=== PATIENT | female | born 1945 | race Caucasian/White ===

== ENCOUNTER 2016-03-29 16:04 | Inpatient (IN) | payer OTHER ==
[~2016-03-29] VITALS: Ht 160 cm; Wt 98.6 kg
[2016-03-29] VITALS (10 sets, daily range): BP systolic 117–149; BP diastolic 60–78; PULSE 79–91; TEMP 37.6–38; O2SAT 92–96; Ht 160 cm; Wt 98.6 kg
[~2016-03-29 16:04] MED LIST: CEPH500C2 PO; CHOL400T PO; DLN100 PO; IPRA1AER2 INH; LEVE500T PO; LPR25 PO; MECL1TAB40 PO; MONT1TAB3 PO; OMEP20CA9 PO; PRED20TA PO; SODIUM CHLORIDE 0.9% 1000ML 1,000 ML IV SCH
--- NOTE | 2016-03-29 16:17 | DIAGNOSTIC IMAGING REPORT ---
CT HEAD WITHOUT CONTRAST (CT) CLINICAL HISTORY: Stroke COMPARISON STUDY: February 23, 2015 TECHNIQUE: Axial CT of the brain is performed from the vertex to the skull base. IV contrast was not administered for this examination. CT DOSE: 2838.54 mGycm FINDINGS: No intra or extra-axial mass lesions are visualized. There is no CT evidence of acute cortical infarction. There is no evidence of midline shift. There is no acute hemorrhage. No calvarial fractures are visualized. There are extensive periventricular white matter hypodensities likely on a small vessel basis. There is no evidence of pathologic ventricular dilatation. There is no evidence of acute sinusitis. There is chronic dense calcification of the left globe. IMPRESSION: Extensive white matter disease similar to the prior study. No acute intracranial findings. Electronically signed by: Saurabh Sesay M.D. 03/29/2016 4:15 PM Dictated Date/Time: 03/29/2016 4:13 PM
[2016-03-29 16:41] LABS: BASO % 0.5 %; BASO ABS # 0.04 K/uL (0-0.2); COMPLETE YES; EOS % 1.8 %; HEMATOCRIT 34.6 % (37-47); IG% 0.3 %; LYMPH % 15.7 %; LYMPH ABS # 1.15 K/uL (1.2-3.4); MEAN CELL VOLUME 78.5 fL (80-100); MEAN CORPUSCULAR HEMOGLOBIN 24.7 pg (25-34); MEAN CORPUSCULAR HGB CONC 31.5 g/dl (32-36); MEAN PLATELET VOLUME 9.9 fL (7.4-10.4); MONO % 5.9 %; NEUT % 75.8 %; PLATELET COUNT 196 K/uL (130-400); RED BLOOD COUNT 4.41 M/uL (4.2-5.4); WHITE BLOOD COUNT 7.31 K/uL (4.8-10.8)
[2016-03-29 16:43] LABS: ISTAT CREATININE 0.7 mg/dl (0.6-1.3); ISTAT HEMOGLOBIN 11.9 g/dl (12.0-16.0); ISTAT IONIZED CALCIUM 1.13 mmol/l (1.12-1.32)
[2016-03-29] MEDS ORDERED: RECOMBINANT IV STA (16:44)
[2016-03-29] MEDS ORDERED: ALTEPLASE IV STA (16:44)
[2016-03-29 16:52] LABS: PROTHROMBIN TIME (PATIENT) 10.8 SECONDS (9.0-12.0)
[2016-03-29] MEDS ORDERED: HYDR-4079 PO (17:11)
[2016-03-29] MEDS ORDERED: PHN/100 PO (17:11)
[2016-03-29] MEDS ORDERED: LEVE750T PO (17:11)
[2016-03-29] MEDS ORDERED: ERGO500037 PO (17:11)
[2016-03-29] MEDS ORDERED: AMOX875T PO (17:11)
[2016-03-29] MEDS ORDERED: ADVIN50/60 INH (17:11)
[2016-03-29] MEDS ORDERED: ATOR-24 PO (17:11)
[2016-03-29] MEDS ORDERED: VNTHFA/IN INH (17:11)
[2016-03-29] MEDS ORDERED: METO25TA56 PO (17:11)
[2016-03-29 17:15] LABS: BLOOD UREA NITROGEN 11 mg/dl (7-18); BUN/CREATININE RATIO 13.3 (10-20); CALCIUM 8.8 mg/dl (8.5-10.1); CARBON DIOXIDE 28 mmol/L (21-32); CHLORIDE 104 mmol/L (98-107); CREATININE 0.82 mg/dl (0.60-1.20); GLUCOSE 114 mg/dl (70-99); POTASSIUM 4.2 mmol/L (3.5-5.1); SODIUM 139 mmol/L (136-145)
[2016-03-29 17:20] LABS: CKMB/CK RATIO 1.5 (0-3.0)
[2016-03-29 17:32] LABS: ALKALINE PHOSPHATASE 126 U/L (45-117); ALT/SGPT 24 U/L (12-78); AST/SGOT 30 U/L (15-37)
[2016-03-29] MEDS ORDERED: ONDANSETRON INJ 2 MG/ML 2 ML VIAL IV PRN (18:15)
[2016-03-29] MEDS ORDERED: ACETAMINOPHEN 325 MG TAB PO PRN (18:15)
[2016-03-29] MEDS ORDERED: PHARMACIST DISCHARGE MED REC CONSULT PRN (18:30)
[2016-03-29] MEDS ORDERED: DEXTROSE 50% 50 ML SYR IV PRN (18:45)
[2016-03-29] MEDS ORDERED: GLUCOSE 10 TABS/TUBE PO PRN (18:45)
[2016-03-29] MEDS ORDERED: GLUCOSE 40% GEL 15 GM TUBE PO PRN (18:45)
[2016-03-29] MEDS ORDERED: GLUCAGON FOR INJ 1 MG VIAL SQ PRN (18:45)
[2016-03-29] MEDS ORDERED: MECLIZINE HCL 12.5 MG TAB PO PRN (18:45)
[2016-03-29 18:57] LABS: URINE APPEARANCE CLEAR (CLEAR); URINE BILIRUBIN NEG (NEG); URINE COLOR YELLOW; URINE EPITHELIAL CELL AUTO 20-30 /lpf (0-5); URINE NITRITE NEG (NEG); URINE PH 8.5 (4.5-7.5); URINE SPECIFIC GRAVITY 1.017 (1.000-1.030); UROBILINOGEN NEG (NEG); ZZUR CULT IF INDIC CLEAN CATCH NO
[2016-03-29 18:59] LABS: MANUAL MICROSCOPIC REQUIRED? NO; REVIEW REQ? NO; SULFASALICYLIC ACID POS (NEG)
[2016-03-29 19:24] LABS: BENZODIAZEPINE, URINE NEG (NEG); COCAINE,URINE NEG (NEG); PHENCYCLIDINE, URINE NEG (NEG)
--- NOTE | 2016-03-29 19:48 | History and Physical ---
History & Physical Date & Time of Service: Mar 29, 2016 at 18:34 Chief Complaint: Stroke Alert Primary Care Physician: Fitz Kapoor M.D. History of Present Illness Source: patient, family, hospital records This is a 70 year old female with PMH of probable small right medial temporal lobe stroke in mid December 2014 as per records, seizure disorder with history of positive EEG, history of STEMI in Dec 2014 as per records, HL, DM type 2, COPD, and other problems listed below who presents to the ED for stroke like symptoms. Pt is a somewhat poor historian about her medical history. Patient states around 1430 she was in her usual state of health when she developed left arm and leg weakness and numbness. She was unable to walk due to leg weakness. Her called 911 and she was brought to the ER by ambulance. states her speech was transiently abnormal when EMS arrived. Once she arrived to the ER she was noted to have left sided motor and sensory deficit so stroke alert was called, teleconference done with [facility]ist Dr. Queen who recommended tPA which was given at 16:44. Patient reports improvement of her weakness s/p tPA. Patient reports frontal [place] with unclear duration. denies any facial droop. Pt denies acute change in vision (has chronic L eye blindness), swallowing difficulty, recent seizure like activity, LOC. Denies recent fevers, URI or flu like illness, chest pain, SOB, abdominal pain, nausea , vomiting, diarrhea, urinary changes, abnormal bleeding. Patient/ not aware of prior stroke or CAD history in the hospital records. Denies hx of arrhythmia. Denies history of open heart surgery or any coronary intervention. Past Medical/Surgical History Medical Problems: (1) CVA (cerebral vascular accident) Status: Chronic (2) Diabetes Permanent Comment: type 2 Status: Chronic (3) Hx of non-ST elevation myocardial infarction (NSTEMI) Status: Chronic (4) Hypercholesteremia Status: Chronic (5) Seizure disorder Permanent Comment: EEG positive in 04/2014 Status: Chronic Surgical Problems: (1) No significant past surgical history Status: Chronic Family History Unobtainable Social History Smoking Status: Former Smoker Alcohol Use: none Drug Use: none Marital Status: Housing status: lives with significant other Occupational Status: unemployed Immunizations History of Influenza Vaccine: Unknown History of Tetanus Vaccine?: Unknown History of Pneumococcal: Unknown History of Hepatitis B Vaccine: Unknown Allergies Coded Allergies: No Known Allergies (Unverified , 12/31/15) unable to obtain allergy info from patient.. -altered mental status Home Medications Scheduled Albuterol Hfa (Ventolin Hfa), 2 PUFFS INH BID Amoxicillin & Pot Clavulanate (Augmentin 875-125 mg), 1 TAB PO BID Atorvastatin (Lipitor), 40 MG PO DAILY Ergocalciferol (Vitamin D 23936 Unit), 50,000 UNIT PO WK Fluticasone Prop/Salmeterol (Advair Diskus 500/50 60 Dose), 1 PUFF INH BID Hydrocodone/Acetaminophen 10MG/325MG ([place] 10MG/325MG), 1 TAB PO 5XD Levetiracetam (Keppra), 750 MG PO BID Metoprolol Tartrate (Lopressor) (Lopressor), 25 MG PO BID Montelukast Sodium (Singulair), 10 MG PO DAILY Omeprazole (Prilosec), 20 MG PO DAILY Phenytoin Sodium (Dilantin), 200 MG PO BID Scheduled PRN Meclizine Hcl (Meclizine Hcl), 12.5 MG PO TID PRN for Dizziness or Vertigo Review of Systems Ten point review of systems performed with pertinent positives negatives listed in HPI. Physical Exam Vital Signs Date Time Temp Pulse Resp B/P Pulse Ox O2 Delivery O2 Flow Rate FiO2 03/29/16 18:30 78 20 153/87 93 Room Air 03/29/16 18:15 75 18 158/138 98 Room Air 03/29/16 18:00 75 22 128/58 98 Room Air 03/29/16 17:43 80 18 132/89 95 Room Air 03/29/16 17:30 77 16 133/60 98 03/29/16 17:15 81 18 136/103 98 Room Air 03/29/16 17:09 82 20 152/69 93 Room Air 03/29/16 17:00 82 152/69 93 Room Air 03/29/16 16:48 83 20 121/81 97 Room Air 03/29/16 16:22 88 03/29/16 16:10 37.2 85 22 156/107 97 Room Air 03/29/16 16:10 96 Room Air General Appearance: WD/WN, no apparent distress, + pertinent finding (alert, cooperative. poor hygiene. at bedside) Head: normocephalic, atraumatic Eyes: normal inspection, EOMI, + pertinent finding (right pupil reactive to light. left pupil is opaque and nonreactive. ) ENT: hearing grossly normal, pharynx normal Neck: supple, no JVD, no carotid bruits, trachea midline Respiratory/Chest: lungs clear, normal breath sounds, no accessory muscle use Cardiovascular: regular rate, rhythm, no murmur Abdomen/GI: normal bowel sounds, non tender, soft Extremities/Musculoskelatal: normal inspection, no calf tenderness, normal capillary refill, no pedal edema Neurologic/Psych: associate art director II-XII nml as tested, no motor/sensory deficits, alert, normal mood/affect, oriented x 3 Skin: normal color, warm/dry Diagnostics Laboratory Results Results Past 24 Hours Test 03/29/16 16:21 03/29/16 16:26 03/29/16 16:27 03/29/16 18:30 Range/Units Bedside Glucose 104 70-90 mg/dl Bedside Hemoglobin 11.9 12.0-16.0 g/dl Bedside Hematocrit 35 37-47 % Bedside Sodium 141 135-144 mEq/L Bedside Potassium 4.3 3.3-5.0 mEq/L Bedside Chloride 102 101-112 mEq/L Bedside Total CO2 26 24-31 mEq/l Anion Gap 19.0 7.0 3-11 mmol/L Bedside Blood Urea Nitrogen 11 7-18 mg/dl Bedside Creatinine 0.7 0.6-1.3 mg/dl Bedside Glucose (other) 120 70-99 mg/dl Bedside Ionized Calcium (Jerzy) 1.13 1.12-1.32 mmol/l White Blood Count 7.31 4.8-10.8 K/uL Red Blood Count 4.41 4.2-5.4 M/uL Hemoglobin 10.9 12.0-16.0 g/dL Hematocrit 34.6 37-47 % Mean Corpuscular Volume 78.5 80-100 fL Mean Corpuscular Hemoglobin 24.7 25-34 pg Mean Corpuscular Hemoglobin Concent 31.5 32-36 g/dl Platelet Count 196 130-400 K/uL Mean Platelet Volume 9.9 7.4-10.4 fL Neutrophils (%) (Auto) 75.8 % Lymphocytes (%) (Auto) 15.7 % Monocytes (%) (Auto) 5.9 % Eosinophils (%) (Auto) 1.8 % Basophils (%) (Auto) 0.5 % Neutrophils # (Auto) 5.54 1.4-6.5 K/uL Lymphocytes # (Auto) 1.15 1.2-3.4 K/uL Monocytes # (Auto) 0.43 0.11-0.59 K/uL Eosinophils # (Auto) 0.13 0-0.5 K/uL Basophils # (Auto) 0.04 0-0.2 K/uL RDW Standard Deviation 45.7 36.4-46.3 fL RDW Coefficient of Variation 15.9 11.5-14.5 % Immature Granulocyte % (Auto) 0.3 % Immature Granulocyte # (Auto) 0.02 0.00-0.02 K/uL Prothrombin Time 10.8 9.0-12.0 SECONDS Prothromb Time International Ratio 1.0 0.9-1.1 Activated Partial Thromboplast Time 25.0 21.0-31.0 SECONDS Partial Thromboplastin Ratio 1.0 Sodium Level 139 136-145 mmol/L Potassium Level 4.2 3.5-5.1 mmol/L Chloride Level 104 98-107 mmol/L Carbon Dioxide Level 28 21-32 mmol/L Blood Urea Nitrogen 11 7-18 mg/dl Creatinine 0.82 0.60-1.20 mg/dl Est Creatinine Clear Calc Drug Dose 75.1 ml/min Estimated GFR () 84.6 Estimated GFR (Non- 73.0 BUN/Creatinine Ratio 13.3 10-20 Random Glucose 114 70-99 mg/dl Calcium Level 8.8 8.5-10.1 mg/dl Total Bilirubin 0.3 0.2-1 mg/dl Direct Bilirubin < 0.1 0-0.2 mg/dl Aspartate Amino Transf (AST/SGOT) 30 15-37 U/L Alanine Aminotransferase (ALT/SGPT) 24 12-78 U/L Alkaline Phosphatase 126 45-117 U/L Total Creatine Kinase 82 26-192 U/L Creatine Kinase MB 1.2 0.5-3.6 ng/ml Creatine Kinase MB Ratio 1.5 0-3.0 Troponin I < 0.015 0-0.045 ng/ml Total Protein 8.2 6.4-8.2 gm/dl Albumin 3.7 3.4-5.0 gm/dl Phenytoin (Dilantin) Level 14.8 10-20 mcg/mL Diagnostic Radiology CT HEAD WITHOUT CONTRAST (CT) CLINICAL HISTORY: Stroke COMPARISON STUDY: February 23, 2015 TECHNIQUE: Axial CT of the brain is performed from the vertex to the skull base. IV contrast was not administered for this examination. CT DOSE: 2838.54 mGycm FINDINGS: No intra or extra-axial mass lesions are visualized. There is no CT evidence of acute cortical infarction. There is no evidence of midline shift. There is no acute hemorrhage. No calvarial fractures are visualized. There are extensive periventricular white matter hypodensities likely on a small vessel basis. There is no evidence of pathologic ventricular dilatation. There is no evidence of acute sinusitis. There is chronic dense calcification of the left globe. IMPRESSION: Extensive white matter disease similar to the prior study. No acute intracranial findings. EKG NSR, no ST elevation or depression Impression Assessment and Plan POSSIBLE ACUTE CVA Admit to ICU- discussed case with Iglesia Jama PA-C, appreciate assistance Patient with history of probable small right medial temporal lobe stroke in mid December 2014, as per neurology note Presented with acute onset of LUE and LLE weakness and numbness CT head- no acute findings, +extensive white matter disease similar to the prior study [facility] consult done with neurologist Dr. Queen - recommended tPA S/p tPA with resolution of symptoms Check MRI brain, MRA head and neck, echo No antiplatelet or anticoagulant for 24 hours post tPA Repeat CT 24 hours post tPA- if no hemorrhage can start antiplatelet Maintain MAP >90 and BP <180/100- metoprolol held for permissive HTN Continue statin, lipid profile in am IVF's at 100 mL/hour PT, OT, speech evals Neuro checks Consult neurology- pt seen by Dr. Estes on prior admission HYPERTENSION Hold metoprolol for permissive HTN DM TYPE 2 Not on medication Insulin sliding scale Check A1c SEIZURE DISORDER Denies recent seizure activity Continue Dilantin and Keppra ? HX CAD Pt/ not aware Per records had NSTEMI in 12/2014 Echo 02/2015 showed hyperdynamic LV function and class 1 diastolic dysfunction No intervention done as per patient/ COPD Not in acute exacerbation Continue home inhalers and Singulair DYSLIPIDEMIA Continue statin GERD Continue PPI FULL CODE per my discussion with the patient DVT PROPHYLAXIS SCD's Patient seen in collaboration with Dr. Kelley. Please see his addendum. ATTENDING ADDENDUM care coordinated with DORINDA Knox please refer to her notes for full details, I agree with her notes patient seen and examined, records reviewed by myself as well on exam, patient seen resting in bed, awake, alert, in good spirits states left sided weakness and numbness have resolved denies other symptoms VS noted and reviewed oriented x 3, not in distress, speaks in sentences with no effort nor accessory muscle use normal rate, regular rhythm, no murmurs clear breath sounds bilaterally non distended, soft, nontender no bipedal edema, erythema, warmth no neuro deficits WBC 7.3 Crea 0.8 ASSESSMENT/PLAN> POSSIBLE ACUTE CVA S/P TPA - Brain MRI, MRA head and neck, Echo ordered HYPERTENSION hold Metoprolol Clonidine PRN for systolic bp > 180 other diagnoses and plan of care as per DORINDA Knox's notes Nathan Kelley MD VTE Prophylaxis VTE Risk Assessment Done? Y/N: Yes Risk Level: Moderate
--- NOTE | 2016-03-29 20:46 | Critical Care Consultation ---
Critical Care Consultation Date of Consultation: Mar 29, 2016. Attending Physician: Nathan Kelley MD Reason for Consultation: Post-TPA management for acute CVA History of Present Illness Attending: Dr. Rojo Is a 70-year-old female who presented to the emergency department with change of mental status and confusion. The patient reports that she was in her normal state of health early in the day when she began to feel some numbness and paresthesias in her left arm and her left leg. Her was getting her into the truck to run errands when she became unresponsive. She was brought to the [facility] emergency department for further evaluation treatment by ambulance. A stroke alert was called and teleconference was completed with [place] neurologist Dr. Queen. TPA was then administered at 1644. Within several minutes symptoms completely abated. Patient does continue to have a frontal headache which has persisted since earlier this morning. Aside from her left-sided per seizes and weakness she's had no other strokelike symptoms other than slurred speech as reported by her which also resolved after administration of TPA. Patient currently does have a history of seizures confirmed by EEG with Dr. Estes. She also has left eye blindness from chronic cataract. She does have some residual swallowing difficulty. She has poor dental hygiene and multiple auto tooth extraction. She manages a soft diet at home. The patient has no fever, chills, sweats, rigors. She is no nausea or vomiting. She denies diarrhea. She has no awareness of tachyarrhythmias. She has no recent acute illness. She does live in an old farmhouse which they heat with wood pellets. She is unaware of any other asthmatic triggers. She has no acute shortness of breath. She has no other acute complaints. Past Medical/Surgical History Medical Problems: Cataract with complete loss of visual acuity in left eye CVA (cerebral vascular accident) Diabetes Hx reported of non-ST elevation myocardial infarction (NSTEMI) although patient and deny awareness of same Hypercholesteremia Seizure disorder Stroke-like symptoms Hx of mechanical falls Surgical Problems: No significant past surgical history Family History Unobtainable Social History Smoking Status: Former Smoker (quit in 1991) Alcohol Use: none Drug Use: none Marital Status: Housing Status: lives with significant other Occupation Status: unemployed Allergies Coded Allergies: No Known Allergies (Unverified , 12/31/15) unable to obtain allergy info from patient.. -altered mental status Home Medications Scheduled Albuterol Hfa (Ventolin Hfa), 2 PUFFS INH BID Amoxicillin & Pot Clavulanate (Augmentin 875-125 mg), 1 TAB PO BID Atorvastatin (Lipitor), 40 MG PO DAILY Ergocalciferol (Vitamin D 81311 Unit), 50,000 UNIT PO WK Fluticasone Prop/Salmeterol (Advair Diskus 500/50 60 Dose), 1 PUFF INH BID Hydrocodone/Acetaminophen 10MG/325MG ([place] 10MG/325MG), 1 TAB PO 5XD Levetiracetam (Keppra), 750 MG PO BID Metoprolol Tartrate (Lopressor) (Lopressor), 25 MG PO BID Montelukast Sodium (Singulair), 10 MG PO DAILY Omeprazole (Prilosec), 20 MG PO DAILY Phenytoin Sodium (Dilantin), 200 MG PO BID Scheduled PRN Meclizine Hcl (Meclizine Hcl), 12.5 MG PO TID PRN for Dizziness or Vertigo Current Inpatient Medications Current Inpatient Medications Medications (Trade) Dose Ordered Sig/Mabel Route Start Time Stop Time Status Last Admin Dose Admin Acetaminophen (Tylenol Tab) 650 mg Q4H PRN PO 03/29/16 18:15 04/28/16 18:14 Ondansetron HCl (Zofran Inj) 4 mg Q6H PRN IV 03/29/16 18:15 04/28/16 18:14 Miscellaneous Information (Pharmacist Discharge Med Rec Consult) 1 ea UD PRN N/A 03/29/16 18:30 04/28/16 18:29 Albuterol (Ventolin Hfa Inhaler) 2 puffs BID INH 03/29/16 21:00 04/28/16 20:59 Atorvastatin Calcium (Lipitor Tab) 40 mg DAILY PO 03/30/16 09:00 04/29/16 08:59 Miscellaneous Information (Order Awaiting Action) 1 ea QS N/A 03/30/16 08:00 04/29/16 07:59 Salmeterol Xinafoate/ Fluticasone (Advair Diskus 500/50 Inh) 1 puff BID INH 03/29/16 21:00 04/28/16 20:59 Levetiracetam (Keppra Tab) 750 mg BID PO 03/29/16 21:00 04/28/16 20:59 Montelukast Sodium (Singulair Tab) 10 mg QPM PO 03/30/16 21:00 04/29/16 20:59 Phenytoin Sodium (Dilantin Er Cap) 200 mg BID PO 03/29/16 21:00 04/28/16 20:59 Meclizine HCl (Antivert Tab) 12.5 mg TID PRN PO 03/29/16 18:45 04/28/16 18:44 Pantoprazole Sodium (Protonix Tab) 40 mg QAM PO 03/30/16 09:00 04/29/16 08:59 Insulin Aspart (novoLOG ASPART) SLIDING SCALE If C... ACHS SC 03/29/16 21:00 04/28/16 20:59 Glucose (Glucose 40% Gel) 15-30 GRAMS 15 GRAMS... UD PRN PO 03/29/16 18:45 04/28/16 18:44 Glucose (Glucose Chew Tab) 4-8 Tablets 4 Tabl... UD PRN PO 03/29/16 18:45 04/28/16 18:44 Dextrose (Dextrose 50% 50ML Syringe) 25-50ML OF 50% DW IV FOR... UD PRN IV 03/29/16 18:45 04/28/16 18:44 Glucagon 1 mg 1 mg UD PRN SQ 03/29/16 18:45 04/28/16 18:44 Sodium Chloride (Nss 1000ml) 1,000 ml @ 100 mls/hr Q10H IV 03/29/16 18:45 04/28/16 18:44 Review of Systems A total of 12 systems was reviewed and is negative other than as listed above in the HPI Physical Exam Date Time Temp Pulse Resp B/P Pulse Ox O2 Delivery O2 Flow Rate FiO2 03/29/16 20:00 37.9 80 20 120/78 94 Room Air 03/29/16 19:45 37.9 91 16 149/61 03/29/16 19:34 81 18 141/77 98 Room Air 03/29/16 19:01 77 18 146/59 97 03/29/16 18:45 78 20 145/57 98 Room Air 03/29/16 18:30 78 20 153/87 93 Room Air 03/29/16 18:15 75 18 158/138 98 Room Air 03/29/16 18:00 75 22 128/58 98 Room Air 03/29/16 17:43 80 18 132/89 95 Room Air 03/29/16 17:30 77 16 133/60 98 03/29/16 17:15 81 18 136/103 98 Room Air 03/29/16 17:09 82 20 152/69 93 Room Air 03/29/16 17:00 82 152/69 93 Room Air 03/29/16 16:48 83 20 121/81 97 Room Air 03/29/16 16:22 88 03/29/16 16:10 37.2 85 22 156/107 97 Room Air 03/29/16 16:10 96 Room Air GENERAL : No acute distress. Pleasant EYES: No icterus, gaze conjugate. Occlusive left cataract NOSE: No evidence of epistaxis. MOUTH: No lesions or candidiasis. Multiple teeth missing. Do not appreciate any loose teeth. Some appreciation of dental caries. Tongue midline. NECK: Supple. No appreciation of bruits LUNGS: Upper field bilateral expiratory wheezes. Breath sounds equal HEART: Regular, rate controlled. No appreciation of murmurs gallops or rubs. ABDOMEN: Soft, NT, ND, BS Present. Protuberant. No tenderness to deep palpation. No rebound tenderness EXTREMITIES: No LE edema, pedal pulses intact. Poor pedal hygiene NEURO: A&OX3. Left eye with significant cataract. No facial droop. No slurred speech. No pronator drift. Cerebellar function intact with finger to nose and rapid alternating movements. No asterixis. Deep tendon reflexes two out of four all four extremities. Gait and Romberg deferred. Toes downgoing bilaterally. Strength equal bilaterally to upper and lower extremities. Laboratory Results Last 24 Hours Test 03/29/16 16:21 03/29/16 16:26 03/29/16 16:27 03/29/16 18:00 Bedside Glucose 104 mg/dl Bedside Hemoglobin 11.9 g/dl Bedside Hematocrit 35 % Bedside Sodium 141 mEq/L Bedside Potassium 4.3 mEq/L Bedside Chloride 102 mEq/L Bedside Total CO2 26 mEq/l Anion Gap 19.0 mmol/L 7.0 mmol/L Bedside Blood Urea Nitrogen 11 mg/dl Bedside Creatinine 0.7 mg/dl Bedside Glucose (other) 120 mg/dl Bedside Ionized Calcium (Jerzy) 1.13 mmol/l White Blood Count 7.31 K/uL Red Blood Count 4.41 M/uL Hemoglobin 10.9 g/dL Hematocrit 34.6 % Mean Corpuscular Volume 78.5 fL Mean Corpuscular Hemoglobin 24.7 pg Mean Corpuscular Hemoglobin Concent 31.5 g/dl Platelet Count 196 K/uL Mean Platelet Volume 9.9 fL Neutrophils (%) (Auto) 75.8 % Lymphocytes (%) (Auto) 15.7 % Monocytes (%) (Auto) 5.9 % Eosinophils (%) (Auto) 1.8 % Basophils (%) (Auto) 0.5 % Neutrophils # (Auto) 5.54 K/uL Lymphocytes # (Auto) 1.15 K/uL Monocytes # (Auto) 0.43 K/uL Eosinophils # (Auto) 0.13 K/uL Basophils # (Auto) 0.04 K/uL RDW Standard Deviation 45.7 fL RDW Coefficient of Variation 15.9 % Immature Granulocyte % (Auto) 0.3 % Immature Granulocyte # (Auto) 0.02 K/uL Prothrombin Time 10.8 SECONDS Prothromb Time International Ratio 1.0 Activated Partial Thromboplast Time 25.0 SECONDS Partial Thromboplastin Ratio 1.0 Sodium Level 139 mmol/L Potassium Level 4.2 mmol/L Chloride Level 104 mmol/L Carbon Dioxide Level 28 mmol/L Blood Urea Nitrogen 11 mg/dl Creatinine 0.82 mg/dl Est Creatinine Clear Calc Drug Dose 75.1 ml/min Estimated GFR () 84.6 Estimated GFR (Non- 73.0 BUN/Creatinine Ratio 13.3 Random Glucose 114 mg/dl Calcium Level 8.8 mg/dl Total Bilirubin 0.3 mg/dl Direct Bilirubin < 0.1 mg/dl Aspartate Amino Transf (AST/SGOT) 30 U/L Alanine Aminotransferase (ALT/SGPT) 24 U/L Alkaline Phosphatase 126 U/L Total Creatine Kinase 82 U/L Creatine Kinase MB 1.2 ng/ml Creatine Kinase MB Ratio 1.5 Troponin I < 0.015 ng/ml Total Protein 8.2 gm/dl Albumin 3.7 gm/dl Phenytoin (Dilantin) Level 14.8 mcg/mL Urine Color YELLOW Urine Appearance CLEAR Urine pH 8.5 Urine Specific [place] 1.017 Urine Protein TRACE Urine Glucose (UA) NEG Urine Ketones NEG Urine Occult Blood NEG Urine Nitrite NEG Urine Bilirubin NEG Urine Urobilinogen NEG Urine Leukocyte Esterase NEG Urine WBC (Auto) 1-5 /hpf Urine RBC (Auto) 0-4 /hpf Urine Hyaline Casts (Auto) 0 /lpf Urine Epithelial Cells (Auto) 20-30 /lpf Urine Bacteria (Auto) NEG Urine Opiates Screen NEG Urine Methadone, Qualitative NEG Urine Barbiturates NEG Urine Phencyclidine (PCP) Level NEG Ur Amphetamine/Methamphetamine NEG MDMA (Ecstasy) Screen NEG Urine Benzodiazepines Screen NEG Urine Cocaine Metabolite NEG Urine Marijuana (THC) NEG Diagnostic Results CT HEAD WITHOUT CONTRAST (CT) CLINICAL HISTORY: Stroke COMPARISON STUDY: February 23, 2015 TECHNIQUE: Axial CT of the brain is performed from the vertex to the skull base. IV contrast was not administered for this examination. CT DOSE: 2838.54 mGycm FINDINGS: No intra or extra-axial mass lesions are visualized. There is no CT evidence of acute cortical infarction. There is no evidence of midline shift. There is no acute hemorrhage. No calvarial fractures are visualized. There are extensive periventricular white matter hypodensities likely on a small vessel basis. There is no evidence of pathologic ventricular dilatation. There is no evidence of acute sinusitis. There is chronic dense calcification of the left globe. IMPRESSION: Extensive white matter disease similar to the prior study. No acute intracranial findings. Electronically signed by: Saurabh Sesay M.D. 03/29/2016 4:15 PM Assessment & Plan (1) CVA (cerebral vascular accident) CT Head with no evidence of acute abnormality [place] [facility] TpA administered at 1644 No further anticoagulation pending neurological consult Symptoms have abated post TpA Check echo, carotid duplex, repeat CT head in the morning Continue neuro checks per protocol Neuro consult (2) Cataract Patient is aware of possible treatment No interest in eye surgery PT/OT to check for imbalance and function (3) Diabetes HgBA1c pending Random glucose 114 AHA, diabetic diet Novolog sliding scale insulin (4) Hypercholesteremia Check fasting lipids Continue Atorvastatin (5) Seizure disorder Continue home dose of Keppra and Dilantin Phenytoin level 14.8 Seizure precautions as patient reports recent seizure like activity (6) Hx of non-ST elevation myocardial infarction (NSTEMI) Patient denies any history of CAD Monitor on telemetry Request outpatient records Not on an ACEI Home meds include Lopressor 25mg PO BID (7) Asthma Faint expiratory wheezes on exam Patient unaware of she has had PFTs Continue bronchodilators and leukotriene inhibitor Continue Advair diskus 500/50 Oxygenation adequate on room air (8) GERD (gastroesophageal reflux disease) Prilosec at home Continue Pantoprazole while inpatient (9) Need for intravenous access Peripheral IV in place No indication for central line at this time (10) DVT prophylaxis TpA administered 03/29/16 at 1644 No further chemical prophylaxis at this time TEDs/SCDs CCT: 0 mins. Level IV inpatient consult Thank you for including us in the care of this patient. Please refer to Dr. Rojo's addendum for further recommendations I have personally evaluated and examined this patient. I agree with assessment and plan of Chandu Jama PA-C. Patient seen by [facility].
[2016-03-29] MEDS: INSULIN ASPART 100 UNITS/ML 3 ML PEN SC SCH (21:00)
[2016-03-29] MEDS: ALBUTEROL HFA 8 GM INHALER INH SCH (21:00)
[2016-03-29] MEDS: LEVETIRACETAM 250 MG TAB PO SCH (21:08)
[2016-03-29] MEDS: PHENYTOIN SODIUM ER 100 MG CAP PO SCH (21:09)
[2016-03-29] MEDS: FLUTICASONE/SALMETEROL (ADVAIR) 500/50 INH 14 PUFF INH SCH (21:10)
[2016-03-29] MEDS: SODIUM CHLORIDE 0.9% 1000ML 1,000 ML IV SCH (21:21)
[2016-03-29] MEDS ORDERED: CLONIDINE HCL 0.1 MG TAB PO PRN (22:15)
--- NOTE | 2016-03-29 22:51 | EMERGENCY ROOM VISIT NOTE ---
History Report prepared by Mirza: Mily Walters Under the Supervision of: Dr. Maverick Hamilton M.D. First contact with patient: 15:55 Stated Complaint: STROKE ALERT History of Present Illness The patient is a 70 year old female who presents to the Emergency Room with complaints of persistent weakness that began around 1430. The patient reportedly developed sudden onset of flaccid paralysis on the left side at 1430 hrs. She has gotten slightly better. She's had waxing and waning weakness and tremors in the left arm. The patient states that she has a mild headache as well. She denies trauma. She additionally notes weakness in her left arm and left leg. The patient states that she has had numbness in her left leg and states that she has been shaking all over uncontrollably. She denies any neck pain or facial numbness. The patient notes a history of seizures and states that she has been compliant with her medications. Pt denies LOC, headache, visual changes, chest pain, breathing difficulties, nausea, vomiting, abdominal pain, back pain, extremity pain, or other complaints. Source of History: patient Onset: 1430 Position: other (global) Quality: other (weakness) Timing: other (persistent) Associated Symptoms: + headache, + numbness (left leg), + weakness (left leg , left arm), No neck pain Review of Systems See HPI for pertinent positives and negatives. A total of ten systems were reviewed and were otherwise negative. Past Medical & Surgical Medical Problems: (1) Asthma (2) Cataract (3) CVA (cerebral vascular accident) (4) Diabetes (5) DVT prophylaxis (6) GERD (gastroesophageal reflux disease) (7) Hx of non-ST elevation myocardial infarction (NSTEMI) (8) Hypercholesteremia (9) Need for intravenous access (10) Seizure disorder (11) Stroke-like symptoms Surgical Problems: (1) No significant past surgical history Family History Unobtainable Social History Smoking Status: Former Smoker Drug Use: none Marital Status: Housing Status: lives with significant other Occupation Status: unemployed Current/Historical Medications Scheduled Albuterol Hfa (Ventolin Hfa), 2 PUFFS INH BID Amoxicillin & Pot Clavulanate (Augmentin 875-125 mg), 1 TAB PO BID Atorvastatin (Lipitor), 40 MG PO DAILY Ergocalciferol (Vitamin D 58383 Unit), 50,000 UNIT PO WK Fluticasone Prop/Salmeterol (Advair Diskus 500/50 60 Dose), 1 PUFF INH BID Hydrocodone/Acetaminophen 10MG/325MG ([place] 10MG/325MG), 1 TAB PO 5XD Levetiracetam (Keppra), 750 MG PO BID Metoprolol Tartrate (Lopressor) (Lopressor), 25 MG PO BID Montelukast Sodium (Singulair), 10 MG PO DAILY Omeprazole (Prilosec), 20 MG PO DAILY Phenytoin Sodium (Dilantin), 200 MG PO BID Scheduled PRN Meclizine Hcl (Meclizine Hcl), 12.5 MG PO TID PRN for Dizziness or Vertigo Allergies Coded Allergies: No Known Allergies (Unverified , 12/31/15) unable to obtain allergy info from patient.. -altered mental status Physical Exam Vital Signs Date Time Temp Pulse Resp B/P Pulse Ox O2 Delivery O2 Flow Rate FiO2 03/29/16 17:43 80 18 132/89 95 Room Air 03/29/16 17:30 77 16 133/60 98 03/29/16 17:15 81 18 136/103 98 Room Air 03/29/16 17:09 82 20 152/69 93 Room Air 03/29/16 17:00 82 152/69 93 Room Air 03/29/16 16:48 83 20 121/81 97 Room Air 03/29/16 16:22 88 03/29/16 16:10 37.2 85 22 156/107 97 Room Air 03/29/16 16:10 96 Room Air Physical Exam GENERAL: Awake, alert, well appearing, no distress HENT: Normocephalic, atraumatic. TM's normal. Oropharynx unremarkable. 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 Right eye is equal and reactive. EOMI. Normal conjunctiva. Sclera non-icteric. NECK: Supple. No nuchal rigidity. FROM. No JVD or bruit. RESPIRATORY: CTA CARDIAC: RRR. No murmur. ABDOMEN: Soft, non distended. No tenderness to palpation. No rebound or guarding. No masses. RECTAL: Deferred. MUSCULOSKELETAL: Unremarkable. No edema. No discoloration. Gross motor strength symmetric. NEURO: Intermittent rhythmic shaking of left upper arm. Fluctuating weakness in the left leg. Cranial nerves 2-12 grossly intact. Normal sensorium. No sensory or motor deficits noted. Speech normal. No pronator drift. SKIN: No rash or jaundice noted. LYMPH: No adenopathy. Medical Decision & Procedures ER Provider Diagnostic Interpretation: CT: Radiology results as stated below per my review and radiologist interpretation CT HEAD WITHOUT CONTRAST (CT) CLINICAL HISTORY: Stroke COMPARISON STUDY: February 23, 2015 TECHNIQUE: Axial CT of the brain is performed from the vertex to the skull base. IV contrast was not administered for this examination. CT DOSE: 2838.54 mGycm FINDINGS: No intra or extra-axial mass lesions are visualized. There is no CT evidence of acute cortical infarction. There is no evidence of midline shift. There is no acute hemorrhage. No calvarial fractures are visualized. There are extensive periventricular white matter hypodensities likely on a small vessel basis. There is no evidence of pathologic ventricular dilatation. There is no evidence of acute sinusitis. There is chronic dense calcification of the left globe. IMPRESSION: Extensive white matter disease similar to the prior study. No acute intracranial findings. Electronically signed by: Saurabh Seasy M.D. 03/29/2016 4:15 PM Dictated Date/Time: 03/29/2016 4:13 PM Laboratory Results 03/29/16 16:27 Red Blood Count 4.41, Mean Corpuscular Volume 78.5, Mean Corpuscular Hemoglobin 24.7, Mean Corpuscular Hemoglobin Concent 31.5, Mean Platelet Volume 9.9, Neutrophils (%) (Auto) 75.8, Lymphocytes (%) (Auto) 15.7, Monocytes (%) (Auto) 5.9, Eosinophils (%) (Auto) 1.8, Basophils (%) (Auto) 0.5, Neutrophils # (Auto) 5.54, Lymphocytes # (Auto) 1.15, Monocytes # (Auto) 0.43, Eosinophils # (Auto) 0.13, Basophils # (Auto) 0.04 03/29/16 16:27 Test 03/29/16 16:26 03/29/16 16:27 Bedside Hemoglobin 11.9 g/dl (12.0-16.0) Bedside Hematocrit 35 % (37-47) Bedside Sodium 141 mEq/L (135-144) Bedside Potassium 4.3 mEq/L (3.3-5.0) Bedside Chloride 102 mEq/L (101-112) Bedside Total CO2 26 mEq/l (24-31) Bedside Blood Urea Nitrogen 11 mg/dl (7-18) Bedside Creatinine 0.7 mg/dl (0.6-1.3) Bedside Glucose (other) 120 mg/dl (70-99) Bedside Ionized Calcium (Jerzy) 1.13 mmol/l (1.12-1.32) White Blood Count 7.31 K/uL (4.8-10.8) Red Blood Count 4.41 M/uL (4.2-5.4) Hemoglobin 10.9 g/dL (12.0-16.0) Hematocrit 34.6 % (37-47) Mean Corpuscular Volume 78.5 fL (80-100) Mean Corpuscular Hemoglobin 24.7 pg (25-34) Mean Corpuscular Hemoglobin Concent 31.5 g/dl (32-36) Platelet Count 196 K/uL (130-400) Mean Platelet Volume 9.9 fL (7.4-10.4) Neutrophils (%) (Auto) 75.8 % Lymphocytes (%) (Auto) 15.7 % Monocytes (%) (Auto) 5.9 % Eosinophils (%) (Auto) 1.8 % Basophils (%) (Auto) 0.5 % Neutrophils # (Auto) 5.54 K/uL (1.4-6.5) Lymphocytes # (Auto) 1.15 K/uL (1.2-3.4) Monocytes # (Auto) 0.43 K/uL (0.11-0.59) Eosinophils # (Auto) 0.13 K/uL (0-0.5) Basophils # (Auto) 0.04 K/uL (0-0.2) RDW Standard Deviation 45.7 fL (36.4-46.3) RDW Coefficient of Variation 15.9 % (11.5-14.5) Immature Granulocyte % (Auto) 0.3 % Immature Granulocyte # (Auto) 0.02 K/uL (0.00-0.02) Prothrombin Time 10.8 SECONDS (9.0-12.0) Prothromb Time International Ratio 1.0 (0.9-1.1) Activated Partial Thromboplast Time 25.0 SECONDS (21.0-31.0) Partial Thromboplastin Ratio 1.0 Anion Gap 7.0 mmol/L (3-11) Est Creatinine Clear Calc Drug Dose 75.1 ml/min Estimated GFR () 84.6 Estimated GFR (Non- 73.0 BUN/Creatinine Ratio 13.3 (10-20) Calcium Level 8.8 mg/dl (8.5-10.1) Total Bilirubin 0.3 mg/dl (0.2-1) Direct Bilirubin < 0.1 mg/dl (0-0.2) Aspartate Amino Transf (AST/SGOT) 30 U/L (15-37) Alanine Aminotransferase (ALT/SGPT) 24 U/L (12-78) Alkaline Phosphatase 126 U/L (45-117) Total Creatine Kinase 82 U/L (26-192) Creatine Kinase MB 1.2 ng/ml (0.5-3.6) Creatine Kinase MB Ratio 1.5 (0-3.0) Troponin I < 0.015 ng/ml (0-0.045) Total Protein 8.2 gm/dl (6.4-8.2) Albumin 3.7 gm/dl (3.4-5.0) Phenytoin (Dilantin) Level 14.8 mcg/mL (10-20) Laboratory results reviewed by me Medications Administered Medications (Trade) Dose Ordered Sig/Mabel Route Start Time Stop Time Status Last Admin Dose Admin Sodium Chloride 1,000 ml @ 50 mls/hr Q20H IV 03/29/16 16:02 03/29/16 20:20 DC 03/29/16 16:41 50 MLS/HR Alteplase, Recombinant/Empty Bag (Activase Inj/ Empty Iv Bag 100ml) 190 ml @ 0 mls/hr NOW STAT IV 03/29/16 16:44 03/29/16 16:48 DC 03/29/16 16:44 81 MLS/HR ECG Indication: other (stroke symptoms) Rate (beats per minute): 76 Rhythm: normal sinus Findings: no acute ischemic change, no ectopy ED Course 1535: I took the medical command call on the patient and the decision was made to place the patient in room A1 and to call a stroke alert. 1602: Ordered Sodium Chloride 1000 ml @ 50 mls/hr IV. 1604: The patient arrived at the emergency department and was taken straight to have a CT scan. 1616: The patient was evaluated in room A1. A complete history and physical exam was performed. The radiologist additionally called at this time and said that there is no acute stroke. 1625: Records revealed that the patient had an EEG in December 2014 that revealed seizure activity in left frontal and left temporal region 1629: I discussed the patients case with Dr. Queen, [facility] and he states that we should stand by with TPA, and he is going to evaluate the patient over TeleStroke. 1635: I reevaluated the patient and she is still experiencing her symptoms. 1644: Ordered Alteplase Recombinant 90 mg/Empty Bag 190 ml @ 0 mls/hr Protocol IV. 1649: The TPA bolus was administered at this time. 1657: I reevaluated the patient and she is resting comfortably. I discussed the exam findings and I discussed the treatment plan. She verbalized complete understanding and agreement. She will be evaluated for further treatment. 1706: I discussed the patients case with LISBETH Nolan. She is going to evaluate the patient for further treatment. 1723: I reevaluated the patient and she is doing better. Medical Decision Triage Nursing notes reviewed. The patient's presentation and history were concerning for strokelike symptoms. Etiologies such as CVA, TIA, seizure, metabolic, infection, hypo/hyperglycemia, electrolyte abnormalities, cardiac sources, intracerebral event, toxicologic, neurologic, as well as others were entertained. The patient was evaluated. I did take prehospital medical command. A stroke alert was initiated. A CT was done immediately. This was negative for obvious ischemia or bleed. A consultation was placed with [facility]. The patient was evaluated as noted in the consultation. It was felt that she was a candidate for TPA. The patient was given TPA in the standard fashion. Pharmacy was at the bedside. The patient had no contra indications and consented for neurology. On reassessment the patient was feeling somewhat better and had improvement in her weakness. ECG revealed no evidence of dysrhythmia. Cbc, chemistry panel and other blood work was unremarkable. Consultation was made with the hospitalist service. The patient was evaluated in the Emergency Room for further treatment. The chart was completed utilizing [employer] voice recognition software. Grammatical errors, random word insertions, pronoun errors, and incomplete sentences are an occasional consequence of this system due to software limitations, ambient noise, and hardware issues. Any formal questions or concerns about the content, text, or information contained within the body of this dictation should be directly addressed to the physician for clarification. Consults Time Called: 162 Consulting Physician: [facility] Returned Call: 162 I discussed the patients case with [facility] and he states that we should stand by with TPA, and he is going to evaluate the patient over TeleStroke. Additional Consults: Time Called: 170 Consulted Physician: LISBETH Nolan Returned Call: 170 Additional Comments: I discussed the patients case with LISBETH Nolan. She is going to evaluate the patient for further treatment. Impression Primary Impression: CVA (cerebral vascular accident) Critical Care I have personally spent greater than 30 minutes of critical care time in the direct management of this patient. This includes bedside care, interpretation of diagnostic studies, and testing, discussion with consultants and patient, and other required patient management activities. This 30 minutes is in excess of all separately billable procedures. Scribe Attestation The scribe's documentation has been prepared under my direction and personally reviewed by me in its entirety. I confirm that the note above accurately reflects all work, treatment, procedures, and medical decision making performed by me. Departure Information Dispostion Being Evaluated By Hospitalist Fitz Berumen M.D. (PCP)
[2016-03-30] VITALS (25 sets, daily range): BP systolic 114–171; BP diastolic 59–107; PULSE 72–94; TEMP 36.4–37.2; O2SAT 90–97
[2016-03-30] MEDS: [UNRECOGNIZED DRUG - OTHER] SCH ×2 (00:34→00:35)
[2016-03-30] MEDS ORDERED: MAGNEVIST IV PRN (02:15)
[2016-03-30] MEDS: SODIUM CHLORIDE 0.9% 1000ML 1,000 ML IV SCH ×2 (04:43→15:00)
[2016-03-30 06:03] LABS: BASO % 0.3 %; BASO ABS # 0.02 K/uL (0-0.2); COMPLETE YES; EOS % 3.7 %; HEMATOCRIT 30.5 % (37-47); IG% 0.2 %; LYMPH % 24.5 %; LYMPH ABS # 1.47 K/uL (1.2-3.4); MEAN CELL VOLUME 78.2 fL (80-100); MEAN CORPUSCULAR HEMOGLOBIN 24.4 pg (25-34); MEAN CORPUSCULAR HGB CONC 31.1 g/dl (32-36); MEAN PLATELET VOLUME 9.8 fL (7.4-10.4); MONO % 9.8 %; NEUT % 61.5 %; PLATELET COUNT 161 K/uL (130-400); WHITE BLOOD COUNT 6.01 K/uL (4.8-10.8)
[2016-03-30 06:19] LABS: INR 1.2 (0.9-1.1); PROTHROMBIN TIME (PATIENT) 12.4 SECONDS (9.0-12.0)
[2016-03-30 06:27] LABS: BUN/CREATININE RATIO 15.7 (10-20); CALCIUM 8.2 mg/dl (8.5-10.1); CREATININE 0.69 mg/dl (0.60-1.20); POTASSIUM 3.6 mmol/L (3.5-5.1)
[2016-03-30 06:31] LABS: CHOLESTEROL/HDL RATIO 2.8
[2016-03-30] MEDS: INSULIN ASPART 100 UNITS/ML 3 ML PEN SC SCH ×4 (06:45→21:00)
[2016-03-30 06:56] LABS: ESTIMATED AVERAGE GLUCOSE 123 mg/dl; HA1C FLAG Normal (Normal)
--- NOTE | 2016-03-30 07:16 | DIAGNOSTIC IMAGING REPORT ---
Brain MRA HISTORY: stroke TECHNIQUE: 3-D [id number] MRA of the brain was performed without contrast. COMPARISON STUDY: None. FINDINGS: Motion degradation. Visualized intracranial internal carotid arteries, distal vertebral arteries, and basilar artery are widely patent. There is no significant stenosis, occlusion, or aneurysm seen within the bilateral ACAs, MCAs, or glass vial filler. IMPRESSION: Motion degradation. No definite stenosis, occlusion, or aneurysm within the north fork of [place]dy. Electronically signed by: Sherman Hernandez M.D. 03/30/2016 7:14 AM Dictated Date/Time: 03/30/2016 7:11 AM
--- NOTE | 2016-03-30 07:20 | DIAGNOSTIC IMAGING REPORT ---
NECK MRA HISTORY: Stroke symptoms. TECHNIQUE: [id number] and gadolinium-enhanced MRA of the neck was performed both before and after the intravenous administration of contrast. All measurements were calculated based on NASCET criteria. COMPARISON STUDY: Neck CTA 02/22/2015. FINDINGS: Significant motion artifact. The aortic arch and proximal great vessels are widely patent. There is no definite stenosis, occlusion, or dissection identified within the visualized bilateral common carotid, internal carotid, or vertebral arteries. IMPRESSION: Significant motion artifact. No definite stenosis, occlusion, or dissection identified within the carotid or vertebral arteries. Electronically signed by: Sherman Hernandez M.D. 03/30/2016 7:18 AM Dictated Date/Time: 03/30/2016 7:14 AM
--- NOTE | 2016-03-30 07:21 | DIAGNOSTIC IMAGING REPORT ---
MRI OF THE BRAIN COMBO CLINICAL HISTORY: Strokelike symptoms. COMPARISON STUDY: CT of the brain dated 03/29/2016. MRI of the brain dated 02/22/2015. TECHNIQUE: MRI of the brain was performed utilizing various T1 and T2-weighted sequences in the axial, sagittal, and coronal planes. Contrast-enhanced sequences were acquired following the administration of 20 cc of Magnevist. The examination is significantly degraded by motion artifact. The postcontrast images are of limited utility. FINDINGS: Brain parenchyma: There are age-related involutional changes noting moderate confluent subcortical and periventricular microangiopathic disease. Left cerebellar encephalomalacia is unchanged. There is no hemorrhage or mass effect. There is no restricted diffusion to suggest acute ischemia. No enhancing mass lesion is identified on the postcontrast images. Thinning of the corpus callosum is similar to previous. Wilcox-white matter differentiation is preserved. No extra-axial fluid collection is seen. The cerebellar tonsils are normal in configuration. Ventricles, sulci, and cisterns: Prominent secondary to involutional change. Pituitary and sella: Unremarkable. Intracranial vasculature: Normal flow voids are maintained at the skull base. Orbits: The bony orbits are grossly intact. Deformity of the left globe is unchanged from previous. The right orbital contents are normal as imaged. Sinuses and mastoids: Clear. Calvarium: Unremarkable. Cervical cord: Partially visualized cervical spinal cord is normal in morphology and signal intensity. IMPRESSION: 1. Motion degraded examination. 2. There is no hemorrhage, mass effect, or evidence of acute ischemia. 3. Chronic findings as above. There has been no significant change from the 02/22/2015 examination. Electronically signed by: Iglesia Morgan M.D. 03/30/2016 7:19 AM Dictated Date/Time: 03/30/2016 7:15 AM
--- NOTE | 2016-03-30 08:32 | Neurology Consultation ---
Neurology Consultation Date of Consultation: Mar 30, 2016. Attending Physician: Nathan Kelley MD Primary Care Physician: Fitz Kapoor M.D. Reason for Consultation: Patient is a 70-year-old, who was asked to see at the request of Dr. Kelley, for neurologic consultation regarding stroke like symptoms. History of Present Illness Source: patient, caregiver, clinic records, hospital records Patient has a history of seizures which date back to her mid-teen years secondary to her head injury (that led to hospitalization in [place]). She has been on Dilantin ever since her teen years. I first saw this patient in April 2014 for an unresponsive episode. At that time an EEG showed focal, right frontotemporal seizure activity. There were left temporal sharp waves intermittently as well. She was on Dilantin and Keppra was added. MRI of the brain at that time showed no new stroke or any new CVA. She had an unresponsive episode and was hospitalized in December 2014. An MRI of the brain at that time showed a possible new stroke in the right medial temporal lobe. Echocardiogram was unremarkable. She was not compliant with her anticonvulsants and was discharged on Dilantin 200 mg twice a day and Keppra 500 mg twice a day. Her seizures were under fairly good control until February 2015. She was admitted at that time with symptoms of a conflicting account. She had jerking of all of her limbs for 15 minutes with unresponsive and then awoke after 15 minutes. She had some involuntary intermittent movements of her right upper extremity. A tele-stroke consult was obtained with and she was given TPA. She is being transferred to our institution and an MRI of the brain was obtained and showed no new stroke. There was generalized atrophy and old small vessel ischemic changes similar to previous. She was discharged on Dilantin 200 mg twice a day and Keppra 750 mg twice a day. She never returned for follow-up but claims to have been compliant over the course of 2015 with her Dilantin and Keppra. She believes that she's had no seizures this past year. On March 29, 2016, she awoke in her usual state of good health and did well that morning. She was out for an appointment and came home around noon without any symptoms. Sometime between 1 and 2 in the afternoon she felt nauseated although didn't vomit. She lay down and felt that by mid afternoon her left upper extremity was numb and weak and "didn't belong to her". Although there are conflicting accounts, I don't believe she was actually paralyzed but was weak and having some possible involuntary movements of the left side. Leg was affected as well as the arm but she had no facial droop. She felt that her speech was slurred and she had no loss of consciousness that she admits to. There was one note of some confusion but others felt that she wasn't confused. She had a mild bifrontal headache. She arrived at the emergency room at 1610 hours with a temperature 37 2, pulse 85, respiratory rate 22, blood pressure 156/107, and O2 saturation 97%. Neurologic examination was remarkable for fluctuating weakness of the left arm and leg with some abnormal movements or shaking of the left arm. NIH stroke scale was recorded as 3 and a little later as 4. CT scan of the head showed no acute changes and old small vessel ischemic disease as before A tele-stroke consultation was obtained with and TPA was given at 1644 hrs. Apparently her left-sided weakness completely resolved. By the time she was brought to the ICU examination was consistent with no significant neurologic deficits. However, NIH stroke scale overnight by nursing was recorded as 2 at 0630 hours this morning Currently, the patient feels well with no weakness, numbness, pain, headache, speech problems, or confusion. She had no incontinence of urine. She has no vision issues of a new nature. Laboratory studies were unremarkable except for mild anemia and a normal chem profile except for calcium of 8.2. Lipid profile was normal and Dilantin level is 14.8. MRI of the brain showed no acute stroke or bleed. The old ischemic changes were similar to February 2015 MR angiography of the head and neck were degraded by some motion but seemed unremarkable with no significant stenoses or aneurysm. Past Medical/Surgical History Medical Problems: (1) CVA (cerebral vascular accident) Status: Chronic (2) Hypoxia Status: Acute (3) S/P administration of tPA (rtPA) in a different facility within the last 24 hours prior to admission to current facility Status: Acute Hypertension Diabetes Dyslipidemia Seizure disorder No history of prior surgery although the patient has a left carpal tunnel syndrome repair scar she denies having had that surgery. Family History Patient is adopted and has no record knowledge of any medical problems of her biological parents Social History Patient quit cigarette smoking in 1991. She does not use alcohol. She has never been employed. She lives with her . Smoking Status: Former smoker Smokeless Tobacco Use: No Alcohol Use: none Drug Use: none Marital Status: Housing Status: lives with significant other Occupation Status: unemployed Allergies Coded Allergies: No Known Allergies (Unverified , 12/31/15) unable to obtain allergy info from patient.. -altered mental status Current Inpatient Medications Current Inpatient Medications Medications (Trade) Dose Ordered Sig/Mabel Route Start Time Stop Time Status Last Admin Dose Admin Acetaminophen (Tylenol Tab) 650 mg Q4H PRN PO 03/29/16 18:15 04/28/16 18:14 03/30/16 04:25 650 MG Ondansetron HCl (Zofran Inj) 4 mg Q6H PRN IV 03/29/16 18:15 04/28/16 18:14 Miscellaneous Information (Pharmacist Discharge Med Rec Consult) 1 ea UD PRN N/A 03/29/16 18:30 04/28/16 18:29 Albuterol (Ventolin Hfa Inhaler) 2 puffs BID INH 03/29/16 21:00 04/28/16 20:59 03/29/16 21:00 2 PUFFS Atorvastatin Calcium (Lipitor Tab) 40 mg DAILY PO 03/30/16 09:00 04/29/16 08:59 Miscellaneous Information (Order Awaiting Action) 1 ea QS N/A 03/30/16 08:00 04/29/16 07:59 Salmeterol Xinafoate/ Fluticasone (Advair Diskus 500/50 Inh) 1 puff BID INH 03/29/16 21:00 04/28/16 20:59 03/29/16 21:10 1 PUFF Levetiracetam (Keppra Tab) 750 mg BID PO 03/29/16 21:00 04/28/16 20:59 03/29/16 21:08 750 MG Montelukast Sodium (Singulair Tab) 10 mg QPM PO 03/30/16 21:00 04/29/16 20:59 Phenytoin Sodium (Dilantin Er Cap) 200 mg BID PO 03/29/16 21:00 04/28/16 20:59 1/5/17 21:09 200 MG Meclizine HCl (Antivert Tab) 12.5 mg TID PRN PO 03/29/16 18:45 04/28/16 18:44 Pantoprazole Sodium (Protonix Tab) 40 mg QAM PO 03/30/16 09:00 04/29/16 08:59 Insulin Aspart (novoLOG ASPART) SLIDING SCALE If C... ACHS SC 03/29/16 21:00 04/28/16 20:59 Glucose (Glucose 40% Gel) 15-30 GRAMS 15 GRAMS... UD PRN PO 03/29/16 18:45 04/28/16 18:44 Glucose (Glucose Chew Tab) 4-8 Tablets 4 Tabl... UD PRN PO 03/29/16 18:45 04/28/16 18:44 Dextrose (Dextrose 50% 50ML Syringe) 25-50ML OF 50% DW IV FOR... UD PRN IV 03/29/16 18:45 04/28/16 18:44 Glucagon 1 mg 1 mg UD PRN SQ 03/29/16 18:45 04/28/16 18:44 Sodium Chloride (Nss 1000ml) 1,000 ml @ 100 mls/hr Q10H IV 03/29/16 18:45 04/28/16 18:44 03/30/16 04:43 100 MLS/HR Clonidine HCl (Catapres Tab) 0.1 mg Q6H PRN PO 03/29/16 22:15 04/28/16 22:14 Gadopentetate Dimeglumine (Magnevist) 20 ml UD PRN IV 03/30/16 02:15 04/03/16 02:14 Review of Systems Constitutional: + weakness, No fatigue Eyes: No diplopia, No worsening of vision ENT: No sore throat, No tinnitus, No trouble swallowing Respiratory: No cough, No shortness of breath Cardiovascular: No chest pain, No palpitations Abdomen: No nausea, No pain Musculoskeletal: No joint pain, No muscle pain Genitourinary - Female: No dysuria, No urinary incontinence Neurologic: + weakness, No balance problems, No memory loss, No numbness/ tingling, No vertigo Psychiatric: No anxiety, No depression symptoms Endocrine: No fatigue Hematologic / Lymphatic: No abnormal bleeding/bruising Integumentary: No rash Allergic / Immunologic: No hives Physical Exam Vital Signs (Past 24 Hrs): Date Time Temp Pulse Resp B/P Pulse Ox O2 Delivery O2 Flow Rate FiO2 03/30/16 06:19 75 16 129/59 95 Room Air 03/30/16 05:19 74 17 130/79 93 Room Air 03/30/16 04:19 76 17 125/70 95 Room Air 03/30/16 04:00 96 Room Air 03/30/16 03:19 76 17 119/65 93 Room Air 03/30/16 02:19 37.2 76 19 119/73 93 Room Air 03/30/16 01:51 87 16 141/87 96 Room Air 03/30/16 00:15 85 16 122/71 95 Room Air 03/30/16 00:00 96 Room Air 03/29/16 23:49 38.0 79 18 122/71 95 Room Air 03/29/16 23:19 82 19 120/60 92 Room Air 03/29/16 22:49 37.6 84 17 121/67 94 Room Air 03/29/16 22:19 84 19 117/63 96 Room Air 03/29/16 21:49 84 17 129/77 95 Room Air 03/29/16 21:19 90 18 136/74 94 Room Air 03/29/16 20:49 37.9 85 16 137/68 93 Room Air 03/29/16 20:30 81 18 142/73 95 Room Air 03/29/16 20:00 37.9 80 20 120/78 94 Room Air 03/29/16 19:45 37.9 91 16 149/61 94 Room Air 03/29/16 19:34 81 18 141/77 98 Room Air 03/29/16 19:01 77 18 146/59 97 03/29/16 18:45 78 20 145/57 98 Room Air 03/29/16 18:30 78 20 153/87 93 Room Air 03/29/16 18:15 75 18 158/138 98 Room Air 03/29/16 18:00 75 22 128/58 98 Room Air 03/29/16 17:43 80 18 132/89 95 Room Air 03/29/16 17:30 77 16 133/60 98 03/29/16 17:15 81 18 136/103 98 Room Air 03/29/16 17:09 82 20 152/69 93 Room Air 03/29/16 17:00 82 152/69 93 Room Air 03/29/16 16:48 83 20 121/81 97 Room Air 03/29/16 16:22 88 03/29/16 16:10 37.2 85 22 156/107 97 Room Air 03/29/16 16:10 96 Room Air The patient is right-handed. The patient is awake and alert. Speech is normal without aphasia or dysarthria , although she has a few teeth which gives her some mild mechanical speech problems. . Mentation and thought processes are intact with orientation and normal fund of knowledge. Mood and affect are normal and appropriate. Appearance and grooming are normal. The disc is sharp on the right with positive venous pulsations. The left eye has an opacified lens and this cannot be visualized she is blind in the left eye.. Pupil is 4mm on the right and reactive to light. Extraocular eye muscles are intact without nystagmus. Visual acuity and visual haines seem normal grossly to confrontation in the right eye. There are no deficits to sensation of the face bilaterally. Corneal reflexes are positive bilaterally. Facial strength and symmetry is normal bilaterally. There is no facial droop. Hearing seems intact grossly to voice and finger rub. Palate moves well without asymmetry. There is normal sternocleidomastoid and trapezius strength bilaterally. Tongue is midline with good strength bilaterally. Neck is with full range of motion without discomfort. There are no cervical bruits. There are no cranial or ocular bruits. Heart is without murmur. Cervical, thoracic, and lumbar spine are nontender to palpation. Gait is narrow based and reasonable with assistance of one. Stance sitting up in bed is normal with feet dangling over the edge. With outstretched arms there is no actual drift. There are no resting, postural , or action tremors. There is no ataxia with [id number] testing. She does have some occasional posturing of her left arm by lifting it up in the air and holding it there, but when I tell reported down she immediately does so. There is good facility in the hands. There are no abnormal involuntary movements noted. Motor strength is 5/5 diffusely in the arms bilaterally including deltoids, biceps, brachioradialis, wrist flexors and extensors, vice president [employer] philanth[employer], and intrinsic hand muscles. Motor strength is 5/5 diffusely in the legs bilaterally including hip flexors, quadriceps, hamstring, gastrocnemius, tibialis anterior, tibialis posterior, and peroneii muscles bilaterally. Toe extensors are normal and there is good bulk in the extensor digitorum brevis muscle bilaterally. The limbs have good tone without rigidity or spasticity, and there is no atrophy noted. Muscle bulk is normal, there is no tenderness, no myotonia noted to percussion, and no fasciculations seen. Sensory examination is intact to pin and touch throughout all four limbs. Reflexes are 2/4 in the biceps, triceps, brachioradialis, quadriceps, and Achilles tendons bilaterally. Toes are downgoing with plantar stimulation bilaterally. Peripheral pulses are present and of normal quality distally in all four limbs. There is no peripheral edema noted. Laboratory Results Past 24 Hours: 03/30/16 05:36 Red Blood Count 3.90, Mean Corpuscular Volume 78.2, Mean Corpuscular Hemoglobin 24.4, Mean Corpuscular Hemoglobin Concent 31.1, Mean Platelet Volume 9.8, Neutrophils (%) (Auto) 61.5, Lymphocytes (%) (Auto) 24.5, Monocytes (%) (Auto) 9.8, Eosinophils (%) (Auto) 3.7, Basophils (%) (Auto) 0.3, Neutrophils # (Auto) 3.70, Lymphocytes # (Auto) 1.47, Monocytes # (Auto) 0.59, Eosinophils # (Auto) 0.22, Basophils # (Auto) 0.02 03/30/16 05:36 Test 03/29/16 16:26 03/29/16 16:27 03/29/16 18:00 03/29/16 21:01 Bedside Hemoglobin 11.9 g/dl (12.0-16.0) Bedside Hematocrit 35 % (37-47) Bedside Sodium 141 mEq/L (135-144) Bedside Potassium 4.3 mEq/L (3.3-5.0) Bedside Chloride 102 mEq/L (101-112) Bedside Total CO2 26 mEq/l (24-31) Bedside Blood Urea Nitrogen 11 mg/dl (7-18) Bedside Creatinine 0.7 mg/dl (0.6-1.3) Bedside Glucose (other) 120 mg/dl (70-99) Bedside Ionized Calcium (Jerzy) 1.13 mmol/l (1.12-1.32) Activated Partial Thromboplast Time 25.0 SECONDS (21.0-31.0) Partial Thromboplastin Ratio 1.0 Estimated Average Glucose 123 mg/dl Hemoglobin A1c 5.9 % (4.5-5.6) Total Bilirubin 0.3 mg/dl (0.2-1) Direct Bilirubin < 0.1 mg/dl (0-0.2) Aspartate Amino Transf (AST/SGOT) 30 U/L (15-37) Alanine Aminotransferase (ALT/SGPT) 24 U/L (12-78) Alkaline Phosphatase 126 U/L (45-117) Total Creatine Kinase 82 U/L (26-192) Creatine Kinase MB 1.2 ng/ml (0.5-3.6) Creatine Kinase MB Ratio 1.5 (0-3.0) Troponin I < 0.015 ng/ml (0-0.045) Total Protein 8.2 gm/dl (6.4-8.2) Albumin 3.7 gm/dl (3.4-5.0) Phenytoin (Dilantin) Level 14.8 mcg/mL (10-20) Urine Color YELLOW Urine Appearance CLEAR (CLEAR) Urine pH 8.5 (4.5-7.5) Urine Specific [place] 1.017 (1.000-1.030) Urine Protein TRACE (NEG) Urine Glucose (UA) NEG (NEG) Urine Ketones NEG (NEG) Urine Occult Blood NEG (NEG) Urine Nitrite NEG (NEG) Urine Bilirubin NEG (NEG) Urine Urobilinogen NEG (NEG) Urine Leukocyte Esterase NEG (NEG) Urine WBC (Auto) 1-5 /hpf (0-5) Urine RBC (Auto) 0-4 /hpf (0-4) Urine Hyaline Casts (Auto) 0 /lpf (0-5) Urine Epithelial Cells (Auto) 20-30 /lpf (0-5) Urine Bacteria (Auto) NEG (NEG) Urine Opiates Screen NEG (NEG) Urine Methadone, Qualitative NEG (NEG) Urine Barbiturates NEG (NEG) Urine Phencyclidine (PCP) Level NEG (NEG) Ur Amphetamine/Methamphetamine NEG (NEG) MDMA (Ecstasy) Screen NEG (NEG) Urine Benzodiazepines Screen NEG (NEG) Urine Cocaine Metabolite NEG (NEG) Urine Marijuana (THC) NEG (NEG) Bedside Glucose 115 mg/dl (70-90) Test 03/30/16 05:36 White Blood Count 6.01 K/uL (4.8-10.8) Red Blood Count 3.90 M/uL (4.2-5.4) Hemoglobin 9.5 g/dL (12.0-16.0) Hematocrit 30.5 % (37-47) Mean Corpuscular Volume 78.2 fL (80-100) Mean Corpuscular Hemoglobin 24.4 pg (25-34) Mean Corpuscular Hemoglobin Concent 31.1 g/dl (32-36) Platelet Count 161 K/uL (130-400) Mean Platelet Volume 9.8 fL (7.4-10.4) Neutrophils (%) (Auto) 61.5 % Lymphocytes (%) (Auto) 24.5 % Monocytes (%) (Auto) 9.8 % Eosinophils (%) (Auto) 3.7 % Basophils (%) (Auto) 0.3 % Neutrophils # (Auto) 3.70 K/uL (1.4-6.5) Lymphocytes # (Auto) 1.47 K/uL (1.2-3.4) Monocytes # (Auto) 0.59 K/uL (0.11-0.59) Eosinophils # (Auto) 0.22 K/uL (0-0.5) Basophils # (Auto) 0.02 K/uL (0-0.2) RDW Standard Deviation 45.1 fL (36.4-46.3) RDW Coefficient of Variation 16.0 % (11.5-14.5) Immature Granulocyte % (Auto) 0.2 % Immature Granulocyte # (Auto) 0.01 K/uL (0.00-0.02) Prothrombin Time 12.4 SECONDS (9.0-12.0) Prothromb Time International Ratio 1.2 (0.9-1.1) Anion Gap 9.0 mmol/L (3-11) Est Creatinine Clear Calc Drug Dose 86.5 ml/min Estimated GFR () 102.9 Estimated GFR (Non- 88.8 BUN/Creatinine Ratio 15.7 (10-20) Calcium Level 8.2 mg/dl (8.5-10.1) Triglycerides Level 126 mg/dl (0-150) Cholesterol Level 139 mg/dl (0-200) HDL Cholesterol 50 mg/dl LDL Cholesterol, Calculated 64 mg/dl VLDL Cholesterol, Calculated 25 mg/dl Cholesterol/HDL Ratio 2.8 Imaging MRI OF THE BRAIN COMBO CLINICAL HISTORY: Strokelike symptoms. COMPARISON STUDY: CT of the brain dated 03/29/2016. MRI of the brain dated 02/22/2015. TECHNIQUE: MRI of the brain was performed utilizing various T1 and T2-weighted sequences in the axial, sagittal, and coronal planes. Contrast-enhanced sequences were acquired following the administration of 20 cc of Magnevist. The examination is significantly degraded by motion artifact. The postcontrast images are of limited utility. FINDINGS: Brain parenchyma: There are age-related involutional changes noting moderate confluent subcortical and periventricular microangiopathic disease. Left cerebellar encephalomalacia is unchanged. There is no hemorrhage or mass effect. There is no restricted diffusion to suggest acute ischemia. No enhancing mass lesion is identified on the postcontrast images. Thinning of the corpus callosum is similar to previous. Wilcox-white matter differentiation is preserved. No extra-axial fluid collection is seen. The cerebellar tonsils are normal in configuration. Ventricles, sulci, and cisterns: Prominent secondary to involutional change. Pituitary and sella: Unremarkable. Intracranial vasculature: Normal flow voids are maintained at the skull base. Orbits: The bony orbits are grossly intact. Deformity of the left globe is unchanged from previous. The right orbital contents are normal as imaged. Sinuses and mastoids: Clear. Calvarium: Unremarkable. Cervical cord: Partially visualized cervical spinal cord is normal in morphology and signal intensity. IMPRESSION: 1. Motion degraded examination. 2. There is no hemorrhage, mass effect, or evidence of acute ischemia. 3. Chronic findings as above. There has been no significant change from the 02/22/2015 examination. Electronically signed by: Iglesia Morgan M.D. 03/30/2016 7:19 AM Dictated Date/Time: 03/30/2016 7:15 AM Impression 1. Events of March 29 are noted and a transient ischemic attack involving the right hemisphere is possible. The patient had some fluctuating symptomatology in the left side as noted above , given TPA, and symptoms resolved. Currently, the patient has an NIH stroke scale of 0 and has no focal neurologic signs, meningeal signs, or encephalopathy. 2. Risk factors for stroke including dyslipidemia, diabetes, and hypertension which was discovered on admission yesterday. 3. Complex partial seizure disorder since teenager years. She is fairly well controlled on current doses of Dilantin and Keppra. Dilantin level was mid therapeutic. 4 chronic cerebral ischemia with history of old CVA and TIA in the past. 5. 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 This is an old issue.. Plan 1. Continue with post-TPA protocol. 2. I would consider adding an 81 mg aspirin tablet daily, assuming no other contraindication, for further CVA/TIA prevention. I do not see that the patient has been on any antiplatelet medication. 3. Continue Dilantin 200 mg twice a day and Keppra 750 mg twice a day for seizure prevention. 4. Increase activity as able. I spoke at length regarding this case including differential diagnosis and treatment options with Dr. Rojo and Iglesia Jama PA-C.
--- NOTE | 2016-03-30 09:52 | Progress Note ---
Medicine Progress Note Date & Time of Visit: Mar 30, 2016 at 09:51. Subjective states she feels fine overall no weakness/numbness or any other focal deficits denies headache, dizziness, nausea, chest pain no other symptoms Objective Last 8 Hrs Date Time Temp Pulse Resp B/P Pulse Ox O2 Delivery O2 Flow Rate FiO2 03/30/16 06:19 75 16 129/59 95 Room Air 03/30/16 05:19 74 17 130/79 93 Room Air 03/30/16 04:19 76 17 125/70 95 Room Air 03/30/16 04:00 96 Room Air 03/30/16 03:19 76 17 119/65 93 Room Air 03/30/16 02:19 37.2 76 19 119/73 93 Room Air Physical Exam: General- oriented x 3, not in distress Head- atraumatic Eye EOMI, anicteric ENT- oropharynx clear Neck- supple, no JVD, no adenopathy, Lungs- clear to auscultation b/l Heart- normal rate, regular rhythm; no murmurs Abdomen- normal bowel sounds, soft, nontender Extremities- no pretibial edema, no calf tenderness Neuro- alert, oriented x 3; PERRL, EOMI; no facial palsy; no dysarthria; motor 5 /5 bilaterally;sensation 100% Skin- warm & dry Laboratory Results: Last 24 Hours Test 03/29/16 16:21 03/29/16 16:26 03/29/16 16:27 03/29/16 18:00 Bedside Glucose 104 mg/dl Bedside Hemoglobin 11.9 g/dl Bedside Hematocrit 35 % Bedside Sodium 141 mEq/L Bedside Potassium 4.3 mEq/L Bedside Chloride 102 mEq/L Bedside Total CO2 26 mEq/l Anion Gap 19.0 mmol/L 7.0 mmol/L Bedside Blood Urea Nitrogen 11 mg/dl Bedside Creatinine 0.7 mg/dl Bedside Glucose (other) 120 mg/dl Bedside Ionized Calcium (Jerzy) 1.13 mmol/l White Blood Count 7.31 K/uL Red Blood Count 4.41 M/uL Hemoglobin 10.9 g/dL Hematocrit 34.6 % Mean Corpuscular Volume 78.5 fL Mean Corpuscular Hemoglobin 24.7 pg Mean Corpuscular Hemoglobin Concent 31.5 g/dl Platelet Count 196 K/uL Mean Platelet Volume 9.9 fL Neutrophils (%) (Auto) 75.8 % Lymphocytes (%) (Auto) 15.7 % Monocytes (%) (Auto) 5.9 % Eosinophils (%) (Auto) 1.8 % Basophils (%) (Auto) 0.5 % Neutrophils # (Auto) 5.54 K/uL Lymphocytes # (Auto) 1.15 K/uL Monocytes # (Auto) 0.43 K/uL Eosinophils # (Auto) 0.13 K/uL Basophils # (Auto) 0.04 K/uL RDW Standard Deviation 45.7 fL RDW Coefficient of Variation 15.9 % Immature Granulocyte % (Auto) 0.3 % Immature Granulocyte # (Auto) 0.02 K/uL Prothrombin Time 10.8 SECONDS Prothromb Time International Ratio 1.0 Activated Partial Thromboplast Time 25.0 SECONDS Partial Thromboplastin Ratio 1.0 Sodium Level 139 mmol/L Potassium Level 4.2 mmol/L Chloride Level 104 mmol/L Carbon Dioxide Level 28 mmol/L Blood Urea Nitrogen 11 mg/dl Creatinine 0.82 mg/dl Est Creatinine Clear Calc Drug Dose 75.1 ml/min Estimated GFR () 84.6 Estimated GFR (Non- 73.0 BUN/Creatinine Ratio 13.3 Random Glucose 114 mg/dl Estimated Average Glucose 123 mg/dl Hemoglobin A1c 5.9 % Calcium Level 8.8 mg/dl Total Bilirubin 0.3 mg/dl Direct Bilirubin < 0.1 mg/dl Aspartate Amino Transf (AST/SGOT) 30 U/L Alanine Aminotransferase (ALT/SGPT) 24 U/L Alkaline Phosphatase 126 U/L Total Creatine Kinase 82 U/L Creatine Kinase MB 1.2 ng/ml Creatine Kinase MB Ratio 1.5 Troponin I < 0.015 ng/ml Total Protein 8.2 gm/dl Albumin 3.7 gm/dl Phenytoin (Dilantin) Level 14.8 mcg/mL Urine Color YELLOW Urine Appearance CLEAR Urine pH 8.5 Urine Specific [place] 1.017 Urine Protein TRACE Urine Glucose (UA) NEG Urine Ketones NEG Urine Occult Blood NEG Urine Nitrite NEG Urine Bilirubin NEG Urine Urobilinogen NEG Urine Leukocyte Esterase NEG Urine WBC (Auto) 1-5 /hpf Urine RBC (Auto) 0-4 /hpf Urine Hyaline Casts (Auto) 0 /lpf Urine Epithelial Cells (Auto) 20-30 /lpf Urine Bacteria (Auto) NEG Urine Opiates Screen NEG Urine Methadone, Qualitative NEG Urine Barbiturates NEG Urine Phencyclidine (PCP) Level NEG Ur Amphetamine/Methamphetamine NEG MDMA (Ecstasy) Screen NEG Urine Benzodiazepines Screen NEG Urine Cocaine Metabolite NEG Urine Marijuana (THC) NEG Test 03/29/16 21:01 03/30/16 05:36 Bedside Glucose 115 mg/dl White Blood Count 6.01 K/uL Red Blood Count 3.90 M/uL Hemoglobin 9.5 g/dL Hematocrit 30.5 % Mean Corpuscular Volume 78.2 fL Mean Corpuscular Hemoglobin 24.4 pg Mean Corpuscular Hemoglobin Concent 31.1 g/dl Platelet Count 161 K/uL Mean Platelet Volume 9.8 fL Neutrophils (%) (Auto) 61.5 % Lymphocytes (%) (Auto) 24.5 % Monocytes (%) (Auto) 9.8 % Eosinophils (%) (Auto) 3.7 % Basophils (%) (Auto) 0.3 % Neutrophils # (Auto) 3.70 K/uL Lymphocytes # (Auto) 1.47 K/uL Monocytes # (Auto) 0.59 K/uL Eosinophils # (Auto) 0.22 K/uL Basophils # (Auto) 0.02 K/uL RDW Standard Deviation 45.1 fL RDW Coefficient of Variation 16.0 % Immature Granulocyte % (Auto) 0.2 % Immature Granulocyte # (Auto) 0.01 K/uL Prothrombin Time 12.4 SECONDS Prothromb Time International Ratio 1.2 Sodium Level 143 mmol/L Potassium Level 3.6 mmol/L Chloride Level 108 mmol/L Carbon Dioxide Level 26 mmol/L Anion Gap 9.0 mmol/L Blood Urea Nitrogen 11 mg/dl Creatinine 0.69 mg/dl Est Creatinine Clear Calc Drug Dose 86.5 ml/min Estimated GFR () 102.9 Estimated GFR (Non- 88.8 BUN/Creatinine Ratio 15.7 Random Glucose 88 mg/dl Calcium Level 8.2 mg/dl Triglycerides Level 126 mg/dl Cholesterol Level 139 mg/dl HDL Cholesterol 50 mg/dl LDL Cholesterol, Calculated 64 mg/dl VLDL Cholesterol, Calculated 25 mg/dl Cholesterol/HDL Ratio 2.8 Assessment & Plan POSSIBLE TIA Patient with history of 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 Queen - recommended tPA S/p tPA with resolution of symptoms Check MRI brain, MRA head and neck: unrevealing echo: pending appreciate Dr. Estes's recommendations No antiplatelet or anticoagulant for [address] head at 1800, if no hemorrhage, will start Aspirin Continue statin IVF's at 100 mL/hour PT, OT, speech evals Neuro checks HYPERTENSION Hold metoprolol for permissive HTN DM TYPE 2 Not on medication Insulin sliding scale Check A1c: 5.9 SEIZURE DISORDER Denies recent seizure activity Continue Dilantin and Keppra ? HX CAD Pt/ not aware Per records had NSTEMI in 12/2014 Echo 02/2015 showed hyperdynamic LV function and class 1 diastolic dysfunction No intervention done as per patient/ COPD Not in acute exacerbation Continue home inhalers and Singulair DYSLIPIDEMIA Continue statin GERD Continue PPI FULL CODE per my discussion with the patient DVT PROPHYLAXIS SCD's Disposition pending Current Inpatient Medications: Current Inpatient Medications Medications (Trade) Dose Ordered Sig/Mabel Route Start Time Stop Time Status Last Admin Dose Admin Acetaminophen (Tylenol Tab) 650 mg Q4H PRN PO 03/29/16 18:15 04/28/16 18:14 03/30/16 04:25 650 MG Ondansetron HCl (Zofran Inj) 4 mg Q6H PRN IV 03/29/16 18:15 04/28/16 18:14 Miscellaneous Information (Pharmacist Discharge Med Rec Consult) 1 ea UD PRN N/A 03/29/16 18:30 04/28/16 18:29 Albuterol (Ventolin Hfa Inhaler) 2 puffs BID INH 03/29/16 21:00 04/28/16 20:59 03/29/16 21:00 2 PUFFS Atorvastatin Calcium (Lipitor Tab) 40 mg DAILY PO 03/30/16 09:00 04/29/16 08:59 Miscellaneous Information (Order Awaiting Action) 1 ea QS N/A 03/30/16 08:00 04/29/16 07:59 Salmeterol Xinafoate/ Fluticasone (Advair Diskus 500/50 Inh) 1 puff BID INH 03/29/16 21:00 04/28/16 20:59 03/29/16 21:10 1 PUFF Levetiracetam (Keppra Tab) 750 mg BID PO 03/29/16 21:00 04/28/16 20:59 03/29/16 21:08 750 MG Montelukast Sodium (Singulair Tab) 10 mg QPM PO 03/30/16 21:00 04/29/16 20:59 Phenytoin Sodium (Dilantin Er Cap) 200 mg BID PO 03/29/16 21:00 04/28/16 20:59 03/29/16 21:09 200 MG Meclizine HCl (Antivert Tab) 12.5 mg TID PRN PO 03/29/16 18:45 04/28/16 18:44 Pantoprazole Sodium (Protonix Tab) 40 mg QAM PO 03/30/16 09:00 04/29/16 08:59 Insulin Aspart (novoLOG ASPART) SLIDING SCALE If C... ACHS SC 03/29/16 21:00 04/28/16 20:59 Glucose (Glucose 40% Gel) 15-30 GRAMS 15 GRAMS... UD PRN PO 03/29/16 18:45 04/28/16 18:44 Glucose (Glucose Chew Tab) 4-8 Tablets 4 Tabl... UD PRN PO 03/29/16 18:45 04/28/16 18:44 Dextrose (Dextrose 50% 50ML Syringe) 25-50ML OF 50% DW IV FOR... UD PRN IV 03/29/16 18:45 04/28/16 18:44 Glucagon 1 mg 1 mg UD PRN SQ 03/29/16 18:45 04/28/16 18:44 Sodium Chloride (Nss 1000ml) 1,000 ml @ 100 mls/hr Q10H IV 03/29/16 18:45 04/28/16 18:44 03/30/16 04:43 100 MLS/HR Clonidine HCl (Catapres Tab) 0.1 mg Q6H PRN PO 03/29/16 22:15 04/28/16 22:14 Gadopentetate Dimeglumine (Magnevist) 20 ml UD PRN IV 03/30/16 02:15 04/03/16 02:14
[2016-03-30] MEDS: PHENYTOIN SODIUM ER 100 MG CAP PO SCH ×2 (09:57→21:17)
[2016-03-30] MEDS: ATORVASTATIN 40 MG TAB PO SCH (09:57)
[2016-03-30] MEDS: LEVETIRACETAM 250 MG TAB PO SCH ×2 (09:57→21:17)
[2016-03-30] MEDS: FLUTICASONE/SALMETEROL (ADVAIR) 500/50 INH 14 PUFF INH SCH ×2 (09:58→21:17)
[2016-03-30] MEDS: ALBUTEROL HFA 8 GM INHALER INH SCH ×2 (09:58→21:17)
[2016-03-30] MEDS: PANTOprazole SOD 40 MG TAB PO SCH (09:58)
--- NOTE | 2016-03-30 11:21 | ECHOCARDIOGRAM REPORT ---
*NOTICE TO RECEIVING [employer] This information is strictly Confidential and protected under [place] law. [place] law prohibits you from making any further disclosure of this information unless further disclosure is expressly permitted by the written consent of the person to whom it pertains or is authorized by law. A general authorization for the release of medical or other information is not sufficient for this purpose. Hospital accepts no responsibility if the information is made available to any other person, INCLUDING THE PATIENT. Interpretation Summary * Name: JAMES BILLINGS Study Date: 03/30/2016 08:25 AM BP: 129/59 mmHg * Patient Location: .[facility]ICU\S\E109\S\1 HR: 75 * : 1945 (M/d/yyyy) Gender: Female Height: 62 in * Age: 70 yrs Ethnicity: [place] Weight: 231 lb * Ordering Physician: Jill Knox * Referring Physician: Self, Referred * Performed By: Shira Coats RDCS * * Reason For Study: Stroke * BSA: 2.0 m2 * -- Conclusions -- * Normal LV chamber size with mild concentric LVH. * Normal LV systolic function, EF 60-65%. * No segmental left ventricular wall motion abnormalities are noted. * Grade I diastolic dysfunction. * Aortic valve sclerosis mild, without significant aortic valvular stenosis. Procedure Details * A complete two-dimensional transthoracic echocardiogram was performed (2D, M-mode, Doppler and color flow Doppler). * Due to prior negative microcavitation study in 2014, microcavitation study not performed for this study. Left Ventricle * The left ventricle is normal in size. * There is mild concentric left ventricular hypertrophy. * Ejection Fraction = 60-65%. * Left ventricular systolic function is normal. * No segmental left ventricular wall motion abnormalities are noted. * The left ventricular wall motion is normal. Right Ventricle * The right ventricular cavity size is normal (basal dimension <4.2 cm in right ventricular apical 4-chamber view). * The right ventricular systolic function is normal as assessed by tricuspid annular plane systolic excursion (TAPSE) (normal >1.5 cm). Atria * The left atrial size is normal. * Right atrial size is normal. * No ASD detected; PFO is not assessed. Mitral Valve * The mitral valve is normal in structure and function. Tricuspid Valve * The tricuspid valve is normal in structure and function. Aortic Valve * The aortic valve is trileaflet. * Aortic valve sclerosis mild, without significant aortic valvular stenosis. * There is no significant aortic regurgitation. Pulmonic Valve * The pulmonary valve is not well seen, but the Doppler examination is normal without significant regurgitation or stenosis. Great Vessels * The aortic root is normal size. Pericardium/Pleural * There is no pericardial effusion. Left Ventricular Diastolic Function * Grade I diastolic dysfunction, (abnormal relaxation pattern). MMode 2D Measurements and Calculations IVSd 1.2 cm IVSs 1.2 cm LVIDd 4.4 cm LVIDs 2.7 cm LVPWd 1.1 cm LVPWs 1.6 cm IVS/LVPW 1.1 FS 37.6 % EDV(Teich) 87.7 ml ESV(Teich) 28.2 ml EF(Teich) 67.9 % EDV(cubed) 85.2 ml ESV(cubed) 20.7 ml EF(cubed) 75.7 % % IVS thick 1.0 % % LVPW thick 46.7 % LV mass(C)d 175.4 grams LV mass(C)dI 86.3 grams/m\S\2 LV mass(C)s 123.2 grams LV mass(C)sI 60.6 grams/m\S\2 SV(Teich) 59.6 ml SI(Teich) 29.3 ml/m\S\2 SV(cubed) 64.5 ml SI(cubed) 31.7 ml/m\S\2 Ao root diam 2.4 cm Ao root area 4.6 cm\S\2 ACS 1.6 cm LA dimension 3.2 cm LA/Ao 1.3 LVOT diam 1.7 cm LVOT area 2.2 cm\S\2 LVAd ap4 27.8 cm\S\2 LVLd ap4 7.5 cm EDV(MOD-sp4) 88.3 ml EDV(sp4-el) 88.0 ml LVAs ap4 15.2 cm\S\2 LVLs ap4 6.3 cm ESV(MOD-sp4) 32.4 ml ESV(sp4-el) 30.9 ml EF(MOD-sp4) 63.3 % EF(sp4-el) 64.9 % LVAd ap2 33.7 cm\S\2 LVLd ap2 8.3 cm EDV(MOD-sp2) 115.9 ml EDV(sp2-el) 115.6 ml LVAs ap2 17.8 cm\S\2 LVLs ap2 6.7 cm ESV(MOD-sp2) 42.0 ml ESV(sp2-el) 39.9 ml EF(MOD-sp2) 63.7 % EF(sp2-el) 65.4 % LVLd %diff 10.2 % EDV(MOD-bp) 106.8 ml LVLs %diff 6.1 % ESV(MOD-bp) 37.3 ml EF(MOD-bp) 65.1 % SV(MOD-sp4) 55.9 ml SI(MOD-sp4) 27.5 ml/m\S\2 SV(MOD-sp2) 73.8 ml SI(MOD-sp2) 36.3 ml/m\S\2 SV(MOD-bp) 69.5 ml SI(MOD-bp) 34.2 ml/m\S\2 SV(sp4-el) 57.1 ml SI(sp4-el) 28.1 ml/m\S\2 SV(sp2-el) 75.6 ml SI(sp2-el) 37.2 ml/m\S\2 Doppler Measurements and Calculations MV E max justen 104.2 cm/sec MV A max justen 111.9 cm/sec MV E/A 0.93 MV dec time 0.28 sec Ao V2 max 222.1 cm/sec Ao max PG 19.7 mmHg Ao max PG (full) 11.3 mmHg Ao V2 mean 137.6 cm/sec Ao mean PG 8.8 mmHg Ao mean PG (full) 5.1 mmHg Ao V2 VTI 42.4 cm ESTELA(I,A) 1.6 cm\S\2 ESTELA(I,D) 1.6 cm\S\2 ESTELA(V,A) 1.4 cm\S\2 ESTELA(V,D) 1.4 cm\S\2 AI max justen 198.7 cm/sec AI max PG 15.8 mmHg AI dec slope 196.5 cm/sec\S\2 AI P1/2t 296.2 msec LV V1 max PG 8.4 mmHg LV V1 mean PG 3.7 mmHg LV V1 max 145.3 cm/sec LV V1 mean 89.0 cm/sec LV V1 VTI 30.4 cm SV(Ao) 194.6 ml SI(Ao) 95.7 ml/m\S\2 SV(LVOT) 66.6 ml SI(LVOT) 32.8 ml/m\S\2 PA V2 max 151.4 cm/sec PA max PG 9.2 mmHg
--- NOTE | 2016-03-30 15:00 | Critical Care Progress Note ---
Critical Care Progress Note Date of Service Mar 30, 2016. Attending Dr. Rojo Subjective This is a 70-year-old female admitted yesterday for possible stroke. She received TPA at 1644 and was transferred to the intensive care unit in room 109. Overnight she had no events. This morning, she was seen by from neurology and was assessed with an NIH score of "0". She continues to have no evidence of acute neurological change. She has no headache this morning. She has no known arrhythmia. She is no change in her acute vision. Paresthesia is absent per report. She has no acute findings. Objective Vital Signs - as noted Laboratory Data - as noted Physical Exam: General - NAD Eyes - PERRL, No icterus, gaze conjugate. Left occlusive cataract. No reaction to left pupil ENT - Mucosa moist, no lesions or candidiasis. Poor dental caries with majority of teeth absent Neck - Supple, trachea midline, no masses or lymphadenopathy, no JVD or bruits Lungs - No paradoxical chest wall movement, clear to auscultation bilaterally, no wheezes, rales, or rhonchi Heart - Reg rate and rhythm, normal S1S2, No murmur, rubs, clicks, or gallops appreciated Abdomen - normoactive BS present, no bruits noted, tympanic to percussion, soft , nontender, nondistended, no organomegaly Extremities - No edema, pedal pulses intact Neuro - A&OX3 neg pronator drift Strength extremities equal and appropriate bilaterally Cerebellum: Finger to nose appropriate Assessment & Plan (1) CVA (cerebral vascular accident) CT Head with no evidence of acute abnormality - repeat imaging this morning Negative [place] with [facility] [place]pA administered at 1644 Symptoms have abated post TpA Continue neuro checks per protocol Neuro consult with Dr. Estes: NIH "0" No change in tx Follow post-TpA protocol (2) Cataract Patient is aware of possible treatment No interest in eye surgery PT/OT to check for imbalance and function (3) Diabetes HgBA1c 5.9 Random glucose 88-115 AHA, diabetic diet Novolog sliding scale insulin Continue Home regimen- well controlled per HgBA1C (4) Hypercholesteremia Fasting Lipids WNL Continue Atorvastatin (5) Seizure disorder Continue home dose of Keppra and Dilantin per Dr. Estes No indication for EEG this admission Phenytoin level 14.8 Continue Seizure precautions (6) Hx of non-ST elevation myocardial infarction (NSTEMI) Patient denies any history of CAD Monitor on telemetry Request outpatient records Not on an ACEI Home meds include Lopressor 25mg PO BID Consider Ravi inhibitor secondary to known DM (7) Asthma Continues with faint expiratory wheezes on exam Patient unaware of she has had PFTs Continue bronchodilators and leukotriene inhibitor Continue Advair diskus 500/50 Oxygenation adequate on room air Pt reports to be at baseline (8) GERD (gastroesophageal reflux disease) Prilosec at home Continue Pantoprazole while inpatient (9) Need for intravenous access Peripheral IV in place No indication for central line at this time (10) DVT prophylaxis TpA administered 03/29/16 at 1644 No further chemical prophylaxis at this time TEDs/SCDs Increase ambulation as tolerated Agree with transfer from ICU after TpA protocol complete CCT: 0 minutes, level 2 inpatient bill; Not including any billable procedures. Thank you for involving us in the care of this patient. Please review 's addendum for further recommendations. I have personally evaluated and examined this patient. I agree with assessment and plan of Deloris Mas PA-C. Critical care needs resolved, stable for transfer Consults & Procedures Consultants: Neuro: Dr. Estes Data Medications: Current Inpatient Medications Medications (Trade) Dose Ordered Sig/Mabel Route Start Time Stop Time Status Last Admin Dose Admin Acetaminophen (Tylenol Tab) 650 mg Q4H PRN PO 03/29/16 18:15 04/28/16 18:14 03/30/16 04:25 650 MG Ondansetron HCl (Zofran Inj) 4 mg Q6H PRN IV 03/29/16 18:15 04/28/16 18:14 Miscellaneous Information (Pharmacist Discharge Med Rec Consult) 1 ea UD PRN N/A 03/29/16 18:30 04/28/16 18:29 Albuterol (Ventolin Hfa Inhaler) 2 puffs BID INH 03/29/16 21:00 04/28/16 20:59 03/30/16 09:58 2 PUFFS Atorvastatin Calcium (Lipitor Tab) 40 mg DAILY PO 03/30/16 09:00 04/29/16 08:59 03/30/16 09:57 40 MG Miscellaneous Information (Order Awaiting Action) 1 ea QS N/A 03/30/16 08:00 04/29/16 07:59 Salmeterol Xinafoate/ Fluticasone (Advair Diskus 500/50 Inh) 1 puff BID INH 03/29/16 21:00 04/28/16 20:59 03/30/16 09:58 1 PUFF Levetiracetam (Keppra Tab) 750 mg BID PO 03/29/16 21:00 04/28/16 20:59 03/30/16 09:57 750 MG Montelukast Sodium (Singulair Tab) 10 mg QPM PO 03/30/16 21:00 04/29/16 20:59 Phenytoin Sodium (Dilantin Er Cap) 200 mg BID PO 03/29/16 21:00 04/28/16 20:59 03/30/16 09:57 200 MG Meclizine HCl (Antivert Tab) 12.5 mg TID PRN PO 03/29/16 18:45 04/28/16 18:44 Pantoprazole Sodium (Protonix Tab) 40 mg QAM PO 03/30/16 09:00 04/29/16 08:59 03/30/16 09:58 40 MG Insulin Aspart (novoLOG ASPART) SLIDING SCALE If C... ACHS SC 03/29/16 21:00 04/28/16 20:59 Glucose (Glucose 40% Gel) 15-30 GRAMS 15 GRAMS... UD PRN PO 03/29/16 18:45 04/28/16 18:44 Glucose (Glucose Chew Tab) 4-8 Tablets 4 Tabl... UD PRN PO 03/29/16 18:45 04/28/16 18:44 Dextrose (Dextrose 50% 50ML Syringe) 25-50ML OF 50% DW IV FOR... UD PRN IV 03/29/16 18:45 04/28/16 18:44 Glucagon 1 mg 1 mg UD PRN SQ 03/29/16 18:45 04/28/16 18:44 Sodium Chloride (Nss 1000ml) 1,000 ml @ 100 mls/hr Q10H IV 03/29/16 18:45 04/28/16 18:44 03/30/16 04:43 100 MLS/HR Clonidine HCl (Catapres Tab) 0.1 mg Q6H PRN PO 03/29/16 22:15 04/28/16 22:14 Gadopentetate Dimeglumine (Magnevist) 20 ml UD PRN IV 03/30/16 02:15 04/03/16 02:14 I & O: 24-Hour Column 03/30/16 08:00 Intake Total 935 ml Output Total 850 ml Balance 85 ml Vital Signs: Date Time Temp Pulse Resp B/P Pulse Ox O2 Delivery O2 Flow Rate FiO2 03/30/16 13:00 75 18 128/69 93 Room Air 03/30/16 12:00 37.0 94 18 143/99 96 Room Air 03/30/16 12:00 96 Room Air 03/30/16 11:00 72 22 114/88 97 Room Air 03/30/16 10:00 77 22 122/92 97 Room Air 03/30/16 09:00 72 17 148/96 96 Room Air 03/30/16 08:00 36.6 83 22 127/70 96 Room Air 03/30/16 08:00 94 Room Air 03/30/16 07:00 36.9 77 14 120/65 94 Room Air 03/30/16 06:19 75 16 129/59 95 Room Air 03/30/16 05:19 74 17 130/79 93 Room Air 03/30/16 04:19 76 17 125/70 95 Room Air 03/30/16 04:00 96 Room Air 03/30/16 03:19 76 17 119/65 93 Room Air 03/30/16 02:19 37.2 76 19 119/73 93 Room Air 03/30/16 01:51 87 16 141/87 96 Room Air 03/30/16 00:15 85 16 122/71 95 Room Air 03/30/16 00:00 96 Room Air 03/29/16 23:49 38.0 79 18 122/71 95 Room Air 03/29/16 23:19 82 19 120/60 92 Room Air 03/29/16 22:49 37.6 84 17 121/67 94 Room Air 03/29/16 22:19 84 19 117/63 96 Room Air 03/29/16 21:49 84 17 129/77 95 Room Air 03/29/16 21:19 90 18 136/74 94 Room Air 03/29/16 20:49 37.9 85 16 137/68 93 Room Air 03/29/16 20:30 81 18 142/73 95 Room Air 03/29/16 20:00 37.9 80 20 120/78 94 Room Air 03/29/16 19:45 37.9 91 16 149/61 94 Room Air 03/29/16 19:34 81 18 141/77 98 Room Air 03/29/16 19:01 77 18 146/59 97 03/29/16 18:45 78 20 145/57 98 Room Air 03/29/16 18:30 78 20 153/87 93 Room Air 03/29/16 18:15 75 18 158/138 98 Room Air 03/29/16 18:00 75 22 128/58 98 Room Air 03/29/16 17:43 80 18 132/89 95 Room Air 03/29/16 17:30 77 16 133/60 98 03/29/16 17:15 81 18 136/103 98 Room Air 03/29/16 17:09 82 20 152/69 93 Room Air 03/29/16 17:00 82 152/69 93 Room Air 03/29/16 16:48 83 20 121/81 97 Room Air 03/29/16 16:22 88 03/29/16 16:10 37.2 85 22 156/107 97 Room Air 03/29/16 16:10 96 Room Air Laboratory Results: Last 24 Hours Test 03/29/16 16:21 03/29/16 16:26 03/29/16 16:27 03/29/16 18:00 Bedside Glucose 104 mg/dl Bedside Hemoglobin 11.9 g/dl Bedside Hematocrit 35 % Bedside Sodium 141 mEq/L Bedside Potassium 4.3 mEq/L Bedside Chloride 102 mEq/L Bedside Total CO2 26 mEq/l Anion Gap 19.0 mmol/L 7.0 mmol/L Bedside Blood Urea Nitrogen 11 mg/dl Bedside Creatinine 0.7 mg/dl Bedside Glucose (other) 120 mg/dl Bedside Ionized Calcium (Jerzy) 1.13 mmol/l White Blood Count 7.31 K/uL Red Blood Count 4.41 M/uL Hemoglobin 10.9 g/dL Hematocrit 34.6 % Mean Corpuscular Volume 78.5 fL Mean Corpuscular Hemoglobin 24.7 pg Mean Corpuscular Hemoglobin Concent 31.5 g/dl Platelet Count 196 K/uL Mean Platelet Volume 9.9 fL Neutrophils (%) (Auto) 75.8 % Lymphocytes (%) (Auto) 15.7 % Monocytes (%) (Auto) 5.9 % Eosinophils (%) (Auto) 1.8 % Basophils (%) (Auto) 0.5 % Neutrophils # (Auto) 5.54 K/uL Lymphocytes # (Auto) 1.15 K/uL Monocytes # (Auto) 0.43 K/uL Eosinophils # (Auto) 0.13 K/uL Basophils # (Auto) 0.04 K/uL RDW Standard Deviation 45.7 fL RDW Coefficient of Variation 15.9 % Immature Granulocyte % (Auto) 0.3 % Immature Granulocyte # (Auto) 0.02 K/uL Prothrombin Time 10.8 SECONDS Prothromb Time International Ratio 1.0 Activated Partial Thromboplast Time 25.0 SECONDS Partial Thromboplastin Ratio 1.0 Sodium Level 139 mmol/L Potassium Level 4.2 mmol/L Chloride Level 104 mmol/L Carbon Dioxide Level 28 mmol/L Blood Urea Nitrogen 11 mg/dl Creatinine 0.82 mg/dl Est Creatinine Clear Calc Drug Dose 75.1 ml/min Estimated GFR () 84.6 Estimated GFR (Non- 73.0 BUN/Creatinine Ratio 13.3 Random Glucose 114 mg/dl Estimated Average Glucose 123 mg/dl Hemoglobin A1c 5.9 % Calcium Level 8.8 mg/dl Total Bilirubin 0.3 mg/dl Direct Bilirubin < 0.1 mg/dl Aspartate Amino Transf (AST/SGOT) 30 U/L Alanine Aminotransferase (ALT/SGPT) 24 U/L Alkaline Phosphatase 126 U/L Total Creatine Kinase 82 U/L Creatine Kinase MB 1.2 ng/ml Creatine Kinase MB Ratio 1.5 Troponin I < 0.015 ng/ml Total Protein 8.2 gm/dl Albumin 3.7 gm/dl Phenytoin (Dilantin) Level 14.8 mcg/mL Urine Color YELLOW Urine Appearance CLEAR Urine pH 8.5 Urine Specific [place] 1.017 Urine Protein TRACE Urine Glucose (UA) NEG Urine Ketones NEG Urine Occult Blood NEG Urine Nitrite NEG Urine Bilirubin NEG Urine Urobilinogen NEG Urine Leukocyte Esterase NEG Urine WBC (Auto) 1-5 /hpf Urine RBC (Auto) 0-4 /hpf Urine Hyaline Casts (Auto) 0 /lpf Urine Epithelial Cells (Auto) 20-30 /lpf Urine Bacteria (Auto) NEG Urine Opiates Screen NEG Urine Methadone, Qualitative NEG Urine Barbiturates NEG Urine Phencyclidine (PCP) Level NEG Ur Amphetamine/Methamphetamine NEG MDMA (Ecstasy) Screen NEG Urine Benzodiazepines Screen NEG Urine Cocaine Metabolite NEG Urine Marijuana (THC) NEG Test 03/29/16 21:01 03/30/16 05:36 Bedside Glucose 115 mg/dl White Blood Count 6.01 K/uL Red Blood Count 3.90 M/uL Hemoglobin 9.5 g/dL Hematocrit 30.5 % Mean Corpuscular Volume 78.2 fL Mean Corpuscular Hemoglobin 24.4 pg Mean Corpuscular Hemoglobin Concent 31.1 g/dl Platelet Count 161 K/uL Mean Platelet Volume 9.8 fL Neutrophils (%) (Auto) 61.5 % Lymphocytes (%) (Auto) 24.5 % Monocytes (%) (Auto) 9.8 % Eosinophils (%) (Auto) 3.7 % Basophils (%) (Auto) 0.3 % Neutrophils # (Auto) 3.70 K/uL Lymphocytes # (Auto) 1.47 K/uL Monocytes # (Auto) 0.59 K/uL Eosinophils # (Auto) 0.22 K/uL Basophils # (Auto) 0.02 K/uL RDW Standard Deviation 45.1 fL RDW Coefficient of Variation 16.0 % Immature Granulocyte % (Auto) 0.2 % Immature Granulocyte # (Auto) 0.01 K/uL Prothrombin Time 12.4 SECONDS Prothromb Time International Ratio 1.2 Sodium Level 143 mmol/L Potassium Level 3.6 mmol/L Chloride Level 108 mmol/L Carbon Dioxide Level 26 mmol/L Anion Gap 9.0 mmol/L Blood Urea Nitrogen 11 mg/dl Creatinine 0.69 mg/dl Est Creatinine Clear Calc Drug Dose 86.5 ml/min Estimated GFR () 102.9 Estimated GFR (Non- 88.8 BUN/Creatinine Ratio 15.7 Random Glucose 88 mg/dl Calcium Level 8.2 mg/dl Triglycerides Level 126 mg/dl Cholesterol Level 139 mg/dl HDL Cholesterol 50 mg/dl LDL Cholesterol, Calculated 64 mg/dl VLDL Cholesterol, Calculated 25 mg/dl Cholesterol/HDL Ratio 2.8
--- NOTE | 2016-03-30 20:33 | DIAGNOSTIC IMAGING REPORT ---
CT OF THE HEAD WITHOUT CONTRAST CLINICAL HISTORY: S/P t-PA for Stroke. Evaluate hemorrhage COMPARISON STUDY: Head CT March 29, 2016 and MRI of the brain March 30, 2016. CT DOSE: 906.34 mGycm TECHNIQUE: Helical axial images of the head were obtained without IV contrast. Automated exposure control was utilized for the study. FINDINGS: No acute intracranial renal hemorrhage, midline shift or mass effect is present. Ventricular system is stable. The basilar cisterns are patent. There are no extra-axial collections. White matter hypodensities are unchanged. There are no CT findings to suggest acute dural sinus thrombosis or acute territorial infarct. Left globe deformity is chronic. There is no calvarial fracture. Visualized portions of the sinuses and the mastoid air cells are clear. IMPRESSION: No acute intracranial findings. Electronically signed by: Monster Smith M.D. 03/30/2016 8:31 PM Dictated Date/Time: 03/30/2016 8:29 PM
[2016-03-30] MEDS: MONTELUKAST SOD 10 MG TAB PO SCH (21:18)
[2016-03-31] VITALS (7 sets, daily range): BP systolic 116–191; BP diastolic 71–88; PULSE 70–86; TEMP 36.4–37.2; O2SAT 93–96
[2016-03-31] MEDS: [UNRECOGNIZED DRUG - OTHER] SCH ×4 (00:35→22:55)
[2016-03-31] MEDS: SODIUM CHLORIDE 0.9% 1000ML 1,000 ML IV SCH ×2 (00:36→10:26)
[2016-03-31 06:12] LABS: BASO % 0.6 %; BASO ABS # 0.03 K/uL (0-0.2); COMPLETE YES; EOS % 4.1 %; IG% 0.4 %; LYMPH % 28.3 %; LYMPH ABS # 1.44 K/uL (1.2-3.4); MEAN CELL VOLUME 78.7 fL (80-100); MEAN CORPUSCULAR HEMOGLOBIN 24.9 pg (25-34); MEAN CORPUSCULAR HGB CONC 31.6 g/dl (32-36); MEAN PLATELET VOLUME 9.5 fL (7.4-10.4); MONO % 9.2 %; NEUT % 57.4 %; PLATELET COUNT 152 K/uL (130-400); RED BLOOD COUNT 3.94 M/uL (4.2-5.4); WHITE BLOOD COUNT 5.09 K/uL (4.8-10.8)
[2016-03-31 06:20] LABS: INR 1.1 (0.9-1.1); PROTHROMBIN TIME (PATIENT) 11.6 SECONDS (9.0-12.0)
[2016-03-31 06:39] LABS: BUN/CREATININE RATIO 12.9 (10-20); CALCIUM 8.6 mg/dl (8.5-10.1); CREATININE 0.73 mg/dl (0.60-1.20); POTASSIUM 3.9 mmol/L (3.5-5.1)
[2016-03-31] MEDS: FLUTICASONE/SALMETEROL (ADVAIR) 500/50 INH 14 PUFF INH SCH ×2 (08:27→20:35)
[2016-03-31] MEDS: PHENYTOIN SODIUM ER 100 MG CAP PO SCH ×2 (08:28→20:35)
[2016-03-31] MEDS: ALBUTEROL HFA 8 GM INHALER INH SCH ×2 (08:28→20:35)
[2016-03-31] MEDS: PANTOprazole SOD 40 MG TAB PO SCH (08:28)
[2016-03-31] MEDS: ATORVASTATIN 40 MG TAB PO SCH (08:28)
[2016-03-31] MEDS: LEVETIRACETAM 250 MG TAB PO SCH ×2 (08:29→20:35)
[2016-03-31] MEDS: INSULIN ASPART 100 UNITS/ML 3 ML PEN SC SCH ×4 (08:30→21:00)
--- NOTE | 2016-03-31 08:43 | Neurology Progress Notes ---
Neurology Progress Note Date of Service Mar 31, 2016. Subjective The patient feels well with no pain, vision problems, headache, or confusion. She has no new weakness or numbness as before feels improved and back to her baseline. CT scan of the head showed no acute changes Echocardiogram was unremarkable. Laboratory studies were unremarkable as well. Objective Date Time Temp Pulse Resp B/P Pulse Ox O2 Delivery O2 Flow Rate FiO2 03/31/16 07:59 Room Air 03/31/16 07:50 36.9 81 20 124/82 94 Room Air 03/31/16 04:00 36.7 78 20 128/81 96 Room Air 03/31/16 04:00 Room Air 03/31/16 00:00 Room Air 03/31/16 00:00 36.8 70 20 130/78 95 Room Air 03/30/16 22:00 72 16 141/77 90 Room Air 03/30/16 20:00 36.4 75 15 141/72 93 Room Air 03/30/16 20:00 95 Room Air 03/30/16 18:20 79 21 142/84 96 Room Air 03/30/16 18:00 77 22 140/107 95 Room Air 03/30/16 17:00 92 19 137/72 94 Room Air 03/30/16 16:48 85 17 153/85 91 Room Air 03/30/16 16:00 37.2 82 22 161/100 95 Room Air 03/30/16 16:00 95 Room Air 03/30/16 15:00 80 18 171/89 97 Room Air 03/30/16 14:00 76 18 129/70 92 Room Air 03/30/16 13:00 75 18 128/69 93 Room Air 03/30/16 12:00 37.0 94 18 143/99 96 Room Air 03/30/16 12:00 96 Room Air 03/30/16 11:00 72 22 114/88 97 Room Air 03/30/16 10:00 77 22 122/92 97 Room Air 03/30/16 09:00 72 17 148/96 96 Room Air Last 24 Hours Test 03/31/16 05:40 03/31/16 07:30 White Blood Count 5.09 K/uL Red Blood Count 3.94 M/uL Hemoglobin 9.8 g/dL Hematocrit 31.0 % Mean Corpuscular Volume 78.7 fL Mean Corpuscular Hemoglobin 24.9 pg Mean Corpuscular Hemoglobin Concent 31.6 g/dl Platelet Count 152 K/uL Mean Platelet Volume 9.5 fL Neutrophils (%) (Auto) 57.4 % Lymphocytes (%) (Auto) 28.3 % Monocytes (%) (Auto) 9.2 % Eosinophils (%) (Auto) 4.1 % Basophils (%) (Auto) 0.6 % Neutrophils # (Auto) 2.92 K/uL Lymphocytes # (Auto) 1.44 K/uL Monocytes # (Auto) 0.47 K/uL Eosinophils # (Auto) 0.21 K/uL Basophils # (Auto) 0.03 K/uL RDW Standard Deviation 46.0 fL RDW Coefficient of Variation 15.9 % Immature Granulocyte % (Auto) 0.4 % Immature Granulocyte # (Auto) 0.02 K/uL Prothrombin Time 11.6 SECONDS Prothromb Time International Ratio 1.1 Sodium Level 145 mmol/L Potassium Level 3.9 mmol/L Chloride Level 111 mmol/L Carbon Dioxide Level 24 mmol/L Anion Gap 10.0 mmol/L Blood Urea Nitrogen 9 mg/dl Creatinine 0.73 mg/dl Est Creatinine Clear Calc Drug Dose 81.8 ml/min Estimated GFR () 97.4 Estimated GFR (Non- 84.0 BUN/Creatinine Ratio 12.9 Random Glucose 90 mg/dl Calcium Level 8.6 mg/dl Bedside Glucose 90 mg/dl Exam: She is awake and alert. Speech is without significant aphasia or dysarthria. Mood and affect are quite normal and appropriate. Thought processes seem intact to conversation. She has no facial droop. Left side seems improved with strength compared to admission. Right side is 5/5 diffusely. There are no abnormal involuntary movements. She is sitting up in the chair and a breakfast well. Current Inpatient Medications Medications (Trade) Dose Ordered Sig/Mabel Route Start Time Stop Time Status Last Admin Dose Admin Acetaminophen (Tylenol Tab) 650 mg Q4H PRN PO 03/29/16 18:15 04/28/16 18:14 03/30/16 04:25 650 MG Ondansetron HCl (Zofran Inj) 4 mg Q6H PRN IV 03/29/16 18:15 04/28/16 18:14 Miscellaneous Information (Pharmacist Discharge Med Rec Consult) 1 ea UD PRN N/A 03/29/16 18:30 04/28/16 18:29 Albuterol (Ventolin Hfa Inhaler) 2 puffs BID INH 03/29/16 21:00 04/28/16 20:59 03/31/16 08:28 2 PUFFS Atorvastatin Calcium (Lipitor Tab) 40 mg DAILY PO 03/30/16 09:00 04/29/16 08:59 03/31/16 08:28 40 MG Miscellaneous Information (Order Awaiting Action) 1 ea QS N/A 03/30/16 08:00 04/29/16 07:59 Salmeterol Xinafoate/ Fluticasone (Advair Diskus 500/50 Inh) 1 puff BID INH 03/29/16 21:00 04/28/16 20:59 03/31/16 08:27 1 PUFF Levetiracetam (Keppra Tab) 750 mg BID PO 03/29/16 21:00 04/28/16 20:59 03/31/16 08:29 750 MG Montelukast Sodium (Singulair Tab) 10 mg QPM PO 03/30/16 21:00 04/29/16 20:59 03/30/16 21:18 10 MG Phenytoin Sodium (Dilantin Er Cap) 200 mg BID PO 03/29/16 21:00 04/28/16 20:59 03/31/16 08:28 200 MG Meclizine HCl (Antivert Tab) 12.5 mg TID PRN PO 03/29/16 18:45 04/28/16 18:44 Pantoprazole Sodium (Protonix Tab) 40 mg QAM PO 03/30/16 09:00 04/29/16 08:59 03/31/16 08:28 40 MG Insulin Aspart (novoLOG ASPART) SLIDING SCALE If C... ACHS SC 03/29/16 21:00 04/28/16 20:59 Glucose (Glucose 40% Gel) 15-30 GRAMS 15 GRAMS... UD PRN PO 03/29/16 18:45 04/28/16 18:44 Glucose (Glucose Chew Tab) 4-8 Tablets 4 Tabl... UD PRN PO 03/29/16 18:45 04/28/16 18:44 Dextrose (Dextrose 50% 50ML Syringe) 25-50ML OF 50% DW IV FOR... UD PRN IV 03/29/16 18:45 04/28/16 18:44 Glucagon 1 mg 1 mg UD PRN SQ 03/29/16 18:45 04/28/16 18:44 Sodium Chloride (Nss 1000ml) 1,000 ml @ 100 mls/hr Q10H IV 03/29/16 18:45 04/28/16 18:44 03/31/16 00:36 100 MLS/HR Clonidine HCl (Catapres Tab) 0.1 mg Q6H PRN PO 03/29/16 22:15 04/28/16 22:14 Gadopentetate Dimeglumine (Magnevist) 20 ml UD PRN IV 03/30/16 02:15 04/03/16 02:14 Impression 1. Events of March 29 are noted and a transient ischemic attack involving the right hemisphere is possible. The patient had some fluctuating symptomatology in the left side as noted above , given TPA, and symptoms resolved. Currently, the patient has an NIH stroke scale of 0 and has no focal neurologic signs, meningeal signs, or encephalopathy. 2. Risk factors for stroke including dyslipidemia, diabetes, and hypertension which was discovered on admission. 3. Complex partial seizure disorder, since teenager years. She is fairly well controlled on current doses of Dilantin and Keppra. Dilantin level was mid therapeutic. 4 chronic cerebral ischemia with history of old CVA and TIA in the past. 5. 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 This is an old issue.. Plan 1. I would consider adding an 81 mg aspirin tablet daily, assuming no other contraindication, for further CVA/TIA prevention. I do not see that the patient has been on any antiplatelet medication recently. 2. Continue Dilantin 200 mg twice a day and Keppra 750 mg twice a day for seizure prevention. 3. Increase activity as able. I no further neurologic testing or treatment recommendations to make at this time. I'm happy to follow this patient as an outpatient, if desired.
--- NOTE | 2016-03-31 19:09 | Progress Note ---
Medicine Progress Note Date & Time of Visit: Mar 31, 2016 at 19:05. Subjective states she feels better overall today denies headache, dizziness, focal neuro deficits no chest pain, dyspnea, palpitations in good spirits no other symptoms Objective Last 8 Hrs Date Time Temp Pulse Resp B/P Pulse Ox O2 Delivery O2 Flow Rate FiO2 03/31/16 16:07 36.8 86 20 130/80 94 Room Air 03/31/16 16:00 Room Air 03/31/16 12:17 37.2 76 18 116/71 93 Room Air 03/31/16 11:25 Room Air Physical Exam: General- oriented x 3, not in distress Eye anicteric Neck- supple, no JVD Lungs- clear to auscultation b/l, no rales/wheezes Heart- normal rate, regular rhythm; no murmurs Abdomen- normal bowel sounds, soft, nontender Extremities- no pretibial edema, no calf tenderness Neuro- alert, oriented x 3; PERRL, EOMI; no facial palsy; no dysarthria; motor 5 /5 bilaterally;sensation 100% Skin- warm & dry Laboratory Results: Last 24 Hours Test 03/31/16 05:40 03/31/16 07:30 03/31/16 12:58 03/31/16 16:38 White Blood Count 5.09 K/uL Red Blood Count 3.94 M/uL Hemoglobin 9.8 g/dL Hematocrit 31.0 % Mean Corpuscular Volume 78.7 fL Mean Corpuscular Hemoglobin 24.9 pg Mean Corpuscular Hemoglobin Concent 31.6 g/dl Platelet Count 152 K/uL Mean Platelet Volume 9.5 fL Neutrophils (%) (Auto) 57.4 % Lymphocytes (%) (Auto) 28.3 % Monocytes (%) (Auto) 9.2 % Eosinophils (%) (Auto) 4.1 % Basophils (%) (Auto) 0.6 % Neutrophils # (Auto) 2.92 K/uL Lymphocytes # (Auto) 1.44 K/uL Monocytes # (Auto) 0.47 K/uL Eosinophils # (Auto) 0.21 K/uL Basophils # (Auto) 0.03 K/uL RDW Standard Deviation 46.0 fL RDW Coefficient of Variation 15.9 % Immature Granulocyte % (Auto) 0.4 % Immature Granulocyte # (Auto) 0.02 K/uL Prothrombin Time 11.6 SECONDS Prothromb Time International Ratio 1.1 Sodium Level 145 mmol/L Potassium Level 3.9 mmol/L Chloride Level 111 mmol/L Carbon Dioxide Level 24 mmol/L Anion Gap 10.0 mmol/L Blood Urea Nitrogen 9 mg/dl Creatinine 0.73 mg/dl Est Creatinine Clear Calc Drug Dose 81.8 ml/min Estimated GFR () 97.4 Estimated GFR (Non- 84.0 BUN/Creatinine Ratio 12.9 Random Glucose 90 mg/dl Calcium Level 8.6 mg/dl Bedside Glucose 90 mg/dl 95 mg/dl 93 mg/dl Assessment & Plan POSSIBLE TIA s/p TPA 04/08/16 Patient with history of 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 Queen - recommended tPA S/p tPA with resolution of symptoms MRI brain, MRA head and neck: unrevealing echo: * -- Conclusions -- * Normal LV chamber size with mild concentric LVH. * Normal LV systolic function, EF 60-65%. * No segmental left ventricular wall motion abnormalities are noted. * Grade I diastolic dysfunction. * Aortic valve sclerosis mild, without significant aortic valvular stenosis. repeat CT head: unremarkable appreciate Dr. Estes's recommendations - will start Aspirin 81mg today, then daily Continue statin HYPERTENSION - Hold metoprolol for permissive HTN - BP stable - will resume low dose Metoprolol tomorrow DM TYPE 2 Not on medication Insulin sliding scale A1c: 5.9 SEIZURE DISORDER Denies recent seizure activity Continue Dilantin and Keppra ? HX CAD Pt/ not aware Per records had NSTEMI in 12/2014 Echo 02/2015 showed hyperdynamic LV function and class 1 diastolic dysfunction No intervention done as per patient/ COPD Not in acute exacerbation Continue home inhalers and Singulair DYSLIPIDEMIA Continue statin GERD Continue PPI FULL CODE per my discussion with the patient DVT PROPHYLAXIS SCD's Disposition possible d/c home in AM Current Inpatient Medications: Current Inpatient Medications Medications (Trade) Dose Ordered Sig/Mabel Route Start Time Stop Time Status Last Admin Dose Admin Acetaminophen (Tylenol Tab) 650 mg Q4H PRN PO 03/29/16 18:15 2/4/17 18:14 03/30/16 04:25 650 MG Ondansetron HCl (Zofran Inj) 4 mg Q6H PRN IV 03/29/16 18:15 04/28/16 18:14 Miscellaneous Information (Pharmacist Discharge Med Rec Consult) 1 ea UD PRN N/A 03/29/16 18:30 04/28/16 18:29 Albuterol (Ventolin Hfa Inhaler) 2 puffs BID INH 03/29/16 21:00 04/28/16 20:59 03/31/16 08:28 2 PUFFS Atorvastatin Calcium (Lipitor Tab) 40 mg DAILY PO 03/30/16 09:00 04/29/16 08:59 03/31/16 08:28 40 MG Miscellaneous Information (Order Awaiting Action) 1 ea QS N/A 03/30/16 08:00 04/29/16 07:59 Salmeterol Xinafoate/ Fluticasone (Advair Diskus 500/50 Inh) 1 puff BID INH 03/29/16 21:00 04/28/16 20:59 03/31/16 08:27 1 PUFF Levetiracetam (Keppra Tab) 750 mg BID PO 03/29/16 21:00 04/28/16 20:59 03/31/16 08:29 750 MG Montelukast Sodium (Singulair Tab) 10 mg QPM PO 03/30/16 21:00 04/29/16 20:59 03/30/16 21:18 10 MG Phenytoin Sodium (Dilantin Er Cap) 200 mg BID PO 03/29/16 21:00 04/28/16 20:59 03/31/16 08:28 200 MG Meclizine HCl (Antivert Tab) 12.5 mg TID PRN PO 03/29/16 18:45 04/28/16 18:44 Pantoprazole Sodium (Protonix Tab) 40 mg QAM PO 03/30/16 09:00 04/29/16 08:59 03/31/16 08:28 40 MG Insulin Aspart (novoLOG ASPART) SLIDING SCALE If C... ACHS SC 03/29/16 21:00 04/28/16 20:59 Glucose (Glucose 40% Gel) 15-30 GRAMS 15 GRAMS... UD PRN PO 03/29/16 18:45 04/28/16 18:44 Glucose (Glucose Chew Tab) 4-8 Tablets 4 Tabl... UD PRN PO 03/29/16 18:45 04/28/16 18:44 Dextrose (Dextrose 50% 50ML Syringe) 25-50ML OF 50% DW IV FOR... UD PRN IV 03/29/16 18:45 04/28/16 18:44 Glucagon (Glucagon Inj) 1 mg UD PRN SQ 03/29/16 18:45 04/28/16 18:44 Clonidine HCl (Catapres Tab) 0.1 mg Q6H PRN PO 03/29/16 22:15 04/28/16 22:14 Gadopentetate Dimeglumine (Magnevist) 20 ml UD PRN IV 03/30/16 02:15 04/03/16 02:14
[2016-03-31] MEDS ORDERED: ASPIRIN 81 MG ECTAB PO ONE (19:30)
[2016-03-31] MEDS: MONTELUKAST SOD 10 MG TAB PO SCH (20:35)
[2016-04-01 04:15] VITALS: BP 118/77; PULSE 73; TEMP 36.5; O2SAT 95
[2016-04-01 05:56] LABS: BASO % 0.2 %; EOS % 4.4 %; HEMATOCRIT 31.4 % (37-47); LYMPH % 25.8 %; MEAN CELL VOLUME 79.5 fL (80-100); MEAN CORPUSCULAR HEMOGLOBIN 24.3 pg (25-34); MEAN CORPUSCULAR HGB CONC 30.6 g/dl (32-36); MEAN PLATELET VOLUME 9.9 fL (7.4-10.4); MONO % 12.8 %; NEUT % 56.6 %; PLATELET COUNT 145 K/uL (130-400); RED BLOOD COUNT 3.95 M/uL (4.2-5.4); WHITE BLOOD COUNT 4.07 K/uL (4.8-10.8)
[2016-04-01 05:57] LABS: BASO ABS # 0.01 K/uL (0-0.2); COMPLETE YES; IG% 0.2 %; LYMPH ABS # 1.05 K/uL (1.2-3.4)
[2016-04-01 06:06] LABS: INR 1.1 (0.9-1.1); PROTHROMBIN TIME (PATIENT) 11.6 SECONDS (9.0-12.0)
[2016-04-01 06:32] LABS: BUN/CREATININE RATIO 14.6 (10-20); CALCIUM 8.5 mg/dl (8.5-10.1); CREATININE 0.74 mg/dl (0.60-1.20); POTASSIUM 3.7 mmol/L (3.5-5.1)
[2016-04-01 07:17] VITALS: BP 142/79; PULSE 70; TEMP 37.2; O2SAT 92
[2016-04-01] MEDS: [UNRECOGNIZED DRUG - OTHER] SCH ×2 (08:00→16:00)
[2016-04-01] MEDS: ALBUTEROL HFA 8 GM INHALER INH SCH ×2 (08:16→20:49)
[2016-04-01] MEDS: FLUTICASONE/SALMETEROL (ADVAIR) 500/50 INH 14 PUFF INH SCH ×2 (08:16→20:49)
[2016-04-01] MEDS: INSULIN ASPART 100 UNITS/ML 3 ML PEN SC SCH ×4 (08:16→20:48)
[2016-04-01] MEDS: ATORVASTATIN 40 MG TAB PO SCH (08:17)
[2016-04-01] MEDS: ASPIRIN 81 MG ECTAB PO SCH (08:17)
[2016-04-01] MEDS: PHENYTOIN SODIUM ER 100 MG CAP PO SCH ×2 (08:17→20:48)
[2016-04-01] MEDS: LEVETIRACETAM 250 MG TAB PO SCH ×2 (08:17→20:48)
[2016-04-01] MEDS: PANTOprazole SOD 40 MG TAB PO SCH (08:17)
[2016-04-01 11:53] VITALS: BP 187/82; PULSE 75; TEMP 36.8; O2SAT 94
--- NOTE | 2016-04-01 14:52 | Progress Note ---
Medicine Progress Note Date & Time of Visit: Apr 01, 2016 at 14:46. Subjective patient seen resting in bed, in good spirits denies any new focal neuro deficits no headache, dizziness, nausea, chest pain, dyspnea , palpitations ambulating with no problems states she feels much better, and would like to be discharged today Objective Last 8 Hrs Date Time Temp Pulse Resp B/P Pulse Ox O2 Delivery O2 Flow Rate FiO2 04/01/16 11:53 36.8 75 20 187/82 94 Room Air 04/01/16 11:12 Room Air 04/01/16 07:45 Room Air 04/01/16 07:17 37.2 70 18 142/79 92 Room Air Physical Exam: General- oriented x 3, not in distress Eye anicteric Neck- supple, no JVD Lungs- clear to auscultation b/l, no rales/wheezes Heart- normal rate, regular rhythm; no murmurs Abdomen- normal bowel sounds, soft, nontender Extremities- no pretibial edema, no calf tenderness Neuro- alert, oriented x 3; no gross focal deficits Skin- warm & dry Laboratory Results: Last 24 Hours Test 03/31/16 16:38 03/31/16 21:15 04/01/16 05:21 04/01/16 05:24 Bedside Glucose 93 mg/dl 93 mg/dl White Blood Count 4.07 K/uL Red Blood Count 3.95 M/uL Hemoglobin 9.6 g/dL Hematocrit 31.4 % Mean Corpuscular Volume 79.5 fL Mean Corpuscular Hemoglobin 24.3 pg Mean Corpuscular Hemoglobin Concent 30.6 g/dl Platelet Count 145 K/uL Mean Platelet Volume 9.9 fL Neutrophils (%) (Auto) 56.6 % Lymphocytes (%) (Auto) 25.8 % Monocytes (%) (Auto) 12.8 % Eosinophils (%) (Auto) 4.4 % Basophils (%) (Auto) 0.2 % Neutrophils # (Auto) 2.30 K/uL Lymphocytes # (Auto) 1.05 K/uL Monocytes # (Auto) 0.52 K/uL Eosinophils # (Auto) 0.18 K/uL Basophils # (Auto) 0.01 K/uL RDW Standard Deviation 45.6 fL RDW Coefficient of Variation 15.7 % Immature Granulocyte % (Auto) 0.2 % Immature Granulocyte # (Auto) 0.01 K/uL Prothrombin Time 11.6 SECONDS Prothromb Time International Ratio 1.1 Sodium Level 143 mmol/L Potassium Level 3.7 mmol/L Chloride Level 108 mmol/L Carbon Dioxide Level 27 mmol/L Anion Gap 8.0 mmol/L Blood Urea Nitrogen 11 mg/dl Creatinine 0.74 mg/dl Est Creatinine Clear Calc Drug Dose 81.0 ml/min Estimated GFR () 95.8 Estimated GFR (Non- 82.7 BUN/Creatinine Ratio 14.6 Random Glucose 91 mg/dl Calcium Level 8.5 mg/dl Test 04/01/16 07:14 04/01/16 11:17 Bedside Glucose 93 mg/dl 99 mg/dl Assessment & Plan POSSIBLE TRANSIENT ISCHEMIC ATTACK, s/p TPA 03/29/16 Patient with history of 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 Queen - recommended tPA S/p tPA with resolution of symptoms 03/29/16 MRI brain, MRA head and neck: unrevealing echo: * -- Conclusions -- * Normal LV chamber size with mild concentric LVH. * Normal LV systolic function, EF 60-65%. * No segmental left ventricular wall motion abnormalities are noted. * Grade I diastolic dysfunction. * Aortic valve sclerosis mild, without significant aortic valvular stenosis. Repeat CT head after 24 hours: unremarkable - evaluated by Dr. Estes- Neurologist - recommend Aspirin 81mg today, then daily Continue statin - continue risk factor control including HTN, DM HYPERTENSION - hel metoprolol for permissive HTN - BP stable - resume usual Metoprolol - monitor as outpatient DM TYPE 2 Not on medication Insulin sliding scale given A1c: 5.9 - monitor as outpatient SEIZURE DISORDER Denies recent seizure activity Continue Dilantin and Keppra ? HX CAD Pt/ not aware Per records had NSTEMI in 12/2014 No intervention done as per patient/ - echo as noted above - no cardiac symptoms COPD Not in acute exacerbation Continue home inhalers and Singulair DYSLIPIDEMIA LDL 64 Continue statin GERD Continue PPI FULL CODE DVT PROPHYLAXIS SCD's Disposition d/c home today ff up with PCP in 3-5 days Current Inpatient Medications: Current Inpatient Medications Medications (Trade) Dose Ordered Sig/Mabel Route Start Time Stop Time Status Last Admin Dose Admin Acetaminophen (Tylenol Tab) 650 mg Q4H PRN PO 03/29/16 18:15 04/28/16 18:14 03/30/16 04:25 650 MG Ondansetron HCl (Zofran Inj) 4 mg Q6H PRN IV 03/29/16 18:15 04/28/16 18:14 Miscellaneous Information (Pharmacist Discharge Med Rec Consult) 1 ea UD PRN N/A 03/29/16 18:30 04/28/16 18:29 Albuterol (Ventolin Hfa Inhaler) 2 puffs BID INH 03/29/16 21:00 04/28/16 20:59 04/01/16 08:16 2 PUFFS Atorvastatin Calcium (Lipitor Tab) 40 mg DAILY PO 03/30/16 09:00 04/29/16 08:59 04/01/16 08:17 40 MG Miscellaneous Information (Order Awaiting Action) 1 ea QS N/A 03/30/16 08:00 04/29/16 07:59 Salmeterol Xinafoate/ Fluticasone (Advair Diskus 500/50 Inh) 1 puff BID INH 03/29/16 21:00 04/28/16 20:59 04/01/16 08:16 1 PUFF Levetiracetam (Keppra Tab) 750 mg BID PO 03/29/16 21:00 04/28/16 20:59 04/01/16 08:17 750 MG Montelukast Sodium (Singulair Tab) 10 mg QPM PO 03/30/16 21:00 04/29/16 20:59 03/31/16 20:35 10 MG Phenytoin Sodium (Dilantin Er Cap) 200 mg BID PO 03/29/16 21:00 04/28/16 20:59 04/01/16 08:17 200 MG Meclizine HCl (Antivert Tab) 12.5 mg TID PRN PO 03/29/16 18:45 04/28/16 18:44 Pantoprazole Sodium (Protonix Tab) 40 mg QAM PO 03/30/16 09:00 04/29/16 08:59 04/01/16 08:17 40 MG Insulin Aspart (novoLOG ASPART) SLIDING SCALE If C... ACHS SC 03/29/16 21:00 04/28/16 20:59 Glucose (Glucose 40% Gel) 15-30 GRAMS 15 GRAMS... UD PRN PO 03/29/16 18:45 04/28/16 18:44 Glucose (Glucose Chew Tab) 4-8 Tablets 4 Tabl... UD PRN PO 03/29/16 18:45 04/28/16 18:44 Dextrose (Dextrose 50% 50ML Syringe) 25-50ML OF 50% DW IV FOR... UD PRN IV 03/29/16 18:45 04/28/16 18:44 Glucagon (Glucagon Inj) 1 mg UD PRN SQ 03/29/16 18:45 04/28/16 18:44 Clonidine HCl (Catapres Tab) 0.1 mg Q6H PRN PO 03/29/16 22:15 04/28/16 22:14 04/01/16 12:52 0.1 MG Gadopentetate Dimeglumine (Magnevist) 20 ml UD PRN IV 03/30/16 02:15 04/03/16 02:14 Aspirin (Ecotrin Tab) 81 mg DAILY PO 04/01/16 09:00 05/01/16 08:59 04/01/16 08:17 81 MG
[2016-04-01] MEDS ORDERED: ASPEC81 PO (15:00)
[2016-04-01] MEDS ORDERED: HYDR-4079 PO (15:00)
[2016-04-01 15:08] VITALS: BP 149/82; PULSE 77; TEMP 36.8; O2SAT 96
--- NOTE | 2016-04-01 15:09 | Discharge Summary ---
Discharge Summary Admission Date: Mar 29, 2016 at 17:50 Discharge Date: Apr 01, 2016 Discharge Disposition: Home Principal Diagnosis: POSSIBLE TRANSIENT ISCHEMIC ATTACK, s/p TPA 03/29/16 Secondary Diagnoses/Problems: Please refer to hospital course below. Procedures: s/p TPA administration 03/29/16; MRI OF THE BRAIN COMBO CLINICAL HISTORY: Strokelike symptoms. COMPARISON STUDY: CT of the brain dated 03/29/2016. MRI of the brain dated 02/22/2015. TECHNIQUE: MRI of the brain was performed utilizing various T1 and T2-weighted sequences in the axial, sagittal, and coronal planes. Contrast-enhanced sequences were acquired following the administration of 20 cc of Magnevist. The examination is significantly degraded by motion artifact. The postcontrast images are of limited utility. FINDINGS: Brain parenchyma: There are age-related involutional changes noting moderate confluent subcortical and periventricular microangiopathic disease. Left cerebellar encephalomalacia is unchanged. There is no hemorrhage or mass effect. There is no restricted diffusion to suggest acute ischemia. No enhancing mass lesion is identified on the postcontrast images. Thinning of the corpus callosum is similar to previous. Wilcox-white matter differentiation is preserved. No extra-axial fluid collection is seen. The cerebellar tonsils are normal in configuration. Ventricles, sulci, and cisterns: Prominent secondary to involutional change. Pituitary and sella: Unremarkable. Intracranial vasculature: Normal flow voids are maintained at the skull base. Orbits: The bony orbits are grossly intact. Deformity of the left globe is unchanged from previous. The right orbital contents are normal as imaged. Sinuses and mastoids: Clear. Calvarium: Unremarkable. Cervical cord: Partially visualized cervical spinal cord is normal in morphology and signal intensity. IMPRESSION: 1. Motion degraded examination. 2. There is no hemorrhage, mass effect, or evidence of acute ischemia. 3. Chronic findings as above. There has been no significant change from the 02/22/2015 examination. Brain MRA HISTORY: stroke TECHNIQUE: 3-D [id number] MRA of the brain was performed without contrast. COMPARISON STUDY: None. FINDINGS: Motion degradation. Visualized intracranial internal carotid arteries, distal vertebral arteries, and basilar artery are widely patent. There is no significant stenosis, occlusion, or aneurysm seen within the bilateral ACAs, MCAs, or water pollution specialist. IMPRESSION: Motion degradation. No definite stenosis, occlusion, or aneurysm within the [place]. NECK MRA HISTORY: Stroke symptoms. TECHNIQUE: [id number] and gadolinium-enhanced MRA of the neck was performed both before and after the intravenous administration of contrast. All measurements were calculated based on NASCET criteria. COMPARISON STUDY: Neck CTA 02/22/2015. FINDINGS: Significant motion artifact. The aortic arch and proximal great vessels are widely patent. There is no definite stenosis, occlusion, or dissection identified within the visualized bilateral common carotid, internal carotid, or vertebral arteries. IMPRESSION: Significant motion artifact. No definite stenosis, occlusion, or dissection identified within the carotid or vertebral arteries. Consultations: Neurologist Dr. Estes Pending Studies/Follow-Up: Please refer to hospital course below. Medication Reconciliation New Medications: Aspirin (Aspirin EC Low Dose) 81 Mg Ectab 81 MG PO DAILY for 30 Days, #30 TABS 2 Refills with food Changed Medications: Hydrocodone/Acetaminophen 10MG/325MG ([place] 10MG/325MG) Tab 1 TAB PO TID for 10 Days (Changed from: 5XD) PRN PAIN Continued Medications: Albuterol Hfa (Ventolin Hfa) 200 Puffs/24466 Mcg Aers 2 PUFFS INH BID, #1 INHALER Atorvastatin (Lipitor) 40 Mg Tab 40 MG PO DAILY, TAB Ergocalciferol (Vitamin D 68290 Unit) 50,000 Unit Cap 29763 UNIT PO WK, CAP Fluticasone Prop/Salmeterol (Advair Diskus 500/50 60 Dose) 1 Ea Aerp 1 PUFF INH BID, INHALER Levetiracetam (Keppra) 750 Mg Tab 750 MG PO BID, TAB START 03/21/16 Meclizine Hcl (Meclizine Hcl) 12.5 Mg Tab 12.5 MG PO TID PRN for Dizziness or Vertigo Metoprolol Tartrate (Lopressor) (Lopressor) 25 Mg Tab 25 MG PO BID, TAB Montelukast Sodium (Singulair) 10 Mg Tab 10 MG PO DAILY, TAB Omeprazole (Prilosec) 20 Mg Cap 20 MG PO DAILY, CAP Phenytoin Sodium (Dilantin) 100 Mg Cap 200 MG PO BID, CAP EXTENDED RELEASE Discontinued Medications: Amoxicillin & Pot Clavulanate (Augmentin 875-125 mg) 1 Tab Tab 1 TAB PO BID, #14 TAB Admission Information HPI (per Admitting provider): This is a 70 year old female with PMH of probable small right medial temporal lobe stroke in mid December 2014 as per records, seizure disorder with history of positive EEG, history of STEMI in Dec 2014 as per records, HL, DM type 2, COPD, and other problems listed below who presents to the ED for stroke like symptoms. Pt is a somewhat poor historian about her medical history. Patient states around 1430 she was in her usual state of health when she developed left arm and leg weakness and numbness. She was unable to walk due to leg weakness. Her called 911 and she was brought to the ER by ambulance. states her speech was transiently abnormal when EMS arrived. Once she arrived to the ER she was noted to have left sided motor and sensory deficit so stroke alert was called, teleconference done with [place] [facility]rologist Dr. Queen who recommended tPA which was given at 16:44. Patient reports improvement of her weakness s/p tPA. Patient reports frontal [place] with unclear duration. denies any facial droop. Pt denies acute change in vision (has chronic L eye blindness), swallowing difficulty, recent seizure like activity, LOC. Denies recent fevers, URI or flu like illness, chest pain, SOB, abdominal pain, nausea , vomiting, diarrhea, urinary changes, abnormal bleeding. Patient/ not aware of prior stroke or CAD history in the hospital records. Denies hx of arrhythmia. Denies history of open heart surgery or any coronary intervention. Physical Exam (per Admitting): General Appearance: WD/WN, no apparent distress, + pertinent finding (alert , cooperative. poor hygiene. at bedside) Head: normocephalic, atraumatic Eyes: normal inspection, EOMI, + pertinent finding (right pupil reactive to light. left pupil is opaque and nonreactive. ) ENT: hearing grossly normal, pharynx normal Neck: supple, no JVD, no carotid bruits, trachea midline Respiratory/Chest: lungs clear, normal breath sounds, no accessory muscle use Cardiovascular: regular rate, rhythm, no murmur Abdomen/GI: normal bowel sounds, non tender, soft Extremities/Musculoskelatal: normal inspection, no calf tenderness, normal capillary refill, no pedal edema Neurologic/Psych: credit risk associate II-XII nml as tested, no motor/sensory deficits, alert , normal mood/affect, oriented x 3 Skin: normal color, warm/dry Hospital Course POSSIBLE TRANSIENT ISCHEMIC ATTACK, s/p TPA 03/29/16 Patient with history of 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 Queen - recommended tPA S/p tPA with resolution of symptoms 03/29/16 MRI brain, MRA head and neck: unrevealing echo: * -- Conclusions -- * Normal LV chamber size with mild concentric LVH. * Normal LV systolic function, EF 60-65%. * No segmental left ventricular wall motion abnormalities are noted. * Grade I diastolic dysfunction. * Aortic valve sclerosis mild, without significant aortic valvular stenosis. Repeat CT head after 24 hours: unremarkable - evaluated by Dr. Estes- Neurologist - recommend Aspirin 81mg today, then daily Continue statin - continue risk factor control including HTN, DM HYPERTENSION - hel metoprolol for permissive HTN - BP stable - resume usual Metoprolol - monitor as outpatient DM TYPE 2 Not on medication Insulin sliding scale given A1c: 5.9 - monitor as outpatient SEIZURE DISORDER Denies recent seizure activity Continue Dilantin and Keppra ? HX CAD Pt/ not aware Per records had NSTEMI in 12/2014 No intervention done as per patient/ - echo as noted above - no cardiac symptoms COPD Not in acute exacerbation Continue home inhalers and Singulair DYSLIPIDEMIA LDL 64 Continue statin GERD Continue PPI FULL CODE DVT PROPHYLAXIS SCD's Disposition d/c home today ff up with PCP in 3-5 days Total time spent on discharge = 30 minutes This includes examination of the patient, discharge planning, medication reconciliation, and communication with other providers. Discharge Instructions Discharge Instructions Admission Reason for Admission: Stroke Like Symptoms Discharge Discharge Diagnosis / Problem: Possible Transient Ischemic Attack Discharge Goals Goal(s): Diagnostic testing, Therapeutic intervention Activity Recommendations Activity Limitations: as noted below (no heavy exertion until seen by Primary Care Physician) Driving or Machine Use: No driving until re-evaluated by Primary care physician . Instructions / Follow-Up Instructions / Follow-Up PLEASE FOLLOW UP WITH PRIMARY CARE PHYSICIAN IN 3-5 DAYS. Risk Factors for Stroke: You can reduce your chances of stroke by working with your medical provider to adopt a healthy lifestyle. Some specific ways to lower your chance of stroke are: * If you are a smoker, now is the time to stop smoking cigarettes * If you are diabetic, improve the control of your blood sugars * Avoid excessive amounts of alcohol * Control high blood pressure * Lose weight if you are overweight * Be sure to lead an active lifestyle * Eat a healthy diet low in salt, cholesterol and fat You should know about other risk factors for stroke that you are unable to control. These include: * Age 55 years or older * Male gender * Certain racial groups: , or / * Family History of Stroke, Mini stroke or Heart Attack * Sickle Cell Disease Follow Up: It is important for you to keep your follow up appointments with your medical provider. Current Hospital Diet Patient's current hospital diet: AHA Diet (Heart Healthy), Diabetes Type 2 Diet Discharge Diet Recommended Diet: AHA Diet (Heart Healthy), Diabetes Type 2 Diet Pending Studies Studies pending at discharge: no Laboratory Results Hemoglobin A1c Test 03/29/16 16:27 Range/Units Estimated Average Glucose 123 mg/dl Hemoglobin A1c 5.9 H 4.5-5.6 % Lipid Panel Test 03/30/16 05:36 Range/Units Triglycerides Level 126 0-150 mg/dl Cholesterol Level 139 0-200 mg/dl HDL Cholesterol 50 mg/dl Cholesterol/HDL Ratio 2.8 LDL Cholesterol, Calculated 64 mg/dl Medical Emergencies . Who to Call and When: Medical Emergencies: Call 911 immediately if you experience any of the following warning signs and symptoms of Stroke: * Sudden numbness or weakness of the face, arm or leg, especially on one side of the body * Sudden confusion, trouble speaking or understanding * Sudden trouble seeing in one or both eyes * Sudden trouble walking, dizziness, loss of balance or coordination * Sudden severe headache with no cause Do not delay calling 911 if you experience any warning signs or symptoms of a stroke. Delay in seeking medical attention may affect what treatments can be given to you. . Non-Emergent Contact Non-Emergency issues call your: Primary Care Provider Call Non-Emergent contact if: you have a fever . Past History Medical & Surgical History: (1) Asthma (2) GERD (gastroesophageal reflux disease) (3) Seizure disorder (4) Diabetes (5) Hypercholesteremia (6) CVA (cerebral vascular accident) (7) Cataract (8) Hx of non-ST elevation myocardial infarction (NSTEMI) (9) No significant past surgical history . "Provider Documentation" section prepared by Nathan Kelley. Stroke Core Measures Reason no t-PA for Stroke: Treatment provided - N/A Reason no antithrom by day 2: Treatment provided - N/A Reason no antithrom at D/C: Treatment provided - N/A Reason no statin at D/C: Treatment provided - N/A Reason no anticoag w/a fib: Treatment not indicated VTE Core Measure Inpt VTE Proph given/why not?: Contraindicated
--- NOTE | 2016-04-01 15:53 | Pharmacy Progress Note ---
Pharmacist Stroke Counseling Date of Service Apr 01, 2016. Scope Pharmacy has been consulted to provide medication discharge counseling for this patient admitted with ischemic stroke/hemorrhagic stroke/ transient ischemic attack as per the Pharmacist Discharge Counseling for Stroke Patients Protocol. Medications on Discharge New Medications: Aspirin (Aspirin EC Low Dose) 81 Mg Ectab 81 MG PO DAILY for 30 Days, #30 TABS 2 Refills with food Changed Medications: Hydrocodone/Acetaminophen 10MG/325MG ([place] 10MG/325MG) Tab 1 TAB PO TID for 10 Days (Changed from: 5XD) PRN PAIN Continued Medications: Albuterol Hfa (Ventolin Hfa) 200 Puffs/83401 Mcg Aers 2 PUFFS INH BID, #1 INHALER Atorvastatin (Lipitor) 40 Mg Tab 40 MG PO DAILY, TAB Ergocalciferol (Vitamin D 47936 Unit) 50,000 Unit Cap 60972 UNIT PO WK, CAP Fluticasone Prop/Salmeterol (Advair Diskus 500/50 60 Dose) 1 Ea Aerp 1 PUFF INH BID, INHALER Levetiracetam (Keppra) 750 Mg Tab 750 MG PO BID, TAB START 03/21/16 Meclizine Hcl (Meclizine Hcl) 12.5 Mg Tab 12.5 MG PO TID PRN for Dizziness or Vertigo Metoprolol Tartrate (Lopressor) (Lopressor) 25 Mg Tab 25 MG PO BID, TAB Montelukast Sodium (Singulair) 10 Mg Tab 10 MG PO DAILY, TAB Omeprazole (Prilosec) 20 Mg Cap 20 MG PO DAILY, CAP Phenytoin Sodium (Dilantin) 100 Mg Cap 200 MG PO BID, CAP EXTENDED RELEASE Discontinued Medications: Amoxicillin & Pot Clavulanate (Augmentin 875-125 mg) 1 Tab Tab 1 TAB PO BID, #14 TAB Action The above medications, specifically ones for stroke treatment/prophylaxis, have been reviewed in detail with the patient and/or patient sales representative electric service(s) prior to discharge. This includes indication, common adverse reactions, drug interactions, and medication administration. Medication counseling has been employed using the teach-back method to ensure understanding. Outcome The patient has demonstrated understanding of the medications. Please note, they are aware that the pharmacist will call them within 72 hours post-discharge to confirm that the appropriate medications are being taken and answer any further medication related questions the patient might have at that time. Contact information Individual to be contacted: Maegan Hood (self) Relationship to patient (if applicable): self Phone number: [phone] Best time to call: 0900 Additional comments: Thank you for allowing pharmacy to be involved in the care of this patient. Please call [phone] or [phone] with any additional questions
[2016-04-01 19:55] VITALS: BP 134/78; PULSE 67; TEMP 36.6; O2SAT 95
[2016-04-01] MEDS: MONTELUKAST SOD 10 MG TAB PO SCH (20:47)
[2016-04-01 23:57] VITALS: BP 120/65; PULSE 69; TEMP 36.6; O2SAT 92
[2016-04-02] VITALS: O2SAT 92
[2016-04-02 04:31] VITALS: BP 124/65; PULSE 86; TEMP 36.5; O2SAT 96
[2016-04-02] MEDS: INSULIN ASPART 100 UNITS/ML 3 ML PEN SC SCH (06:30)
[2016-04-02 08:00] VITALS: BP 145/65; PULSE 93; TEMP 36.7; O2SAT 96
[2016-04-02] MEDS: [UNRECOGNIZED DRUG - OTHER] SCH ×2 (08:00)
[2016-04-02] MEDS: ALBUTEROL HFA 8 GM INHALER INH SCH (08:20)
[2016-04-02] MEDS: FLUTICASONE/SALMETEROL (ADVAIR) 500/50 INH 14 PUFF INH SCH (08:20)
[2016-04-02] MEDS: LEVETIRACETAM 250 MG TAB PO SCH (08:21)
[2016-04-02] MEDS: ASPIRIN 81 MG ECTAB PO SCH (08:21)
[2016-04-02] MEDS: PHENYTOIN SODIUM ER 100 MG CAP PO SCH (08:22)
[2016-04-02] MEDS: ATORVASTATIN 40 MG TAB PO SCH (08:22)
[2016-04-02] MEDS: PANTOprazole SOD 40 MG TAB PO SCH (08:22)
[2016-04-02 09:14] VITALS: BP 137/80; PULSE 82; O2SAT 96
--- NOTE | 2016-04-02 11:00 | Progress Note ---
Medicine Progress Note Date & Time of Visit: Apr 02, 2016 at 10:56. Subjective patient seen sitting up in bed, in good spirits her was at the bedside states she feels better overall denies any focal weakness or numbness denies headache, dizziness, nausea/vomiting no other symptoms states she is ready and would like to be discharged today Objective Last 8 Hrs Date Time Temp Pulse Resp B/P Pulse Ox O2 Delivery O2 Flow Rate FiO2 04/02/16 09:14 82 96 04/02/16 08:00 36.7 93 20 145/65 96 Room Air 04/02/16 08:00 96 Room Air 04/02/16 04:31 36.5 86 20 124/65 96 Room Air 04/02/16 04:00 Room Air Physical Exam: General- oriented x 3, not in distress Neck- no JVD Lungs- clear breath sounds bilaterally, no rales/wheezes Heart- normal rate, regular rhythm; no murmurs Abdomen- normal bowel sounds, soft, nontender Extremities- no pretibial edema, no calf tenderness Neuro- alert, oriented x 3; no gross focal deficits Skin- warm & dry Laboratory Results: Last 24 Hours Test 04/01/16 11:17 04/01/16 20:47 04/02/16 07:50 Bedside Glucose 99 mg/dl 88 mg/dl 100 mg/dl Assessment & Plan POSSIBLE TRANSIENT ISCHEMIC ATTACK, s/p TPA 03/29/16 Patient with history of probable small right medial temporal lobe stroke in mid December 2014, as per neurology note Presented with acute onset of LUE and LLE weakness and numbness CT head- no acute findings, +extensive white matter disease similar to the prior study [place] telemedicine consult done with neurologist Dr. Queen - recommended tPA S/p tPA with resolution of symptoms 03/29/16 MRI brain, MRA head and neck: unrevealing echo: * -- Conclusions -- * Normal LV chamber size with mild concentric LVH. * Normal LV systolic function, EF 60-65%. * No segmental left ventricular wall motion abnormalities are noted. * Grade I diastolic dysfunction. * Aortic valve sclerosis mild, without significant aortic valvular stenosis. Repeat CT head after 24 hours: unremarkable - evaluated by Dr. Estes- Neurologist - recommend Aspirin 81mg today, then daily Continue statin - continue risk factor control including HTN, DM HYPERTENSION - hel metoprolol for permissive HTN - BP stable - resume usual Metoprolol - monitor as outpatient DM TYPE 2 Not on medication Insulin sliding scale given A1c: 5.9 - monitor as outpatient SEIZURE DISORDER Denies recent seizure activity Continue Dilantin and Keppra ? HX CAD Pt/ not aware Per records had NSTEMI in 12/2014 No intervention done as per patient/ - echo as noted above - no cardiac symptoms COPD Not in acute exacerbation Continue home inhalers and Singulair DYSLIPIDEMIA LDL 64 Continue statin GERD Continue PPI FULL CODE DVT PROPHYLAXIS SCD's Disposition d/c home today ff up with PCP in 3-5 days Consultants: Neurologist Dr. Estes Procedures: s/p TPA administration Current Inpatient Medications: Current Inpatient Medications Medications (Trade) Dose Ordered Sig/Mabel Route Start Time Stop Time Status Last Admin Dose Admin Acetaminophen (Tylenol Tab) 650 mg Q4H PRN PO 03/29/16 18:15 04/28/16 18:14 03/30/16 04:25 650 MG Ondansetron HCl (Zofran Inj) 4 mg Q6H PRN IV 03/29/16 18:15 04/28/16 18:14 Miscellaneous Information (Pharmacist Discharge Med Rec Consult) 1 ea UD PRN N/A 03/29/16 18:30 04/28/16 18:29 Albuterol (Ventolin Hfa Inhaler) 2 puffs BID INH 03/29/16 21:00 04/28/16 20:59 04/02/16 08:20 2 PUFFS Atorvastatin Calcium (Lipitor Tab) 40 mg DAILY PO 03/30/16 09:00 04/29/16 08:59 04/02/16 08:22 40 MG Miscellaneous Information (Order Awaiting Action) 1 ea QS N/A 03/30/16 08:00 04/29/16 07:59 Salmeterol Xinafoate/ Fluticasone (Advair Diskus 500/50 Inh) 1 puff BID INH 03/29/16 21:00 04/28/16 20:59 04/02/16 08:20 1 PUFF Levetiracetam (Keppra Tab) 750 mg BID PO 03/29/16 21:00 04/28/16 20:59 04/02/16 08:21 750 MG Montelukast Sodium (Singulair Tab) 10 mg QPM PO 03/30/16 21:00 04/29/16 20:59 04/01/16 20:47 10 MG Phenytoin Sodium (Dilantin Er Cap) 200 mg BID PO 03/29/16 21:00 04/28/16 20:59 04/02/16 08:22 200 MG Meclizine HCl (Antivert Tab) 12.5 mg TID PRN PO 03/29/16 18:45 04/28/16 18:44 Pantoprazole Sodium (Protonix Tab) 40 mg QAM PO 03/30/16 09:00 04/29/16 08:59 04/02/16 08:22 40 MG Insulin Aspart (novoLOG ASPART) SLIDING SCALE If C... ACHS SC 03/29/16 21:00 04/28/16 20:59 04/02/16 06:30 2 UNITS Glucose (Glucose 40% Gel) 15-30 GRAMS 15 GRAMS... UD PRN PO 03/29/16 18:45 04/28/16 18:44 Glucose (Glucose Chew Tab) 4-8 Tablets 4 Tabl... UD PRN PO 03/29/16 18:45 04/28/16 18:44 Dextrose (Dextrose 50% 50ML Syringe) 25-50ML OF 50% DW IV FOR... UD PRN IV 03/29/16 18:45 04/28/16 18:44 Glucagon (Glucagon Inj) 1 mg UD PRN SQ 03/29/16 18:45 04/28/16 18:44 Clonidine HCl (Catapres Tab) 0.1 mg Q6H PRN PO 03/29/16 22:15 04/28/16 22:14 04/01/16 12:52 0.1 MG Gadopentetate Dimeglumine (Magnevist) 20 ml UD PRN IV 03/30/16 02:15 04/03/16 02:14 Aspirin (Ecotrin Tab) 81 mg DAILY PO 04/01/16 09:00 05/01/16 08:59 04/02/16 08:21 81 MG
--- NOTE | 2016-04-04 09:07 | Pharmacy Progress Note ---
Pharmacist Post D/C Phone Note Date of phone call: Apr 04, 2016. The patient and/or patient tax compliance representative(s) were unable to be reached for a follow-up phone call within the 72 hour time frame. Discharge counseling pharmacist contact information has already been provided to the patient should questions arise. Attempted to reach patient at 905 AM (around the time the patient asked to be called)- there was no answering machine so no message could be left. Let phone ring numerous times. Thank you for allowing us to be involved in the care of this patient.
== END 2016-04-02 11:42 | disposition home or self-care (01) | DRG 69 ==
LOC: ENRESERVDT → ENRESERVTM → C.ED 16:04 → C.MSICU 17:50 → C.MED 03-30 23:54
PROVIDERS: ADMIT Internal Medicine; ATTEND Internal Medicine
DX: G45.9 Transient cerebral ischemic attack, unspecified (principal); G40.209 Localization-related (focal) (partial) symptomatic epilepsy and epileptic syndromes with complex partial seizures, not intractable, without status epilepticus; G81.94 Hemiplegia, unspecified affecting left nondominant side; J45.909 Unspecified asthma, uncomplicated; Z86.73 Personal history of transient ischemic attack (TIA), and cerebral infarction without residual deficits; E11.9 Type 2 diabetes mellitus without complications; K21.9 Gastro-esophageal reflux disease without esophagitis; I25.2 Old myocardial infarction; Z87.891 Personal history of nicotine dependence; J44.9 Chronic obstructive pulmonary disease, unspecified; H54.42 Blindness, left eye, normal vision right eye; H26.9 Unspecified cataract; E78.00 Pure hypercholesterolemia, unspecified

== ENCOUNTER 2016-12-28 20:20 | Inpatient (IN) | payer OTHER ==
[~2016-12-28] VITALS: Ht 160 cm; Wt 105.9 kg
[~2016-12-28 20:20] MED LIST changes: +ADVIN50/60 INH; +ASPEC81 PO; +ATOR-24 PO; -CEPH500C2 PO; -CHOL400T PO; -DLN100 PO; +ERGO500037 PO; +HYDR-4079 PO; -IPRA1AER2 INH; -LEVE500T PO; +LEVE750T PO; -LPR25 PO; +METO25TA56 PO; +PHN/100 PO; -PRED20TA PO; -SODIUM CHLORIDE 0.9% 1000ML 1,000 ML IV SCH; +VNTHFA/IN INH
[2016-12-28] MEDS ORDERED: ACETAMINOPHEN 325 MG TAB PO PRN (22:00)
[2016-12-28] MEDS ORDERED: PHARMACIST DISCHARGE MED REC CONSULT PRN (22:00)
[2016-12-28 22:03] VITALS: BP 111/74; PULSE 99; TEMP 38.4; O2SAT 95
[2016-12-28 22:32] LABS: BASO % 0.2 %; BASO ABS # 0.02 K/uL (0-0.2); EOS % 0.5 %; HEMATOCRIT 31.7 % (37-47); IG% 0.2 %; LYMPH % 13.3 %; LYMPH ABS # 1.12 K/uL (1.2-3.4); MEAN CELL VOLUME 78.3 fL (80-100); MEAN CORPUSCULAR HEMOGLOBIN 23.5 pg (25-34); MEAN PLATELET VOLUME 9.7 fL (7.4-10.4); MONO % 8.2 %; NEUT % 77.6 %; PLATELET COUNT 193 K/uL (130-400); RED BLOOD COUNT 4.05 M/uL (4.2-5.4); WHITE BLOOD COUNT 8.41 K/uL (4.8-10.8)
[2016-12-28 22:35] LABS: COMPLETE YES
[2016-12-28] MEDS: PATIENT'S HEIGHT AND/OR WEIGHT NEEDED SCH ×2 (22:52→23:57)
[2016-12-28 22:55] LABS: ALB/GLOB RATIO 0.8 (0.9-2); ALKALINE PHOSPHATASE 94 U/L (45-117); ALT/SGPT 18 U/L (12-78); AST/SGOT 28 U/L (15-37); BLOOD UREA NITROGEN 9 mg/dl (7-18); BUN/CREATININE RATIO 12.1 (10-20); CALCIUM 8.6 mg/dl (8.5-10.1); CARBON DIOXIDE 26 mmol/L (21-32); CHLORIDE 105 mmol/L (98-107); GLUCOSE 133 mg/dl (70-99); MAGNESIUM 1.7 mg/dl (1.8-2.4); POTASSIUM 3.8 mmol/L (3.5-5.1); SODIUM 137 mmol/L (136-145)
--- NOTE | 2016-12-28 23:22 | History and Physical ---
History & Physical Date & Time of Service: Dec 28, 2016 at 23:22 Chief Complaint: Cva, Left Sided Weakness Primary Care Physician: Fitz Kapoor M.D. History of Present Illness Source: patient, hospital records The patient is a 71-year-old female who has a known history of TIA, seen in the early part of this year is [facility]. She developed the acute onset of left lower extremity weakness about one hour prior to reporting to [facility] emergency department. Examination there in addition revealed decreased left arm and hand shear tender strength. CT of the head without contrast performed today was negative for acute event. She underwent a Neuro Telestroke conference with Dr. Mccauley from [facility], who determined that TPA was not indicated, since her symptoms were improving, they requested that the patient get an MRI. The patient was transferred to [facility] since [facility] does not have the capability of MRI. Upon arrival to [facility], the patient's symptoms had completely resolved. Past Medical/Surgical History Medical Problems: (1) CVA (cerebral vascular accident) Status: Chronic (2) Diabetes Permanent Comment: type 2 Status: Chronic (3) Hx of non-ST elevation myocardial infarction (NSTEMI) Status: Chronic (4) Hypercholesteremia Status: Chronic (5) Seizure disorder Permanent Comment: EEG positive in 04/2014 Status: Chronic Surgical Problems: (1) No significant past surgical history Status: Chronic Family History Unobtainable Social History Smoking Status: Former Smoker Smokeless Tobacco Use: No Alcohol Use: none Drug Use: none Marital Status: Housing status: lives with significant other Occupational Status: unemployed Immunizations History of Influenza Vaccine: Unknown History of Tetanus Vaccine?: Unknown History of Pneumococcal: Unknown History of Hepatitis B Vaccine: Unknown Allergies Coded Allergies: No Known Allergies (Unverified , 12/31/15) unable to obtain allergy info from patient.. -altered mental status Home Medications Scheduled Albuterol Hfa (Ventolin Hfa), 2 PUFFS INH BID Aspirin (Aspirin EC Low Dose), 81 MG PO DAILY Atorvastatin (Lipitor), 40 MG PO DAILY Ergocalciferol (Vitamin D 66109 Unit), 50,000 UNIT PO WK Fluticasone Prop/Salmeterol (Advair Diskus 500/50 60 Dose), 1 PUFF INH BID Hydrocodone/Acetaminophen 10MG/325MG ([place] 10MG/325MG), 1 TAB PO TID Levetiracetam (Keppra), 750 MG PO BID Metoprolol Tartrate (Lopressor) (Lopressor), 25 MG PO BID Montelukast Sodium (Singulair), 10 MG PO DAILY Omeprazole (Prilosec), 20 MG PO DAILY Phenytoin Sodium (Dilantin), 200 MG PO BID Scheduled PRN Meclizine Hcl (Meclizine Hcl), 12.5 MG PO TID PRN for Dizziness or Vertigo Review of Systems The patient, upon arrival at [facility], denies chest pain, palpitations, shortness of breath, cough, lower extremity swelling, vision change, hearing change, sore throat, fevers, chills, sweats, weight change, fatigue, nausea, vomiting, diarrhea or constipation, abdominal pain, pelvic pain, blood in urine or stool, dysuria, urinary frequency or urgency, lightheadedness , dizziness, headache, memory loss, rash, abnormal bruising or bleeding, imbalance, focal or generalized weakness, numbness or tingling in arms or legs, or night sweats. The review of systems is otherwise negative other than for that already noted above, and at least 10 systems have been reviewed. Physical Exam Vital Signs Date Time Temp Pulse Resp B/P (MAP) Pulse Ox O2 Delivery O2 Flow Rate FiO2 12/28/16 22:03 38.4 99 111/74 (86) 95 Room Air The patient is awake, well-developed and adequately nourished, alert and oriented 3, normocephalic and atraumatic, lying in bed and in no acute distress. HEENT--PERRL, EOMI, mucous membranes and oropharynx dry. Neck--supple, no JVD or bruits, thyroid normal, trachea midline, no adenopathy. Heart--normal S1 and S2, no extra beats, no murmurs, rubs or gallops. Lungs--clear bilaterally but overall decreased throughout, no respiratory distress, no accessory muscle use. Abdomen--normal bowel sounds and soft, nontender and nondistended, no hernias or masses, no organomegaly. Extremities--no cyanosis, clubbing or edema. There are good distal pulses b/l. Dermatologic--normal skin turgor, normal color, warm and dry, no abnormal lymph nodes, no rash. Neurologic--cranial nerves II through XII grossly intact, motor and sensory examination normal. Rheumatologic--normal range of motion, nontender, muscles and joints. Psychiatric--normal affect. Diagnostics Laboratory Results Results Past 24 Hours Test 12/28/16 22:11 Range/Units White Blood Count 8.41 4.8-10.8 K/uL Red Blood Count 4.05 4.2-5.4 M/uL Hemoglobin 9.5 12.0-16.0 g/dL Hematocrit 31.7 37-47 % Mean Corpuscular Volume 78.3 80-100 fL Mean Corpuscular Hemoglobin 23.5 25-34 pg Mean Corpuscular Hemoglobin Concent 30.0 32-36 g/dl Platelet Count 193 130-400 K/uL Mean Platelet Volume 9.7 7.4-10.4 fL Neutrophils (%) (Auto) 77.6 % Lymphocytes (%) (Auto) 13.3 % Monocytes (%) (Auto) 8.2 % Eosinophils (%) (Auto) 0.5 % Basophils (%) (Auto) 0.2 % Neutrophils # (Auto) 6.52 1.4-6.5 K/uL Lymphocytes # (Auto) 1.12 1.2-3.4 K/uL Monocytes # (Auto) 0.69 0.11-0.59 K/uL Eosinophils # (Auto) 0.04 0-0.5 K/uL Basophils # (Auto) 0.02 0-0.2 K/uL RDW Standard Deviation 48.5 36.4-46.3 fL RDW Coefficient of Variation 17.3 11.5-14.5 % Immature Granulocyte % (Auto) 0.2 % Immature Granulocyte # (Auto) 0.02 0.00-0.02 K/uL Prothrombin Time 11.0 9.0-12.0 SECONDS Prothromb Time International Ratio 1.0 0.9-1.1 Activated Partial Thromboplast Time 25.6 21.0-31.0 SECONDS Partial Thromboplastin Ratio 1.0 Sodium Level 137 136-145 mmol/L Potassium Level 3.8 3.5-5.1 mmol/L Chloride Level 105 98-107 mmol/L Carbon Dioxide Level 26 21-32 mmol/L Anion Gap 7.0 3-11 mmol/L Blood Urea Nitrogen 9 7-18 mg/dl Creatinine 0.70 0.60-1.20 mg/dl Estimated GFR () 101.7 Estimated GFR (Non- 87.8 BUN/Creatinine Ratio 12.1 10-20 Random Glucose 133 70-99 mg/dl Calcium Level 8.6 8.5-10.1 mg/dl Magnesium Level 1.7 1.8-2.4 mg/dl Total Bilirubin 0.3 0.2-1 mg/dl Aspartate Amino Transf (AST/SGOT) 28 15-37 U/L Alanine Aminotransferase (ALT/SGPT) 18 12-78 U/L Alkaline Phosphatase 94 45-117 U/L Total Protein 7.5 6.4-8.2 gm/dl Albumin 3.4 3.4-5.0 gm/dl Globulin 4.1 2.5-4.0 gm/dl Albumin/Globulin Ratio 0.8 0.9-2 Phenytoin (Dilantin) Level 11.9 10-20 mcg/mL Impression Assessment and Plan TIA/history of CVD/negative Telestroke assessment at [facility]/ recommendation for MRI leading to transfer to [facility]-- The patient will be admitted to telemetry for serial cardiac enzymes, cardiac rhythm monitoring and a 2-D echocardiogram with Dopplers. Order MRI brain combo, MRA neck combo, and MRA of head without contrast. Continue aspirin 81 mg by mouth daily. Continue metoprolol tartrate 25 mg by mouth twice a day. Consult neurology Seizure disorder--continue Keppra 750 mg by mouth twice a day and Dilantin 200 mg by mouth twice a day. Check Keppra and Dilantin levels. Hyperlipidemia-- Continue atorvastatin 40 mg by mouth daily. Asthma-- Continue Singulair 10 mg by mouth daily, Advair Diskus 500/50 one inhalation twice a day, and albuterol HFA 2 puffs twice a day when necessary. GERD--change omeprazole 20 mg by mouth daily to pantoprazole 40 mg by mouth daily. Level of Care Telemetry Advanced Directives Existing Advance Directive: No Existing Living Will: No Existing Power of Bacteriology Teacher: No Resuscitation Status FULL RESUSCITATION VTE Prophylaxis VTE Risk Assessment Done? Y/N: Yes Risk Level: Moderate Given or contraindicated: SCD's Social Service Consult None Apply
[2016-12-28] MEDS ORDERED: MAGNESIUM SULFATE 1GM / D5W 1 GM in PREMIXED IN D5W 100 ML IV STA (23:23)
[2016-12-28] MEDS: FAMOTIDINE IV INJ 20 MG in DEXTROSE 5% 100ML 100 ML IV SCH (23:33)
[2016-12-28] MEDS: NSS + 20MEQ KCL 1000ML 1,000 ML IV SCH (23:33)
[2016-12-28 23:50] VITALS: BP 152/78; PULSE 95; TEMP 38.2; O2SAT 93
[2016-12-29 00:06] VITALS: Ht 160 cm; Wt 105.9 kg
[2016-12-29] MEDS: PATIENT'S HEIGHT AND/OR WEIGHT NEEDED SCH ×2 (00:29→00:30)
[2016-12-29 03:50] LABS: BASO % 0.4 %; BASO ABS # 0.03 K/uL (0-0.2); COMPLETE YES; EOS % 0.9 %; HEMATOCRIT 30.5 % (37-47); IG% 0.3 %; LYMPH % 19.3 %; LYMPH ABS # 1.31 K/uL (1.2-3.4); MEAN CELL VOLUME 78.6 fL (80-100); MEAN CORPUSCULAR HEMOGLOBIN 24.7 pg (25-34); MEAN CORPUSCULAR HGB CONC 31.5 g/dl (32-36); MEAN PLATELET VOLUME 9.5 fL (7.4-10.4); MONO % 8.7 %; NEUT % 70.4 %; PLATELET COUNT 167 K/uL (130-400); RED BLOOD COUNT 3.88 M/uL (4.2-5.4); WHITE BLOOD COUNT 6.78 K/uL (4.8-10.8)
[2016-12-29 04:30] VITALS: BP 145/76; PULSE 88; TEMP 37.3; O2SAT 94
[2016-12-29 04:52] LABS: BLOOD UREA NITROGEN 9 mg/dl (7-18); BUN/CREATININE RATIO 12.5 (10-20); CALCIUM 8.3 mg/dl (8.5-10.1); CARBON DIOXIDE 26 mmol/L (21-32); CHLORIDE 107 mmol/L (98-107); CHOLESTEROL 136 mg/dl (0-200); CHOLESTEROL/HDL RATIO 2.7; CKMB/CK RATIO 1.4 (0-3.0); CREATININE 0.73 mg/dl (0.60-1.20); GLUCOSE 123 mg/dl (70-99); HDL CHOLESTEROL 51 mg/dl; LDL CHOLESTEROL CALCULATED 64 mg/dl; POTASSIUM 4.5 mmol/L (3.5-5.1); SODIUM 140 mmol/L (136-145); TRIGLYCERIDES 106 mg/dl (0-150); VERY LOW DENSITY LIPOPROT CALC 21 mg/dl
[2016-12-29] MEDS ORDERED: LEVETIRACETAM 250 MG TAB PO SCH (09:00)
[2016-12-29] MEDS ORDERED: METOPROLOL TARTRATE 25 MG TAB PO SCH (09:00)
[2016-12-29] MEDS ORDERED: MONTELUKAST SOD 10 MG TAB PO SCH (09:00)
[2016-12-29] MEDS ORDERED: ATORVASTATIN 40 MG TAB PO SCH (09:00)
[2016-12-29] MEDS ORDERED: ENOXAPARIN 40 MG/0.4 ML SYR SC SCH (09:00)
[2016-12-29] MEDS ORDERED: ASPIRIN 81 MG ECTAB PO SCH (09:00)
[2016-12-29] MEDS ORDERED: PHENYTOIN SODIUM ER 100 MG CAP PO SCH (09:00)
[2016-12-29] MEDS: FAMOTIDINE IV INJ 20 MG in DEXTROSE 5% 100ML 100 ML IV SCH (10:07)
[2016-12-29 10:30] LABS: FERRITIN 14.8 ng/ml (8.0-388.0); THYROID STIMULATING HORMONE 0.609 uIu/ml (0.300-4.500)
--- NOTE | 2016-12-29 10:56 | DIAGNOSTIC IMAGING REPORT ---
CHEST ONE VIEW PORTABLE HISTORY: 71 years-old Female fever acute fever. Initial exam COMPARISON: Chest radiograph 12/31/2015 TECHNIQUE: Portable upright AP view of the chest FINDINGS: Cardiac silhouette is within normal limits. No pneumothorax, pleural effusion or lobar airspace consolidation. Linear subsegmental left basilar opacity is redemonstrated suggesting atelectasis/scarring. Bones are grossly intact. IMPRESSION: 1. No acute cardiopulmonary process. 2. Unchanged subsegmental linear left basilar atelectasis or scarring. The above report was generated using voice recognition software. It may contain grammatical, syntax or spelling errors. Electronically signed by: German Rm M.D. 12/29/2016 10:54 AM Dictated Date/Time: 12/29/2016 10:53 AM
[2016-12-29] MEDS: NSS + 20MEQ KCL 1000ML 1,000 ML IV SCH (11:47)
[2016-12-29 12:04] VITALS: BP 108/58; PULSE 73; TEMP 37.4; O2SAT 92
--- NOTE | 2016-12-29 12:26 | Neurology Consultation ---
Neurology Consultation Date of Consultation: Dec 29, 2016. Attending Physician: Wendy Wu MD Primary Care Physician: Fitz Kapoor M.D. Reason for Consultation: Patient is a 71-year-old, who was asked to see the request of Dr. Pan, for neurologic consultation regarding possible stroke History of Present Illness Source: patient, clinic records, hospital records Patient has a history of seizure disorder dating back to review 19 years, secondary to a head injury. She has been on Dilantin since her teen years. More recently Keppra was added. For saw this patient in April of 2014 for an unresponsive episode. EEG showed focal right frontotemporal seizure activity. There are old left temporal sharp waves as well. MRI of the brain at that time showed no new changes. In December of 2014 she had another unresponsive episode MRI showed a possible new right medial temporal lobe stroke. Echocardiogram was unremarkable. It was clear that she was not compliant with her anticonvulsant medications. The February of 2015 she had jerking of all 4 of her limbs for 15 minutes and was unresponsive. She ended up getting tPA after tele stroke consult an MRI of the brain showed no new stroke. There was generalized atrophy and old small vessel ischemic changes similar to the previous MRI. She did not return to follow-up. In March of 2016 she had an episode of involuntary movements in the left upper extremity. The leg was affected some also. Her speech may have been slurred but had no loss of consciousness. She was given tPA in the emergency room. Her symptoms resolved an MRI of the brain showed no new stroke or hemorrhage. The old small vessel ischemic changes were similar to the previous study and MR angiography of the head neck were unremarkable. Patient states that she is fairly compliant with her medication and may have had a seizure 2 months ago. Yesterday, after grocery shopping she was home sitting when she had the onset of left lower extremity and right upper extremity shaking. She was awakened could recall this. She went to the [facility] Emergency room in a tele stroke was performed but no tPA was given. Her symptoms had essentially resolved by the time she got there in the evening. Once again, the patient tells me that at the was her right arm and left leg that were shaking but not in pain and not necessarily weak. Reports from the ER at [facility] states that her left leg was weak. There was no report of seizure activity. She arrived at our hospital at 2203 hours with a temperature 38.4, pulse 99 and regular, blood pressure 111/74 and O2 saturation 95 percent. Chest x-ray was unremarkable. Neurologic examination was largely unremarkable without focal findings either. Past Medical/Surgical History Medical Problems: (1) Hypoxia Status: Acute (2) S/P administration of tPA (rtPA) in a different facility within the last 24 hours prior to admission to current facility Status: Acute Hypertension Diabetes Dyslipidemia Epilepsy on Keppra and Dilantin The denies prior surgery although she has a left carpal tunnel syndrome repair scar. Family History Patient is adopted and there is no record of her biological parents medical history. Social History Patient quit cigarette smoking in 1991. She does not use alcohol. She has never been employed. She lives with her . Smoking Status: Former smoker Smokeless Tobacco Use: No Alcohol Use: none Drug Use: none Marital Status: Housing Status: lives with significant other Occupation Status: unemployed Allergies Coded Allergies: No Known Allergies (Unverified , 12/31/15) unable to obtain allergy info from patient.. -altered mental status Current Inpatient Medications Current Inpatient Medications Medications (Trade) Dose Ordered Sig/Mabel Route Start Time Stop Time Status Last Admin Dose Admin Atorvastatin Calcium (Lipitor Tab) 40 mg QAM PO 12/29/16 09:00 01/28/17 08:59 12/29/16 08:07 40 MG Aspirin (Ecotrin Tab) 81 mg QAM PO 12/29/16 09:00 01/28/17 08:59 12/29/16 08:06 81 MG Miscellaneous Information (Pharmacist Discharge Med Rec Consult) 1 ea UD PRN N/A 12/28/16 22:00 01/27/17 21:59 Enoxaparin Sodium (Lovenox Inj) 40 mg Q24H SC 12/29/16 09:00 01/28/17 08:59 12/29/16 08:09 40 MG Potassium Chloride/Sodium Chloride 1,000 ml @ 100 mls/hr Q10H IV 12/28/16 21:48 01/27/17 21:47 12/29/16 11:47 100 MLS/HR Acetaminophen (Tylenol Tab) 650 mg Q4H PRN PO 12/28/16 22:00 01/27/17 21:59 12/29/16 10:07 650 MG Levetiracetam (Keppra Tab) 750 mg BID PO 12/29/16 09:00 01/28/17 08:59 12/29/16 08:05 750 MG Metoprolol Tartrate (Lopressor Tab) 25 mg BID PO 12/29/16 09:00 01/28/17 08:59 12/29/16 08:06 25 MG Montelukast Sodium (Singulair Tab) 10 mg DAILY PO 12/29/16 09:00 01/28/17 08:59 12/29/16 08:07 10 MG Phenytoin Sodium (Dilantin Er Cap) 200 mg BID PO 12/29/16 09:00 01/28/17 08:59 12/29/16 08:08 200 MG Famotidine 20 mg/ Dextrose 102 ml @ 200 mls/hr Q12H IV 12/28/16 22:00 01/27/17 21:59 12/29/16 10:07 200 MLS/HR Review of Systems Constitutional: No weakness, No fatigue Eyes: No worsening of vision, No diplopia ENT: No hearing loss, No tinnitus Respiratory: No cough, No shortness of breath Cardiovascular: No chest pain, No palpitations Abdomen: No pain, No nausea Musculoskeletal: No joint pain, No muscle pain Genitourinary - Female: No dysuria, No urinary incontinence Neurologic: No memory loss, No weakness, No numbness/tingling, No balance problems Psychiatric: No depression symptoms, No anxiety Endocrine: No fatigue Hematologic / Lymphatic: No abnormal bleeding/bruising Integumentary: No rash Allergic / Immunologic: No hives Physical Exam Vital Signs (Past 24 Hrs): Date Time Temp Pulse Resp B/P (MAP) Pulse Ox O2 Delivery O2 Flow Rate FiO2 12/29/16 12:04 37.4 73 18 108/58 (75) 92 Room Air 12/29/16 11:46 Room Air 12/29/16 08:00 Room Air 12/29/16 04:54 Room Air 12/29/16 04:30 37.3 88 20 145/76 (99) 94 Room Air 12/29/16 00:06 Room Air 12/28/16 23:50 38.2 95 20 152/78 (102) 93 Room Air 12/28/16 22:03 38.4 99 111/74 (86) 95 Room Air Patient is right-handed. The patient is awake and alert. Speech is normal without obvious aphasia or dysarthria. Mentation and thought processes seem intact with orientation and fund of knowledge. Mood and affect are normal and appropriate. Appearance and grooming are unremarkable. The disc is sharp on the right with positive venous pulsations. The left cannot be visualized she is opacified and blind in that eye. Pupil is 4mm on the right and reactive to light. Extraocular eye muscles on the right are intact without nystagmus. Visual acuity and visual haines seem normal grossly to confrontation in the right eye. There are no deficits to sensation of the face bilaterally. Corneal reflexes are positive bilaterally. Facial strength and symmetry is normal bilaterally. Hearing seems intact grossly to voice and finger rub. Palate moves well without asymmetry. There is normal sternocleidomastoid and trapezius strength bilaterally. Tongue is midline with good strength bilaterally. She has poor dentition. Neck is with full range of motion without discomfort. There are no cervical bruits. There are no cranial or ocular bruits. Heart is without murmur. Cervical, thoracic, and lumbar spine are nontender to palpation. Gait is not specifically tested but her stance is normal and she can sit and dangle her legs over the bed well With outstretched arms there is no drift. There are no resting, postural, or action tremors. There is no ataxia with [id number] testing. There is good facility in the hands. There are no abnormal involuntary movements noted. Motor strength is 5/5 diffusely in the arms bilaterally including deltoids, biceps, brachioradialis, wrist flexors and extensors, retrieval specialist, and intrinsic hand muscles. Motor strength is 5/5 diffusely in the legs bilaterally including hip flexors, quadriceps, hamstring, gastrocnemius, tibialis anterior, tibialis posterior, and peroneii muscles bilaterally. Toe extensors are normal and there is good bulk in the extensor digitorum brevis muscle bilaterally. The limbs have good tone without rigidity or spasticity, and there is no atrophy noted. Muscle bulk is normal, there is no tenderness, no myotonia noted to percussion, and no fasciculations seen. Sensory examination is intact to pin and touch throughout all four limbs. Reflexes are 1/4 in the biceps, triceps, brachioradialis, quadriceps, and Achilles tendons bilaterally. Toes are downgoing with plantar stimulation bilaterally. Peripheral pulses are present and of normal quality distally in all four limbs. There is no peripheral edema noted. Laboratory Results Past 24 Hours: 12/29/16 03:37 Red Blood Count 3.88, Mean Corpuscular Volume 78.6, Mean Corpuscular Hemoglobin 24.7, Mean Corpuscular Hemoglobin Concent 31.5, Mean Platelet Volume 9.5, Neutrophils (%) (Auto) 70.4, Lymphocytes (%) (Auto) 19.3, Monocytes (%) (Auto) 8.7, Eosinophils (%) (Auto) 0.9, Basophils (%) (Auto) 0.4, Neutrophils # (Auto) 4.77, Lymphocytes # (Auto) 1.31, Monocytes # (Auto) 0.59, Eosinophils # (Auto) 0.06, Basophils # (Auto) 0.03 12/29/16 03:37 Test 12/28/16 22:11 12/29/16 03:37 12/29/16 08:34 12/29/16 08:37 Prothrombin Time 11.0 SECONDS (9.0-12.0) Prothromb Time International Ratio 1.0 (0.9-1.1) Activated Partial Thromboplast Time 25.6 SECONDS (21.0-31.0) Partial Thromboplastin Ratio 1.0 Estimated Average Glucose 128 mg/dl Hemoglobin A1c 6.1 % (4.5-5.6) Magnesium Level 1.7 mg/dl (1.8-2.4) Total Bilirubin 0.3 mg/dl (0.2-1) Aspartate Amino Transf (AST/SGOT) 28 U/L (15-37) Alanine Aminotransferase (ALT/SGPT) 18 U/L (12-78) Alkaline Phosphatase 94 U/L (45-117) Total Protein 7.5 gm/dl (6.4-8.2) Albumin 3.4 gm/dl (3.4-5.0) Globulin 4.1 gm/dl (2.5-4.0) Albumin/Globulin Ratio 0.8 (0.9-2) Phenytoin (Dilantin) Level 11.9 mcg/mL (10-20) White Blood Count 6.78 K/uL (4.8-10.8) Red Blood Count 3.88 M/uL (4.2-5.4) Hemoglobin 9.6 g/dL (12.0-16.0) Hematocrit 30.5 % (37-47) Mean Corpuscular Volume 78.6 fL (80-100) Mean Corpuscular Hemoglobin 24.7 pg (25-34) Mean Corpuscular Hemoglobin Concent 31.5 g/dl (32-36) Platelet Count 167 K/uL (130-400) Mean Platelet Volume 9.5 fL (7.4-10.4) Neutrophils (%) (Auto) 70.4 % Lymphocytes (%) (Auto) 19.3 % Monocytes (%) (Auto) 8.7 % Eosinophils (%) (Auto) 0.9 % Basophils (%) (Auto) 0.4 % Neutrophils # (Auto) 4.77 K/uL (1.4-6.5) Lymphocytes # (Auto) 1.31 K/uL (1.2-3.4) Monocytes # (Auto) 0.59 K/uL (0.11-0.59) Eosinophils # (Auto) 0.06 K/uL (0-0.5) Basophils # (Auto) 0.03 K/uL (0-0.2) RDW Standard Deviation 48.5 fL (36.4-46.3) RDW Coefficient of Variation 17.3 % (11.5-14.5) Immature Granulocyte % (Auto) 0.3 % Immature Granulocyte # (Auto) 0.02 K/uL (0.00-0.02) Anion Gap 7.0 mmol/L (3-11) Est Creatinine Clear Calc Drug Dose 84.6 ml/min Estimated GFR () 96.7 Estimated GFR (Non- 83.4 BUN/Creatinine Ratio 12.5 (10-20) Calcium Level 8.3 mg/dl (8.5-10.1) Triglycerides Level 106 mg/dl (0-150) Cholesterol Level 136 mg/dl (0-200) HDL Cholesterol 51 mg/dl LDL Cholesterol, Calculated 64 mg/dl VLDL Cholesterol, Calculated 21 mg/dl Cholesterol/HDL Ratio 2.7 Test 12/29/16 09:33 12/29/16 11:37 Iron Level 51 mcg/dl (35-150) Total Iron Binding Capacity 336 mcg/dl (250-450) Transferrin 249 mg/dl (200-360) Transferrin % Saturation 15 % (15-50) Ferritin 14.8 ng/ml (8.0-388.0) Vitamin B12 Level 322 pg/mL (211-911) Folate 10.12 ng/mL (>5.38) Thyroid Stimulating Hormone (TSH) 0.609 uIu/ml (0.300-4.500) Creatine Kinase MB Ratio (0-3.0) Impression 1. The events of December 28 are noted. The history she gives me is not consistent with stroke or seizure. She tells me that she had right upper and left lower extremity shaking while being awake and alert. This is not consistent with a seizure disorder. There was some history of left leg weakness at the [facility] Emergency room but she is currently without focal neurologic findings or anything suggestive of a new stroke. She has no meningeal signs and no new encephalopathy. She certainly has risk factors for stroke including diabetes, hypertension, and dyslipidemia. She does have old small vessel ischemic changes and is on aspirin. 2. 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 Fairly well controlled on Dilantin and Keppra. Dilantin level is low normal at 11.9. Keppra level is pending. 3. Chronic cerebral ischemia seen on MRI in the past. 4. 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 Plan 1. I think it is reasonable to obtain an MRI of the brain to look for a new stroke. 2. I do not believe the patient needs MR angiography of the head or neck. Carotid ultrasound is reasonable. 3. I see no need to change her anticonvulsant dosages at this time and I would keep Dilantin and Keppra the same. 4. Depending on the results of the MRI I would keep the 81 milligram aspirin tablet the same as well.
[2016-12-29 12:33] LABS: CKMB/CK RATIO 1.1 (0-3.0)
--- NOTE | 2016-12-29 12:41 | ECHOCARDIOGRAM REPORT ---
*NOTICE TO RECEIVING [employer] AGENCY This information is strictly Confidential and protected under [place] law. [place] law prohibits you from making any further disclosure of this information unless further disclosure is expressly permitted by the written consent of the person to whom it pertains or is authorized by law. A general authorization for the release of medical or other information is not sufficient for this purpose. Hospital accepts no responsibility if the information is made available to any other person, INCLUDING THE PATIENT. Interpretation Summary * Name: JAMES BILLINGS Study Date: 12/29/2016 09:26 AM BP: 145/76 mmHg * Patient Location: C.2T\S\S232\S\1 HR: 73 * : 1945 (M/d/yyyy) Gender: Female Height: 62 in * Age: 71 yrs Ethnicity: CA Weight: 231 lb * Ordering Physician: Christian Pan * Referring Physician: Shin Arriaga * Performed By: Gayathri Mauro RCS * * Reason For Study: CEREBRAL ISCHEMIA / EMBOLUS * BSA: 2.0 m2 * Normal biventricular systolic function. * Moderate concentric left ventricular hypertrophy. * Left ventricular diastolic dysfunction. * Normal chamber dimensions. * Mild aortic stenosis. * Traca aortic, mitral,and tricuspid regurgitation. * The study was technically difficult. * No cardiac source of emboli noted. Procedure Details * A complete two-dimensional transthoracic echocardiogram was performed (2D, M-mode, Doppler and color flow Doppler). Left Ventricle * The left ventricle is normal in size. * There is moderate concentric left ventricular hypertrophy. * Left ventricular systolic function is normal. * Ejection Fraction = 65-70%. * A full diastolic examination was done with clinical findings of Class I diastolic dysfunction. * The left ventricular wall motion is normal. * No regional wall motion abnormalities noted. Right Ventricle * The right ventricle is normal in size and function. Atria * The left atrial size is normal. * Right atrial size is normal. * No ASD detected; PFO is not assessed. Mitral Valve * There is mild mitral annular calcification. * There is no mitral valve stenosis. * There is trace mitral regurgitation. Tricuspid Valve * The tricuspid valve is not well visualized. * There is no tricuspid stenosis. * There is trace tricuspid regurgitation. * Right ventricular systolic pressure is normal. Aortic Valve * The aortic valve is not well visualized. * Mild valvular aortic stenosis. * Aortic valve area was calculated at 1.6 cm\S\2 using the continuity equation. * Trace aortic regurgitation. Pulmonic Valve * The pulmonic valve is not well visualized. * The pulmonary valve is inadequately visualized, but the Doppler data is adequate for interpretation. * Pulmonic stenosis is absent. * There is no significant pulmonary regurgitation. Great Vessels * The aortic root is normal size. Pericardium/Pleural * There is no pericardial effusion. Great Vessels * The inferior vena cava is mildly dilated. MMode 2D Measurements and Calculations IVSd 1.4 cm IVSs 1.5 cm LVIDd 4.5 cm LVIDs 2.7 cm LVPWd 1.4 cm LVPWs 1.4 cm IVS/LVPW 0.99 FS 38.9 % EDV(Teich) 90.8 ml ESV(Teich) 27.8 ml EF(Teich) 69.5 % EDV(cubed) 89.1 ml ESV(cubed) 20.3 ml EF(cubed) 77.2 % % IVS thick 7.7 % % LVPW thick 0.94 % LV mass(C)d 236.9 grams LV mass(C)dI 116.6 grams/m\S\2 LV mass(C)s 128.3 grams LV mass(C)sI 63.1 grams/m\S\2 SV(Teich) 63.1 ml SI(Teich) 31.0 ml/m\S\2 SV(cubed) 68.8 ml SI(cubed) 33.8 ml/m\S\2 Ao root diam 2.5 cm Ao root area 5.1 cm\S\2 ACS 1.8 cm LA dimension 3.7 cm LA/Ao 1.4 LVOT diam 2.0 cm LVOT area 3.1 cm\S\2 Doppler Measurements and Calculations MV E max justen 86.8 cm/sec MV A max justen 103.5 cm/sec MV E/A 0.84 MV P1/2t max justen 105.9 cm/sec MV P1/2t 77.7 msec MVA(P1/2t) 2.8 cm\S\2 MV dec slope 399.5 cm/sec\S\2 MV dec time 0.23 sec Ao V2 max 202.0 cm/sec Ao max PG 16.3 mmHg Ao max PG (full) 12.1 mmHg ESTELA(V,A) 1.6 cm\S\2 ESTELA(V,D) 1.6 cm\S\2 LV V1 max PG 4.2 mmHg LV V1 max 102.5 cm/sec TR max justen 196.6 cm/sec
[2016-12-29] MEDS ORDERED: GADAVIST IV PRN (14:00)
--- NOTE | 2016-12-29 14:10 | DIAGNOSTIC IMAGING REPORT ---
BRAIN COMBO HISTORY: 71 years-old Female Stroke acute strokelike symptoms. COMPARISON: CT head 03/30/2016, MRI brain 03/30/2016 TECHNIQUE: Multiplanar multisequence MRI the brain was obtained both with and without the use of 10 mL Gadavist FINDINGS: No restricted diffusion to suggest acute ischemia. The midline structures including the corpus callosum, brainstem, optic chiasm and pituitary and pineal glands are unremarkable in the sagittal T1 sequence. No cerebellar tonsillar herniation. Degenerative changes are seen about the cervical spine. No acute intracranial hemorrhage, midline shift, hydrocephalus or abnormal extra-axial collections. Mild to moderate atrophy with background chronic microvascular ischemic changes are redemonstrated which appear generally unchanged from 03/30/2016. No abnormal enhancement identified. No intra-axial or extra-axial mass identified. The major flow voids at the level of the skull base appear patent. 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 Mastoid air cells and paranasal sinuses are generally clear. IMPRESSION: 1. No acute intracranial abnormality. No acute ischemia or abnormal enhancement. 2. Chronic changes as above. The above report was generated using voice recognition software. It may contain grammatical, syntax or spelling errors. Electronically signed by: German Rm M.D. 12/29/2016 2:09 PM Dictated Date/Time: 12/29/2016 2:02 PM
--- NOTE | 2016-12-29 14:20 | DIAGNOSTIC IMAGING REPORT ---
MRA HEAD WITHOUT CONTRAST HISTORY: 71 years-old Female Stroke - Attention to [place] acute strokelike symptoms. COMPARISON: MRI brain of same day, MRA head 03/30/2016 TECHNIQUE: MR angiography of the head was obtained without contrast. 3-D MIP reformats were obtained and submitted for review. FINDINGS: Motion degradation. The visualized intracranial internal carotid arteries, middle cerebral arteries and anterior cerebral arteries are patent. The bilateral vertebral arteries, basilar and posterior cerebral arteries are also patent. No high-grade stenosis, aneurysm or proximal branch occlusion identified. IMPRESSION: Motion degradation. No high-grade stenosis, proximal branch occlusion or aneurysm identified. The above report was generated using voice recognition software. It may contain grammatical, syntax or spelling errors. Electronically signed by: German Rm M.D. 12/29/2016 2:18 PM Dictated Date/Time: 12/29/2016 2:13 PM
[2016-12-29 15:48] VITALS: BP 147/72; PULSE 78; TEMP 36.9; O2SAT 94
--- NOTE | 2016-12-29 17:05 | DIAGNOSTIC IMAGING REPORT ---
MRA NECK COMBO CLINICAL HISTORY: 71 years-old Female with Stroke. Acute strokelike symptoms COMPARISON STUDY: MRA head of same day, MRA neck 03/30/2016. TECHNIQUE: Axial 3-D [id number] MR angiography of the neck is performed. Subsequently, following the IV administration of 10 cc of Magnevist coronal MR angiogram of the neck was performed to corroborate the findings. 3-D reformats are created and assessed. All measurements were calculated based on NASCET criteria. FINDINGS: Mild motion degradation. The aortic arch is not imaged on the 3-D [id number] sequences. The imaged bilateral common and internal carotid arteries appear patent. The left vertebral artery is dominant. Bilateral vertebral arteries are patent. Image subclavian arteries appear patent. Mild luminal narrowing of the proximal right ICA at the level of the carotid bulb (image 1 of series 1801). No high-grade stenosis, proximal branch occlusion or aneurysm identified. IMPRESSION: 1. No high-grade stenosis, proximal branch occlusion or aneurysm identified. 2. Mild less than 50% luminal narrowing of the proximal right ICA at the level of the carotid bulb, likely secondary to atherosclerotic plaquing. The above report was generated using voice recognition software. It may contain grammatical, syntax or spelling errors. Electronically signed by: German Rm M.D. 12/29/2016 5:04 PM Dictated Date/Time: 12/29/2016 2:35 PM
[2016-12-29] MEDS ORDERED: PHN/100 PO (17:32)
[2016-12-29] MEDS ORDERED: FRRS300 PO (17:39)
--- NOTE | 2016-12-29 17:42 | Discharge Instructions ---
Discharge Instructions Date of Service Dec 29, 2016. Admission Reason for Admission: Right sided shaking, rule out stroke Discharge Discharge Diagnosis / Problem: Right sided shaking, suspect TIA vs Partial complex seizure Discharge Goals Goal(s): Improve disease control, Diagnostic testing, Therapeutic intervention Activity Recommendations Activity Limitations: resume your previous activity Exercise/Sports Limitations: gradually increase as tolerated Shower/Bathe: no limitations . Instructions / Follow-Up Instructions / Follow-Up You were admitted for your RIGHT-sided arm and leg shaking. You had testing to make sure you did not have a stroke. This was all normal-YOU DID NOT HAVE A STROKE. You may have had a TIA ("mini stroke") that came and went away quickly; but this may have also been a seizure. The Neurologist recommended increasing your Dilantin dose to 200mg in the morning and 300mg in the evening. Please have your phenytoin (Dilantin) level checked with blood work in 2 weeks. You may follow up with Dr. Estes, the [facility] Neurologist within 2-3 weeks. Please see your family doctor within 1-2 weeks. Incidentally, you were found to be anemic (iron deficient). You should start taking an iron pill once daily and have your family doctor follow up on this. Risk Factors for Stroke: You can reduce your chances of stroke by working with your medical provider to adopt a healthy lifestyle. Some specific ways to lower your chance of stroke are: * If you are a smoker, now is the time to stop smoking cigarettes * If you are diabetic, improve the control of your blood sugars * Avoid excessive amounts of alcohol * Control high blood pressure * Lose weight if you are overweight * Be sure to lead an active lifestyle * Eat a healthy diet low in salt, cholesterol and fat You should know about other risk factors for stroke that you are unable to control. These include: * Age 55 years or older * Male gender * Certain racial groups: , or / * Family History of Stroke, Mini stroke or Heart Attack * Sickle Cell Disease Follow Up: It is important for you to keep your follow up appointments with your medical provider. Current Hospital Diet Patient's current hospital diet: AHA Diet (Heart Healthy) Discharge Diet Recommended Diet: AHA Diet (Heart Healthy) Procedures Procedures Performed: Brain MRI Head and Neck MRA ECHO Chest xray Pending Studies Studies pending at discharge: no Laboratory Results Last 24 Hours Test 12/28/16 22:11 12/29/16 03:37 12/29/16 09:33 12/29/16 11:37 White Blood Count 8.41 K/uL 6.78 K/uL Red Blood Count 4.05 M/uL 3.88 M/uL Hemoglobin 9.5 g/dL 9.6 g/dL Hematocrit 31.7 % 30.5 % Mean Corpuscular Volume 78.3 fL 78.6 fL Mean Corpuscular Hemoglobin 23.5 pg 24.7 pg Mean Corpuscular Hemoglobin Concent 30.0 g/dl 31.5 g/dl Platelet Count 193 K/uL 167 K/uL Mean Platelet Volume 9.7 fL 9.5 fL Neutrophils (%) (Auto) 77.6 % 70.4 % Lymphocytes (%) (Auto) 13.3 % 19.3 % Monocytes (%) (Auto) 8.2 % 8.7 % Eosinophils (%) (Auto) 0.5 % 0.9 % Basophils (%) (Auto) 0.2 % 0.4 % Neutrophils # (Auto) 6.52 K/uL 4.77 K/uL Lymphocytes # (Auto) 1.12 K/uL 1.31 K/uL Monocytes # (Auto) 0.69 K/uL 0.59 K/uL Eosinophils # (Auto) 0.04 K/uL 0.06 K/uL Basophils # (Auto) 0.02 K/uL 0.03 K/uL RDW Standard Deviation 48.5 fL 48.5 fL RDW Coefficient of Variation 17.3 % 17.3 % Immature Granulocyte % (Auto) 0.2 % 0.3 % Immature Granulocyte # (Auto) 0.02 K/uL 0.02 K/uL Prothrombin Time 11.0 SECONDS Prothromb Time International Ratio 1.0 Activated Partial Thromboplast Time 25.6 SECONDS Partial Thromboplastin Ratio 1.0 Sodium Level 137 mmol/L 140 mmol/L Potassium Level 3.8 mmol/L 4.5 mmol/L Chloride Level 105 mmol/L 107 mmol/L Carbon Dioxide Level 26 mmol/L 26 mmol/L Anion Gap 7.0 mmol/L 7.0 mmol/L Blood Urea Nitrogen 9 mg/dl 9 mg/dl Creatinine 0.70 mg/dl 0.73 mg/dl Estimated GFR () 101.7 96.7 Estimated GFR (Non- 87.8 83.4 BUN/Creatinine Ratio 12.1 12.5 Random Glucose 133 mg/dl 123 mg/dl Estimated Average Glucose 128 mg/dl Hemoglobin A1c 6.1 % Calcium Level 8.6 mg/dl 8.3 mg/dl Magnesium Level 1.7 mg/dl Total Bilirubin 0.3 mg/dl Aspartate Amino Transf (AST/SGOT) 28 U/L Alanine Aminotransferase (ALT/SGPT) 18 U/L Alkaline Phosphatase 94 U/L Total Protein 7.5 gm/dl Albumin 3.4 gm/dl Globulin 4.1 gm/dl Albumin/Globulin Ratio 0.8 Phenytoin (Dilantin) Level 11.9 mcg/mL Est Creatinine Clear Calc Drug Dose 84.6 ml/min Total Creatine Kinase 212 U/L 327 U/L Creatine Kinase MB 2.9 ng/ml 3.6 ng/ml Creatine Kinase MB Ratio 1.4 1.1 Troponin I < 0.015 ng/ml < 0.015 ng/ml Triglycerides Level 106 mg/dl Cholesterol Level 136 mg/dl HDL Cholesterol 51 mg/dl LDL Cholesterol, Calculated 64 mg/dl VLDL Cholesterol, Calculated 21 mg/dl Cholesterol/HDL Ratio 2.7 Iron Level 51 mcg/dl Total Iron Binding Capacity 336 mcg/dl Transferrin 249 mg/dl Transferrin % Saturation 15 % Ferritin 14.8 ng/ml Vitamin B12 Level 322 pg/mL Folate 10.12 ng/mL Thyroid Stimulating Hormone (TSH) 0.609 uIu/ml Chemistry Specimen Hemolysis Test 12/29/16 16:59 Hemoglobin A1c Test 12/28/16 22:11 Range/Units Estimated Average Glucose 128 mg/dl Hemoglobin A1c 6.1 H 4.5-5.6 % Lipid Panel Test 12/29/16 03:37 Range/Units Triglycerides Level 106 0-150 mg/dl Cholesterol Level 136 0-200 mg/dl HDL Cholesterol 51 mg/dl Cholesterol/HDL Ratio 2.7 LDL Cholesterol, Calculated 64 mg/dl Medical Emergencies . Who to Call and When: Medical Emergencies: Call 911 immediately if you experience any of the following warning signs and symptoms of Stroke: * Sudden numbness or weakness of the face, arm or leg, especially on one side of the body * Sudden confusion, trouble speaking or understanding * Sudden trouble seeing in one or both eyes * Sudden trouble walking, dizziness, loss of balance or coordination * Sudden severe headache with no cause Do not delay calling 911 if you experience any warning signs or symptoms of a stroke. Delay in seeking medical attention may affect what treatments can be given to you. . Non-Emergent Contact Non-Emergency issues call your: Primary Care Provider . . "Provider Documentation" section prepared by Wendy Wu. . Stroke Core Measures Reason no t-PA for Stroke: Treatment not indicated Reason no antithrom by day 2: Treatment provided - N/A Reason no antithrom at D/C: Treatment provided - N/A Reason no statin at D/C: Treatment provided - N/A Reason no anticoag w/a fib: Treatment not indicated VTE Core Measure Inpt VTE Proph given/why not?: Enoxaparin (Lovenox)SQ, SCD's
[2016-12-29 17:52] VITALS: BP 147/72; PULSE 78; TEMP 36.9; O2SAT 94
--- NOTE | 2017-01-02 13:52 | Discharge Summary ---
Discharge Summary Date of Service Dec 29, 2016. Discharge Summary Admission Date: Dec 28, 2016 at 21:48 Discharge Date: Dec 29, 2016 Discharge Disposition: Home Principal Diagnosis: Suspected TIA vs Partial Complex Seizure Problems/Secondary Diagnoses: H/O CVA Diabetes mellitus II Hx of non-ST elevation myocardial infarction (NSTEMI) CAD Hypercholesteremia Seizure disorder Hypertension Epilepsy on Keppra and Dilantin Asthma GERD Mild aortic stenosis Chronic diastolic CHF Obesity Former smoker Immunizations: Have You Had Influenza Vaccine: Unknown History of Tetanus Vaccine?: Unknown History of Pneumococcal: Unknown History of Hepatitis B Vaccine: Unknown Procedures: ECHO: * Normal biventricular systolic function. * Moderate concentric left ventricular hypertrophy. * Left ventricular diastolic dysfunction. * Normal chamber dimensions. * Mild aortic stenosis. * Traca aortic, mitral,and tricuspid regurgitation. * The study was technically difficult. * No cardiac source of emboli noted. Brain MRI Head and Neck MRA ECHO Chest xray Consultations: Neurology Medication Reconciliation New Medications: Ferrous Sulfate (Ferrous Sulfate) 325 Mg Tab 325 MG PO DAILY for 30 Days Changed Medications: Phenytoin Sodium (Dilantin) 100 Mg Cap 200 MG PO QAM for 30 Days, #150 CAP (Changed from: BID; EXTENDED RELEASE) AND TAKE 300mg in evening (EXTENDED RELEASE) Continued Medications: Albuterol Hfa (Ventolin Hfa) 200 Puffs/07600 Mcg Aers 2 PUFFS INH BID, #1 INHALER Aspirin (Aspirin EC Low Dose) 81 Mg Ectab 81 MG PO DAILY for 30 Days, #30 TABS 2 Refills with food Atorvastatin (Lipitor) 40 Mg Tab 40 MG PO DAILY, TAB Ergocalciferol (Vitamin D 36263 Unit) 50,000 Unit Cap 99940 UNIT PO WK, CAP Fluticasone Prop/Salmeterol (Advair Diskus 500/50 60 Dose) 1 Ea Aerp 1 PUFF INH BID, INHALER Hydrocodone/Acetaminophen 10MG/325MG ([place] 10MG/325MG) Tab 1 TAB PO TID for 10 Days PRN PAIN Levetiracetam (Keppra) 750 Mg Tab 750 MG PO BID, TAB START 03/21/16 Meclizine Hcl (Meclizine Hcl) 12.5 Mg Tab 12.5 MG PO TID PRN for Dizziness or Vertigo Metoprolol Tartrate (Lopressor) (Lopressor) 25 Mg Tab 25 MG PO BID, TAB Montelukast Sodium (Singulair) 10 Mg Tab 10 MG PO DAILY, TAB Omeprazole (Prilosec) 20 Mg Cap 20 MG PO DAILY, CAP Discharge Exam Pt feels great, no problems. Upon further questioning and many clarifications, pt does describe she had RUE and RLE shaking after a brief staring spell yesterday. Those symptoms are what brought her to the ER in [place]. She had a fever last night but denies any other acute symptoms, no urinary sxs, no cough , no sore throat, no headache except when had the fever, but now gone. No cough , no chest pain. No events on tele. Anxious to go home. Discussed case with Neuro and will increase Dilantin to 200mg/300mg and check a level in 2 weeks. Review of Systems: Constitutional: + fever Eyes: No problem reported ENT: No sore throat Respiratory: No cough Cardiovascular: No chest pain Abdomen: No pain, No nausea, No vomiting, No diarrhea Musculoskeletal: No problem reported Genitourinary - Female: No dysuria, No urinary frequency, No urinary urgency , No problem reported Neurologic: No problem reported Psychiatric: No problem reported Endocrine: No problem reported Hematologic / Lymphatic: No problem reported Integumentary: No problem reported Physical Exam: General Appearance: WD/WN, no apparent distress Eyes: sclerae normal, + pertinent finding (exophthalmos) ENT: hearing grossly normal, pharynx normal Neck: trachea midline Respiratory/Chest: lungs clear, normal breath sounds, no respiratory distress, no accessory muscle use Cardiovascular: regular rate, rhythm, no edema, no gallop, no murmur Abdomen / GI: normal bowel sounds, non tender, soft, no organomegaly Extremities: normal inspection, no calf tenderness, no pedal edema, normal range of motion Neurologic/Psychiatric: no motor/sensory deficits, alert, normal mood/affect , + pertinent finding (no facial droop, no tremor or myoclonic jerks) Skin: normal color, warm/dry, no rash Hospital Course The patient is a 71-year-old female with a h/o CVA, Diabetes mellitus II,NSTEMI , CAD, Hypercholesteremia, Seizure disorder, Hypertension, Asthma, GERD, Chronic diastolic CHF, and Obesity, who presented to [place] ER with acute onset of what was reported there as left lower extremity weakness about one hour prior. Pt reports to me the reason she went to the ER was due to RUE and RLE shaking. 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 SHe was completely conscious the entire time and remembers what happened. She said that this is similar to some of her seizures in the past. She had a brief "spell" of staring prior to the onset of the shaking. CT of the head without contrast performed was negative for acute event. She underwent a Neuro Telestroke conference with Dr. Mccauley from [facility], who determined that TPA was not indicated, since her symptoms were improving, they requested that the patient get an MRI. The patient was transferred to [facility] since [facility] does not have the capability of MRI. Upon arrival to [facility], the patient's symptoms had completely resolved. She had no further neurological symptoms. Neurology saw her here and suspected seizure (partial) vs TIA. MRI Brain was negative for CVA. MRA head and neck without significant stenosis. She was discharged to home in good condition. Neurology did not feel an EEG was necessary. He did recommend increasing her Dilantin to 300mg for her PM dose and check a level in 2 weeks with f/u as outpt with Neuro. Total Time Spent: Greater than 30 minutes This includes examination of the patient, discharge planning, medication reconciliation, and communication with other providers. Discharge Instructions Please refer to the electronic Patient Visit Report (Discharge Instructions) for additional information. Follow-Up with PCP within 1-2 weeks With Neurology within 1 month Repeat Dilantin level in 2 weeks Additional Copies To Jill Ramey.Chandu PA-C; Chandu Estes M.D.
== END 2016-12-29 19:21 | disposition home or self-care (01) | DRG 101 ==
LOC: C.2T 21:45 → UNDOADMIN 21:45 → C.2T 21:48
PROVIDERS: ADMIT Hospitalist; ATTEND Family Medicine
DX: G40.209 Localization-related (focal) (partial) symptomatic epilepsy and epileptic syndromes with complex partial seizures, not intractable, without status epilepticus (principal); G45.9 Transient cerebral ischemic attack, unspecified; R29.701 NIHSS score 1; R29.898 Other symptoms and signs involving the musculoskeletal system; E11.9 Type 2 diabetes mellitus without complications; I25.2 Old myocardial infarction; E78.5 Hyperlipidemia, unspecified; J45.909 Unspecified asthma, uncomplicated; K21.9 Gastro-esophageal reflux disease without esophagitis; H54.7 Unspecified visual loss; Z79.899 Other long term (current) drug therapy; Z79.82 Long term (current) use of aspirin; Z86.73 Personal history of transient ischemic attack (TIA), and cerebral infarction without residual deficits; Z87.891 Personal history of nicotine dependence

== ENCOUNTER → 2017-11-15 | Day surgery (SDC) | payer OTHER ==
[2017-11-07 09:18] VITALS: BMI 28.0
[~2017-11-15] VITALS: Ht 160 cm; Wt 73.1 kg
[~2017-11-15] MED LIST changes: -ASPEC81 PO; +ASPI81TA28 PO; -ATOR-24 PO; +ATOR-26 PO; +ATROPINE SULFATE 0.1 MG/ML 5ML SYR IV PRN; +CIPROFLOXACIN / D5W 400 MG IV SCH; +CIPROFLOXACIN 400MG / 200ML D5W IV ONE; +DLN100 PO; +ERGO500011 PO; -ERGO500037 PO; +EpHEDrine SULFATE INJ 50 MG/ML AMP IV PRN; +FENTANYL CITRATE INJ 50 MCG/1 ML 2 ML VIAL IV PRN; +FENTANYL CITRATE INJ 50 MCG/1 ML 2 ML VIAL ONE; +FERR1TAB23 PO; +FLUMAZENIL 0.1 MG/1 ML 10 ML VIAL IV PRN; +INDOMETHACIN 50 MG SUPP PR ONE; +LABETALOL HCL IV 5 MG/ML 20ML IV PRN; +LACTATED RINGER'S 1000ML 1,000 ML IV SCH; -LEVE750T PO; +LIDOCAINE HCL 2% 2 ML VIAL (20MG/ML) ONE; +MAGN400T6 PO; -MECL1TAB40 PO; +MIDAZOLAM HCL 1 MG/ML 2ML VIAL ONE; +NALOXONE HCL 0.4 MG/1 ML VIAL/CARP IV PRN; +OMEP-334 PO; -OMEP20CA9 PO; +ONDANSETRON INJ 2 MG/ML 2 ML VIAL IV PRN; +ONDANSETRON INJ 2 MG/ML 2 ML VIAL ONE; +PARO1TAB27 PO; -PHN/100 PO; +PROMETHAZINE HCL INJ 12.5 MG in SODIUM CHLORIDE 0.9% 50ML 50 ML IV PRN; +PROPOFOL IV EMULSION 10 MG/ML 20 ML VIAL ONE; +ROCURONIUM BROMIDE 10 MG/ML 5 ML VIAL ONE
--- NOTE | 2017-11-15 07:52 | Endo History and Physical ---
History & Physical Date of Service: Nov 15, 2017. Chief Complaint: History of gallstones. Referring Physician: History of Present Illness The patient presents today for a repeat ERCP. She has a history of a markedly dilated common bile duct with large common bile duct stones. We have done 2 ERCPs in the past with incomplete clearance despite multiple devices and extensive effort. We had suggested that the patient have her next procedure at a facility with spyglass which could do direct visualization of the common bile duct. Unfortunately the patient is not able to make it to 1 of those facilities. She denies having nausea vomiting fevers or chills at the present time. Past Medical History Diabetes, High Cholesterol Past Surgical History Hx Cardiac Surgery: No Hx Abdominal Surgery: Yes (LAPAROSCOPIC GB SURG/ERCP) Hx Post-Op Nausea and Vomiting: No Hx Cancer Surgery: No Hx Thoracic Surgery: No Hx Orthopedic: No Hx Urinary Tract Surgery: No Social History Smoking Status: Former Smoker Hx Substance Use: No Hx Alcohol Use: No Allergies Coded Allergies: No Known Allergies (Unverified , 11/15/17) unable to obtain allergy info from patient.. -altered mental status Current Medications Reported Home Medications Medications Dose Route/Sig Max Daily Dose Days Date Category Dose Instructions [place] 10MG/325MG (Acetaminophen/Hydrocodone Bitart) Tab 1 Tab PO QID PRN 30 11/07/17 Reported PRN PAIN Iron (Ferrous Sulfate) 325 Mg Tab 325 Mg PO TID 11/07/17 Reported Aspirin Ec (Aspirin) 81 Mg Tab 81 Mg PO QAM 11/07/17 Reported Paxil (Paroxetine HCl) 20 Mg Tab 10 Mg PO QAM 11/07/17 Reported Mag-Ox (Magnesium Oxide) 400 Mg Tab 400 Mg PO QAM 09/06/17 Reported Advair Diskus 500/50 60 Dose (Fluticasone Prop/Salmeterol) 1 Ea Aerp 1 Puff INH QAM 09/06/17 Reported Singulair (Montelukast Sodium) 10 Mg Tab 10 Mg PO QAM 09/06/17 Reported Lipitor (Atorvastatin Calcium) 80 Mg Tab 80 Mg PO HS 08/27/17 Reported Vitamin D 32145 Unit (Ergocalciferol) 50,000 Unit Cap 1 Tab PO WK 08/27/17 Reported MONDAYS Dilantin (Phenytoin Sodium) 100 Mg Cap 2 Cap PO BID 08/27/[address] (Omeprazole) 40 Mg Cap 40 Mg PO QAM 08/16/17 Reported Ventolin Hfa (Albuterol) 200 Puffs/33719 Mcg Aers 2 Puffs INH Q4H PRN 03/29/16 Reported Lopressor (Metoprolol Tartrate) 25 Mg Tab 25 Mg PO BID 03/29/16 Reported Vital Signs Weight (Kilograms): 73.1 Height (Feet): 5 Height (Inches): 3 Physical Exam General Appearance: no apparent distress Respiratory/Chest: Auscultation: deminished air movement, expiratory wheezing Cardiovascular: Heart Auscultation: RRR, II/ [place] Abdomen: Inspection & Palpation: soft, non-distended Assessment and Plan Patient with a history of choledocholithiasis. It is been difficult to clear her doctor due to its large diameter and large impacted gallstones. I had highly recommended that the patient undergo a spyglass procedure so we can see if any material remains within the common bile duct. Unfortunately she is not able to make it to a facility with this technology. We will proceed with a repeat ERCP this morning and hopefully clear her duct today. We have discussed the risks of the procedure to include bleeding, infection, perforation, pancreatitis, pain and need for follow-up studies. Recommendations ERCP today Preoperative ciprofloxacin Indocin to be given during the procedure
[2017-11-15 08:03] VITALS: BP 143/93; PULSE 87; TEMP 36.8; O2SAT 96; Ht 160 cm; Wt 73.1 kg
--- NOTE | 2017-11-15 08:56 | [facility] Post Operative Brief Note ---
Immediate Operative Summary Operative Date Nov 15, 2017. Pre-Operative Diagnosis History of choledocholithiasis Post-Operative Diagnosis Common Bile duct stones Dilated CBD Procedure(s) Performed Endoscopic Retrograde Cholangiopancreatogram with gallstone extraction Surgeon Dr. Lucero Diabetic Educator Surgeon(s) None Estimated Blood Loss 5ml Findings Consistent with Post-Op Diagnosis Specimens None Drains None Anesthesia Type General Complication(s) none Disposition Accompanied Pt To Recover: no Disposition: Recovery Room / PACU
--- NOTE | 2017-11-15 09:16 | GI REPORT ---
Patient Name: Maegan Hood Procedure Date: 11/15/2017 8:24 AM Date of : 1945 Admit Type: Outpatient Age: 72 Gender: Female Attending MD: Tete Lucero DO Procedure: ERCP Providers: Tete Lucero DO Referring MD: Jeison Cao Do Indications: For therapy of bile duct stone(s), Stent removal Medicines: General Anesthesia, Cipro 400 mg IV Complications: No immediate complications. Estimated blood loss: Minimal. Estimated Blood Loss: Estimated blood loss was minimal. Procedure: Pre-Anesthesia Assessment: - Prior to the procedure, a History and Physical was performed, and patient medications, allergies and sensitivities were reviewed. The patient's tolerance of previous anesthesia was reviewed. - The risks and benefits of the procedure and the sedation options and risks were discussed with the patient. All questions were answered and informed consent was obtained. - Patient identification and proposed procedure were verified prior to the procedure by the physician, the nurse and the skeet operator. The procedure was verified in the procedure room. - Pre-procedure physical examination revealed no contraindications to sedation. - ASA Grade Assessment: III - A patient with severe systemic disease. - After reviewing the risks and benefits, the patient was deemed in satisfactory condition to undergo the procedure. - The anesthesia plan was to use general anesthesia. - Immediately prior to administration of medications, the patient was re-assessed for adequacy to receive sedatives. - The heart rate, respiratory rate, oxygen saturations, blood pressure, adequacy of pulmonary ventilation, and response to care were monitored throughout the procedure. - The physical status of the patient was re-assessed after the procedure. After obtaining informed consent, the scope was passed under direct vision. Throughout the procedure, the patient's blood pressure, pulse, and oxygen saturations were monitored continuously. The scope was introduced through the mouth, and advanced to the duodenum and used to inject contrast into the bile duct. The ERCP was accomplished without difficulty. The patient tolerated the procedure well. Findings: A topographical engineer film of the abdomen was obtained. Surgical clips, consistent with previous cholecystectomy, were seen in the area of the right upper quadrant of the abdomen. One stent ending in the main bile duct was seen. The esophagus was successfully intubated under direct vision without detailed examination of the pharynx, larynx, and associated structures, and upper GI tract. The upper GI tract was grossly normal. One biliary stent originating in the biliary tree was emerging from the major papilla. The stent was visibly patent. A biliary sphincterotomy had been performed. The sphincterotomy appeared open. One stent was removed from the biliary tree using a snare. The stent was found to be patent via the water column test. The bile duct was deeply cannulated with the short-nosed traction sphincterotome and 0.035 in Met 2 guidewire. Contrast was injected. I personally interpreted the bile duct images. Contrast extended to the hepatic ducts. A cholecystectomy had been performed. The entire biliary tree was diffusely dilated. The largest diameter was 15-18 mm. The middle third of the main bile duct contained filling defect(s) thought to be a stone. The lower third of the main bile duct was successfully dilated with a 12-13.5-15 mm balloon (to a maximum balloon size of 15 mm) dilator held inflated for 3 minutes. To discover objects, the biliary tree was swept with a 20 mm balloon starting at the bifurcation several times. Sludge was swept from the duct. A few green pigmented stones were removed. No stones remained on occlusion cholangiogram. Indomethacin 100 mg was given via suppository to decrease the risk of post-ERCP pancreatitis (PEP). The endoscope was withdrawn from the patient. Impression: - One visibly patent stent from the biliary tree was seen in the major papilla. - Prior biliary sphincterotomy appeared open. - A filling defect consistent with a stone was seen on the cholangiogram. - The entire biliary tree was dilated. - The patient has had a cholecystectomy. - Choledocholithiasis was found. Complete removal was accomplished by balloon extraction. - Indomethacin given to decrease risk of post-ERCP pancreatitis. Recommendation: - Avoid aspirin and nonsteroidal anti-inflammatory medicines for 5 days. - Clear liquid diet today. - Cipro (ciprofloxacin) 500 mg PO BID for 3 days. - Return to my office PRN. Tete Lucero D.O. Tete Lucero DO 11/15/2017 9:16:02 AM This report has been signed electronically. Note Initiated On: 11/15/2017 8:24 AM Number of Addenda: 0 I attest to the content of the Intraoperative Record and orders documented therein, exceptions below {[id number]}
--- NOTE | 2017-11-15 09:33 | Discharge Instructions ---
Endoscopy Patient Instructions Date / Procedure(s) Performed Nov 15, 2017. ERCP Allergy Information Coded Allergies: No Known Allergies (Unverified , 11/15/17) unable to obtain allergy info from patient.. -altered mental status Discharge Date / Findings Nov 15, 2017. Dilated common bile duct Several small gallstones and biliary sludge Medication Instructions Reported Home Medications Medications Dose Route/Sig Max Daily Dose Days Date Category Dose Instructions [place] 10MG/325MG (Acetaminophen/Hydrocodone Bitart) Tab 1 Tab PO QID PRN 30 11/07/17 Reported PRN PAIN Iron (Ferrous Sulfate) 325 Mg Tab 325 Mg PO TID 11/07/17 Reported Aspirin Ec (Aspirin) 81 Mg Tab 81 Mg PO QAM 11/07/17 Reported Paxil (Paroxetine HCl) 20 Mg Tab 10 Mg PO QAM 11/07/17 Reported Mag-Ox (Magnesium Oxide) 400 Mg Tab 400 Mg PO QAM 09/06/17 Reported Advair Diskus 500/50 60 Dose (Fluticasone Prop/Salmeterol) 1 Ea Aerp 1 Puff INH QAM 09/06/17 Reported Singulair (Montelukast Sodium) 10 Mg Tab 10 Mg PO QAM 09/06/17 Reported Lipitor (Atorvastatin Calcium) 80 Mg Tab 80 Mg PO HS 08/27/17 Reported Vitamin D 92072 Unit (Ergocalciferol) 50,000 Unit Cap 1 Tab PO WK 08/27/17 Reported MONDAYS Dilantin (Phenytoin Sodium) 100 Mg Cap 2 Cap PO BID 08/27/[address] (Omeprazole) 40 Mg Cap 40 Mg PO QAM 08/16/17 Reported Ventolin Hfa (Albuterol) 200 Puffs/24500 Mcg Aers 2 Puffs INH Q4H PRN 03/29/16 Reported Lopressor (Metoprolol Tartrate) 25 Mg Tab 25 Mg PO BID 03/29/16 Reported Provider Instructions Activity Restrictions - No exercising or heavy lifting for 24 hours. - Do not drink alcohol the day of the procedure. - Do not drive a car or operate machinery until the day after the procedure. - Do not make any important decisions or sign important papers in 24 hours after the procedure. Following Day: - Return to full activity which may include returning to work/school. Diet Clear liquid diet Regular diet on 11/16/17 Treatment For Common After Affects For mild abdominal pain, bloating, or excessive gas: - Rest - Eat lightly - Lie on right side Follow-Up Information Follow-up with Dr. Lucero as needed Ciprofloxacin 500 mg twice daily x 3 days Anesthesia Information What You Should Know You have had a procedure that required some medicine to reduce anxiety and discomfort. This treatment is called moderate sedation. After receiving the treatment, you may be sleepy, but you will be able to breathe on your own. The effects of the treatment may last for several hours. Follow these instructions along with Activity/Diet recommendations noted above: * Do NOT do anything where dizziness or clumsiness would be dangerous. * Rest quietly at home today, then you can be up and about tomorrow. * Have a responsible person stay with you the rest of today. * You may have had an I.V. today. If so, you may take the dressing off later today. Recommendations Call your doctor if: * Trouble breathing * Continuous vomiting for more than 24 hours * Temperature above 101 degrees * Severe abdominal pain or bloating * Pain not relieved by pain medicine ordered * There is increased drainage or redness from any incision * A large amount of rectal bleeding greater than 2-3 tablespoons. (If you had a polyp/s removed or have hemorrhoids, a small amount of blood - from the rectum is to be expected.) * You have any unanswered questions or concerns. IN THE EVENT OF A SERIOUS EMERGENCY, GO TO THE NEAREST EMERGENCY ROOM Your discharge instructions were prepared by provider Tete Lucero. Patient Instructions Signature Page Maegan Hood Patient (or Guardian) Signature/Date: I have read and understand the instructions given to me by my caregivers. Caregiver/RN/Doctor Signature/Date: The above-named patient and/or guardian has received patient instructions on this date. + Original Patient Signature Page (only) stays with chart. Please make copy for patient.
[2017-11-15 09:50] VITALS: BP 142/72; PULSE 75; TEMP 36.8; O2SAT 97
--- NOTE | 2017-11-15 10:11 | Anesthesiology Progress Note ---
Anesthesia Post Op Note Date & Time Nov 15, 2017 at 10:11 Vital Signs Pain Intensity: 0 Vital Signs Past 12 Hours Date Time Temp Pulse Resp B/P (MAP) Pulse Ox O2 Delivery O2 Flow Rate FiO2 11/15/17 09:50 36.8 75 20 142/72 97 Room Air 11/15/17 09:45 36.4 65 13 132/77 98 Nasal Cannula 2 11/15/17 09:35 66 12 130/80 98 Nasal Cannula 2 11/15/17 09:25 70 18 141/83 100 Nasal Cannula 2 11/15/17 09:15 78 12 148/88 100 Oxymask 10 11/15/17 09:07 36.4 88 12 157/88 98 Oxymask 10 11/15/17 08:03 36.8 87 20 143/93 (110) 96 Room Air Notes Mental Status: alert / awake / arousable, participated in evaluation Pt Amnestic to Procedure: Yes Nausea / Vomiting: adequately controlled Pain: adequately controlled Airway Patency, RR, SpO2: stable & adequate BP & HR: stable & adequate Hydration State: stable & adequate Anesthetic Complications: no major complications apparent
[2017-11-15 10:20] VITALS: BP 157/76; PULSE 74; TEMP 36.8; O2SAT 96
--- NOTE | 2017-11-15 10:40 | DIAGNOSTIC IMAGING REPORT ---
ERCP BILIARY DUCTAL CLINICAL HISTORY: 72 years-old Female presenting with ERCP. TECHNIQUE: Fluoroscopy was provided for endoscopic retrograde cholangiopancreatography. 10 fluoroscopic image(s) recorded. COMPARISON: 09/12/2017. FINDINGS: Procedure: Common bile duct stent no longer present. Cholecystectomy clips noted. Pneumobilia. An endoscope projects over the descending duodenum. A guidewire was introduced into the common duct and subsequently into the right hepatic ducts. The common bile duct was opacified with contrast. The cystic duct opacifies and is mildly dilated. Intrahepatic ducts also opacify. Filling defects in the intrahepatic ducts near the hilum may represent pneumobilia. Peritoneal spillage: No evidence of peritoneal spillage of contrast. Extrahepatic bile ducts: The common bile duct is normal in course and mildly prominent in caliber. There are no filling defects seen within the common bile duct to suggest a retained stone. Intrahepatic bile ducts: Mild prominence of intrahepatic ducts may be due to a balloon occlusion of the distal common duct or a reservoir effect in the post cholecystectomy state. Fluoroscopy dosage (mGy): 7.09. Fluoroscopy time: 40.4 seconds. Number or time of fluoroscopic spot images: 0. IMPRESSION: Common bile duct stent no longer present. No choledocholithiasis. Mild prominence of ducts could be due to a reservoir effect in the post cholecystectomy state. No peritoneal spillage. Electronically signed by: Neftali Ghotra M.D. 11/15/2017 10:39 AM Dictated Date/Time: 11/15/2017 10:35 AM
== END | disposition home or self-care (01) ==
LOC: C.ACU 07:27
PROVIDERS: ATTEND Internal Medicine Gastroenterology
DX: K80.50 Calculus of bile duct without cholangitis or cholecystitis without obstruction (principal); Z46.59 Encounter for fitting and adjustment of other gastrointestinal appliance and device; J45.909 Unspecified asthma, uncomplicated; J44.9 Chronic obstructive pulmonary disease, unspecified; I25.2 Old myocardial infarction; I25.10 Atherosclerotic heart disease of native coronary artery without angina pectoris; E66.9 Obesity, unspecified; E11.9 Type 2 diabetes mellitus without complications; G40.909 Epilepsy, unspecified, not intractable, without status epilepticus; I10 Essential (primary) hypertension; Z86.73 Personal history of transient ischemic attack (TIA), and cerebral infarction without residual deficits; H54.8 Legal blindness, as defined in USA; E78.00 Pure hypercholesterolemia, unspecified; Z87.891 Personal history of nicotine dependence; Z79.82 Long term (current) use of aspirin; Z79.899 Other long term (current) drug therapy; Z79.84 Long term (current) use of oral hypoglycemic drugs

== ENCOUNTER 2018-04-06 21:12 | Inpatient (IN) ==
[2018-04-06] MEDS ORDERED: LORazepam 2 MG/4 ML VIAL ONE (21:19)
[2018-04-06] MEDS ORDERED: SODIUM CHLORIDE 0.9% 500 ML IV ONE (21:19)
[2018-04-06] MEDS ORDERED: SODIUM CHLORIDE 0.9% 10ML FLUSH IV STA (21:19)
[2018-04-06] MEDS ORDERED: LORazepam 1 MG/2 ML VIAL IV STA ×2 (21:19→21:21)
[2018-04-06] MEDS ORDERED: PHENYTOIN 100 MG in SYRINGE 0 ML IV STA (21:19)
[2018-04-06 21:26] LABS: Basophils # (auto) 0.03 K/uL (0-0.2); Basophils % (auto) 0.4 %; Eosinophils # (auto) 0.14 K/uL (0-0.5); Eosinophils % (auto) 1.8 %; Hematocrit (blood only) 45.6 % (37-47); Hemoglobin 15.5 g/dL (12.0-16.0); Immature Granulocytes # (auto) 0.01 K/uL (0.00-0.02); Immature Granulocytes % (auto) 0.1 %; Lymphocytes # (auto) 1.94 K/uL (1.2-3.4); Lymphocytes % (auto) 24.3 %; Mean Corpuscular Volume 92.5 fL (80-100); Mean Platelet Volume 9.7 fL (7.4-10.4); Monocytes # (auto) 0.66 K/uL (0.11-0.59); Monocytes % (auto) 8.3 %; Neutrophils # (auto) 5.21 K/uL (1.4-6.5); Neutrophils % (auto) 65.1 %; Platelet Count 179 K/uL (130-400); RDW Coefficient of Variation 13.7 % (11.5-14.5); RDW Standard Deviation 46.3 fL (36.4-46.3); Red Blood Count 4.93 M/uL (4.2-5.4); White Blood Count 7.99 K/uL (4.8-10.8)
[2018-04-06 21:36] LABS: Partial Thromboplastin Ratio 0.9; Partial Thromboplastin Time 24.5 Seconds (21.0-31.0)
[2018-04-06 21:38] LABS: BUN Creatinine Ratio 18.4 (10-20); Blood Urea Nitrogen 16 mg/dl (7-18); Calcium 9.1 mg/dl (8.5-10.1); Carbon Dioxide 29 mmol/L (21-32); Chloride 102 mmol/L (98-107); Creatinine Clr Calc Pharmacy 52.8 ml/min; Est GFR (Non-African American) 69.9; Glucose 94 mg/dl (70-99); Magnesium 1.9 mg/dl (1.8-2.4); Potassium 3.7 mmol/L (3.5-5.1); Sodium 138 mmol/L (136-145)
[2018-04-06] MEDS ORDERED: IOVERSOL 100ml IV PRN (21:39)
[2018-04-06 21:43] LABS: Creatine Kinase MB 1.9 ng/ml (0.5-3.6); Troponin I < 0.015 ng/ml (0-0.045)
--- NOTE | 2018-04-06 21:52 | CT Scan Report ---
HEAD CT NONCONTRAST CT DOSE: HISTORY: Stroke evaluation TECHNIQUE: Multiaxial CT images of the head were performed without the use of intravenous contrast. A utomated exposure control was utilized for this study. A dose lowering technique was utilized adheri ng to the principles of ALARA. Comparison: Head CT 08/16/2017. Findings: The paranasal sinuses and mastoid air cells are clear. The calvarium and skull base are int act. There is no mass, hematoma, midline shift, acute infarct. White matter hypodensity is nonspecifi c but suggestive of microvascular ischemic change. The ventricles and sulci demonstrate mild age-rela oneil involutional changes. Calcified and atrophic left globe, unchanged. Impression: No acute intracranial abnormality. Atrophy and microvascular ischemic changes. Electronically signed by: Sherman Hernandez M.D. 04/06/2018 9:51 PM
--- NOTE | 2018-04-06 22:00 | CT Scan Report ---
HEAD & NECK CTA HISTORY: Symptoms. Pt c/o left sided weakness TECHNIQUE: Multiaxial CT images of the head were performed following the intravenous administration o f contrast to evaluate the major cerebral vessels. Multiaxial CT images of the neck were also perform ed following the intravenous administration of contrast to evaluate the major cervical vessels. Maxim um intensity projection images were also obtained. A dose lowering technique was utilized adhering to the principles of ALARA. COMPARISON: Head and neck CTA 08/16/2017. FINDINGS: There is no mass, hematoma, midline shift, or acute infarct. Visualized intracranial internal carotid arteries, distal vertebral arteries, and basilar artery are widely patent. There is no significant s tenosis, occlusion, or aneurysm seen within the bilateral ACAs, MCAs, or rental car porter. Moderate calcified harlan que within the bilateral carotid siphons. The aortic arch and proximal great vessels are widely patent. There is an 8 mm groundglass and nodu lar density within the left upper lobe. This is new from the prior study and therefore likely represe nts a small focus of inflammatory/infectious change. There are few additional tiny groundglass nodula r densities within the left upper lobe which are similar to the prior study. Stable 1 cm hypodense no dule within the right thyroid lobe. Mild calcified plaque within the bilateral carotid bifurcations. No significant stenosis, occlusion, or dissection within the carotid or vertebral arteries. IMPRESSION: 1. No significant stenosis, occlusion, or aneurysm within the [place] of [place]. 2. No significant stenosis, occlusion, or dissection identified within the carotid or vertebral arter ies. 3. A few subcentimeter groundglass nodules within the left lung apex. These favor mild inflammatory/i nfectious change. Electronically signed by: Sherman Hernandez M.D. 04/06/2018 9:58 PM
--- NOTE | 2018-04-06 22:00 | CT Scan Report ---
HEAD & NECK CTA HISTORY: Symptoms. Pt c/o left sided weakness TECHNIQUE: Multiaxial CT images of the head were performed following the intravenous administration o f contrast to evaluate the major cerebral vessels. Multiaxial CT images of the neck were also perform ed following the intravenous administration of contrast to evaluate the major cervical vessels. Maxim um intensity projection images were also obtained. A dose lowering technique was utilized adhering to the principles of ALARA. COMPARISON: Head and neck CTA 08/16/2017. FINDINGS: There is no mass, hematoma, midline shift, or acute infarct. Visualized intracranial internal carotid arteries, distal vertebral arteries, and basilar artery are widely patent. There is no significant s tenosis, occlusion, or aneurysm seen within the bilateral ACAs, MCAs, or senior applications developer. Moderate calcified harlan que within the bilateral carotid siphons. The aortic arch and proximal great vessels are widely patent. There is an 8 mm groundglass and nodu lar density within the left upper lobe. This is new from the prior study and therefore likely represe nts a small focus of inflammatory/infectious change. There are few additional tiny groundglass nodula r densities within the left upper lobe which are similar to the prior study. Stable 1 cm hypodense no dule within the right thyroid lobe. Mild calcified plaque within the bilateral carotid bifurcations. No significant stenosis, occlusion, or dissection within the carotid or vertebral arteries. IMPRESSION: 1. No significant stenosis, occlusion, or aneurysm within the [place] of [place]. 2. No significant stenosis, occlusion, or dissection identified within the carotid or vertebral arter ies. 3. A few subcentimeter groundglass nodules within the left lung apex. These favor mild inflammatory/i nfectious change. Electronically signed by: Sherman Hernandez M.D. 04/06/2018 9:58 PM
--- NOTE | 2018-04-06 22:01 | XRay Report ---
XR chest 1V portable HISTORY: Pt c/o left sided weakness COMPARISON: Chest 09/06/2017. FINDINGS: There are few linear scarlike densities at the left lung base, unchanged. No new focal lung consolidations to suggest pneumonia. No evidence for pulmonary edema. The heart is stable in size. N o pleural effusions. No pneumothorax. Prior cholecystectomy. IMPRESSION: No significant change compared to the prior study. No acute process. Electronically signed by: Sherman Hernandez M.D. 04/06/2018 9:59 PM
--- NOTE | 2018-04-06 23:10 | History & Physical Report ---
Addendum entered and electronically signed by Aura Veliz MD 04/07/18 01:56: Addendum (Blank) Addendum April 07, 2018 01:55 Hold PO home medications until pt awake, alert, and oriented Original Note: Date of Service April 06, 2018 Assessment & Plan (1) Seizure: Maegan Hood is a 72 y.o female with history of seizure disorder, Asthma, CVA, diabetes, and GERD admitted for management and treatment of acute seizure. 1. Acute Seizure -took place on arrival to ED -History of seizure disorder -Keppra loading dose, Phenytoin loading dose, and Ativan x2 given in the ED -Phenytoin Level therapeutic at 12.8 -Keppra level pending -Will give medications IV as pt is currently not alert and oriented -Phenytoin 200mg IV qAM -Phenytoin 300mg IV qPM -Keppra 750mg IV BID -Seizure Precautions 2. Prior CVA -left sided weakness on exam -CT head: negative for acute intracranial abnormality. Atrophy and microvascular ischemic changes. -Head CTA: No significant stenosis, occlusion, or aneurysm within the [place] of [place]. No significant stenosis, occlusion, or dissection identified within the carotid or vertebral arteries. A few subcentimeter groundglass nodules within the left lung apex. -CXR negative for Pleural effusion, pulm edema, or pneumothorax -Will consult PT/OT -Continue Aspirin daily 3. Asthma -Continue home Advair daily -Continue Montelukast 4. Diabetes -Hold metformin -Accuchecks Ac/HS with SSI -NPO diet until alert and awake 5. GERD -Will give Protonix 6. HLD -Continue Atorvastatin FEN/GI IVF at maintenance Electrolytes: monitor and replace Nutrition: NPO Activity: Bed rest GI PPX: Protonix DVT PPX: Heparin Code: Full Code Dispo: Admit to inpatient for monitoring of post-seizure state and management of chronic disease. (2) Diabetes: (3) CVA (cerebral vascular accident): (4) Altered mental status: History of Present Illness Chief Complaint: "I had to come to the hospital." Primary Care Provider: Jill Ramey PA-C Maegan Hood is a 72 y.o female with complex medical history including seizure disorder, diabetes, CVA, Asthma, GERD, HLD, seen in the ED for stroke evaluation. History per RN. Issa's was sitting with her at home during the evening when she became tremulous and passed out. She was brought to the ED per EMS and had a seizure upon arrival. Mrs. Hood is unable to provide a history but currently denies pain. ED course: Given Ativan x2 , Loading dose of Keppra, Loading dose of Phenytoin. IVF bolus administered. Allergies Allergy/AdvReac Type Severity Reaction Status Date / Time No Known Allergies Allergy Verified 04/06/18 21:47 Home Medications Home Medications Medication Instructions Recorded Confirmed Type albuterol sulfate 2 puff INHALATION BID 03/21/18 04/06/18 History aspirin 81 mg PO QAM 03/21/18 04/06/18 History ferrous sulfate [Iron (ferrous 325 mg PO TID 03/21/18 04/06/18 History sulfate)] fluticasone-salmeterol [Advair 1 inh INHALATION QAM 03/21/18 04/06/18 History Diskus] magnesium oxide [MagOx] 400 mg PO QAM 03/21/18 04/06/18 History meclizine 12.5 mg PO TID PRN 03/21/18 04/06/18 History metoprolol tartrate 25 mg PO BID 03/21/18 04/06/18 History montelukast 10 mg PO QAM 03/21/18 04/06/18 History omeprazole 40 mg PO QAM 03/21/18 04/07/18 History phenytoin sodium extended 200 mg PO QAM 03/21/18 04/07/18 History atorvastatin 80 mg PO PM 04/06/18 04/06/18 History calcium carbonate-vitamin D3 1 tab PO BID 04/06/18 04/06/18 History [Calcium 600 + D(3)] phenytoin sodium extended 300 mg PO QPM 04/07/18 04/07/18 History levetiracetam 750 mg PO BID #60 tab 04/08/18 Rx Past Med/Surg History Medical History Anemia Asthma inhaler daily/prn Chronic back pain Depression Diabetes mellitus, type 2 Emphysema/COPD GERD (gastroesophageal reflux disease) Hyperlipidemia Hypertension Osteoarthritis Seizure grand mal--last 11/2017---on keppra/dilantin Stroke x2-3---last 11/2017--no deficits Surgical History History of carpal tunnel surgery of right wrist History of cholecystectomy History of colonoscopy History of esophagogastroduodenoscopy (EGD) Social History Current Living Situation: Spouse Feels Safe at Home: Yes Smoking Status: Former smoker Second Hand Exposure: Yes ( smoked) Hx Alcohol Use: No Hx Substance Use: No Beliefs That Will Affect Care: None Preferred Language: Turkish Review of Systems Unobtainable due to cognitive status (pt is drowsy) Physical Exam 2 Vital Signs (Past 24 Hours): Last Vital Signs Temp 36.6 C 04/06/18 21:17 Pulse 92 H 04/06/18 22:34 Resp 18 04/06/18 22:34 BP 138/77 04/06/18 22:34 Pulse Ox 93 04/06/18 22:34 Constitutional: + ill appearing, + thin, + altered mental status and + disheveled; + not well nourished, not in distress and not combative Eyes: EOM intact bilaterally right pupil reactive to light left pupil non-reactive to light ENMT: Nose: + face asymmetric; no nasal discharge Mouth: + dry oral mucous membranes and + poor dentition external ear and nose normal Neck: + facial hair neck supple, nttp, no lymphadenopathy Respiratory: normal respiratory effort, lungs clear to auscultation no cough no wheezes, rales, or rhonchi Cardiovascular: RRR, no murmur, no edema Heart Sounds: normal S1 and normal S2 Vessels: normal peripheral pulses Gastrointestinal (Abdomen): normal bowel sounds, soft, nontender, no hepatosplenomegaly Percussion/Palpation: abdomen nontender Musculoskeletal: Head/Neck/Chest: normocephalic and neck supple Extremities : extremities normal to inspection and + limited ROM of upper extremity Bilateral (left > right, left arm flexed at 90 degrees) Skin: no rashes, warm and dry Neurologic: + confused left facial droop strength 5/5 right hand left hand strength, 0/5 Psychiatric: Orientation: + not oriented x 3 Apperance: + disheveled Eye Contact: + poor eye contact she is intermittently awake but not alert during the encounter Results & Data Laboratory Results Phenytoin level of 12.8 Diagnostic Findings CXR no pleural effusions head CT: no intracranial abnormalities Code Status & VTE Plan Code Status Full Code VTE Prophylaxis Plan VTE Prophylaxis will be ordered: Yes Supervising Physician Co-Signing Physician Notes Attending addendum: I have physically seen this patient, have supervised the medical residents activities, and agree with the H&P unless as otherwise noted. Assessment and Plan: Seizure disorder/witnessed seizure activity in the day-- All meds to be given IV as patient is not alert or oriented. Keppra 750mg IV BID Phenytoin IV 200/300 Admit to monitored bed with seizure precautions. CT head negative. Order MRI brain without contrast. Neurochecks. PT/OT consult Remainder of orders and notations as noted.
--- NOTE | 2018-04-06 23:52 | Emergency Department Note ---
Entered by Benny Elliott acting as a scribe for History of Present Illness General Chief complaint: Stroke/CVA Symptoms Stated complaint: CVA SX Source: patient History of Present Illness Provider complaint: Weakness Onset (ago): hour(s) (1.5) Location: head Radiation: other (Left sided) Pain Consistency: + constant Relieved By: + none Exacerbated By: + none Associated symptoms: + headaches The patient is a 72 year old female who presents to the Emergency Room via EMS with complaints of constant left sided weakness that onset at about 1.5 hours ago at 1930, per EMS. The patient does have left sided weakness at baseline but per the EMS, today has been worse. She also has slurred speech and a tremor at baseline but today both are worse, per EMS. 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 She usually walks without assistance but today she needed to be carried to the liter. Upon EMS arrival to her house, her sugar was 100. She has a history of hypertension, amongst others. The patient was unable to provide any information due to current state. Home Medications Home Medications Medication Instructions Recorded Confirmed Type albuterol sulfate 2 puff INHALATION BID 03/21/18 04/06/18 History aspirin 81 mg PO QAM 03/21/18 04/06/18 History ferrous sulfate [Iron (ferrous 325 mg PO TID 03/21/18 04/06/18 History sulfate)] fluticasone-salmeterol [Advair 1 inh INHALATION QAM 03/21/18 04/06/18 History Diskus] magnesium oxide [MagOx] 400 mg PO QAM 03/21/18 04/06/18 History meclizine 12.5 mg PO TID PRN 03/21/18 04/06/18 History metoprolol tartrate 25 mg PO BID 03/21/18 04/06/18 History montelukast 10 mg PO QAM 03/21/18 04/06/18 History omeprazole 40 mg PO QAM 03/21/18 04/07/18 History phenytoin sodium extended 200 mg PO QAM 03/21/18 04/07/18 History atorvastatin 80 mg PO PM 04/06/18 04/06/18 History calcium carbonate-vitamin D3 1 tab PO BID 04/06/18 04/06/18 History [Calcium 600 + D(3)] phenytoin sodium extended 300 mg PO QPM 04/07/18 04/07/18 History levetiracetam 750 mg PO BID #60 tab 04/08/18 Rx Allergies Allergy/AdvReac Type Severity Reaction Status Date / Time No Known Allergies Allergy Verified 04/06/18 21:47 Past Med/Surg History Medical History Anemia Asthma inhaler daily/prn Chronic back pain Depression Diabetes mellitus, type 2 Emphysema/COPD GERD (gastroesophageal reflux disease) Hyperlipidemia Hypertension Osteoarthritis Seizure grand mal--last 11/2017---on keppra/dilantin Stroke x2-3---last 11/2017--no deficits Surgical History History of carpal tunnel surgery of right wrist History of cholecystectomy History of colonoscopy History of esophagogastroduodenoscopy (EGD) Social History Current Living Situation: Spouse Feels Safe at Home: Yes Smoking Status: Former smoker Second Hand Exposure: Yes ( smoked) Hx Alcohol Use: No Hx Substance Use: No Beliefs That Will Affect Care: None Preferred Language: Divehi Review of Systems See HPI for pertinent positives & negatives. Unobtainable due to cognitive status Physical Exam Vital Signs Vital Signs - 24 hr 04/08/18 07:00 04/08/18 08:00 04/08/18 13:34 Temperature 36.9 C 36.9 C Temperature Source Oral Pulse Rate [Apical] 83 Pulse Rate [Left Finger] 85 85 Respiratory Rate 20 20 Respiratory Effort / Characteristics Non-Labored Respiratory Depth Normal Respiratory Pattern Regular Blood Pressure [Left Arm] 117/71 Blood Pressure [Right Arm] 105/69 105/69 Blood Pressure Mean [Right Arm] 81 Blood Pressure Position [Right Arm] Lying Pulse Oximetry 94 94 Oxygen Delivery Method Room Air Room Air GENERAL: Awake, alert, tremulous, and having a tonic colonic seizure. HENT: Normocephalic, atraumatic. Oropharynx unremarkable. EYES: Normal conjunctiva. Sclera non-icteric. NECK: Supple. No nuchal rigidity. FROM. No masses. RESPIRATORY: Clear to auscultation. No wheezes. No rales. Normal respiratory effort. CARDIAC: Normal rate. Normal rhythm. No murmurs. No rubs. Extremities warm and well perfused. Pulses equal. No JVD. GI: Soft, non-distended. No tenderness to palpation. No rebound or guarding. No masses. RECTAL: Deferred. MUSCULOSKELETAL: Atraumatic. Chest examination reveals no tenderness. The back is symmetrical on inspection without obvious abnormality. There is no CVA tenderness to palpation. No joint edema. LOWER EXTREMITIES: Calves are equal size bilaterally and non-tender. No edema. No discoloration. NEURO: Normal sensorium. No sensory or motor deficits noted. Course 2112: Past medical records reviewed. The patient was evaluated in room B01, and a complete history and physical examination were performed. 2134: I spoke to Dr. Pan [facility] Hospitalist about the patient's case and he is going to accept her for further evaluation. Consultations Consultation #1: I spoke to Dr. Pan [facility] Hospitalist about the patient's case and he is going to accept her for further evaluation. Time: 21:35 Administered Medications Discontinued Medications Albuterol (Ventolin Hfa) 2 puffs INH BID JUVENTINO Stop: 05/07/18 20:59 Last Admin: 04/08/18 09:40 Dose: 2 puffs Admin: 04/07/18 21:32 Dose: Not Given Aspirin (Ecotrin Ectab) 81 mg PO QAM JUVENTINO Stop: 05/08/18 08:59 Last Admin: 04/08/18 09:38 Dose: 81 mg Atorvastatin Calcium (Lipitor) 80 mg PO PM JUVENTINO Stop: 05/07/18 20:59 Last Admin: 04/07/18 20:44 Dose: 80 mg Ferrous Sulfate (Feosol) 325 mg PO TID JUVENTINO Stop: 05/07/18 20:59 Last Admin: 04/08/18 14:03 Dose: 325 mg Admin: 04/08/18 09:38 Dose: 325 mg Admin: 04/07/18 20:43 Dose: 325 mg Heparin Sodium (Porcine) (Heparin Sodium (Porcine)) 5,000 units SQ Q12 JUVENTINO Stop: 05/07/18 08:59 Last Admin: 04/08/18 09:37 Dose: 5,000 units Admin: 04/07/18 20:46 Dose: 5,000 units Admin: 04/07/18 09:33 Dose: 5,000 units Phenytoin 100 mg/ Syringe 2 mls @ 1 mls/min IV NOW STA Stop: 04/06/18 21:20 Last Admin: 04/06/18 21:44 Dose: 1 mls/min Sodium Chloride (Nss) 500 mls @ 999 mls/hr IV .Q31M ONE Stop: 04/06/18 21:49 Last Infusion: 04/06/18 22:23 Dose: 0 mls/hr Admin: 04/06/18 21:44 Dose: 999 mls/hr Lorazepam (Ativan) 1 mg in 2 mls @ 2 mls/min IV NOW STA Stop: 04/06/18 21:20 Last Admin: 04/06/18 21:43 Dose: 2 mls/min Levetiracetam 1,000 mg/ (Dextrose) 110 mls @ 440 mls/hr IV NOW STA Stop: 04/06/18 21:34 Last Infusion: 04/06/18 22:23 Dose: 0 mls/hr Admin: 04/06/18 21:44 Dose: 440 mls/hr Lorazepam (Ativan) 1 mg in 2 mls @ 2 mls/min IV NOW STA Stop: 04/06/18 21:22 Last Admin: 04/06/18 21:45 Dose: Not Given Levetiracetam 750 mg/ Dextrose 107.5 mls @ 440 mls/hr IV BID JUVENTNIO Stop: 05/07/18 08:59 Last Infusion: 04/07/18 09:47 Dose: Admin: 04/07/18 09:32 Dose: 440 mls/hr Pantoprazole Sodium 40 mg/ (Syringe) 10 mls @ 5 mls/min IV DAILY@1100 [facility] Stop: 05/07/18 10:59 Last Admin: 04/07/18 12:25 Dose: 5 mls/min Phenytoin 200 mg/ Syringe 4 mls @ 1 mls/min IV DAILY@0900 J[facility]INO Stop: 05/07/18 08:59 Last Admin: 04/07/18 09:32 Dose: 1 mls/min Sodium Chloride 20 ml/ Syringe 20 mls @ 10 mls/min IV DAILY@0900 [facility] Stop: 05/07/18 08:59 Last Admin: 04/07/18 09:35 Dose: 10 mls/min Influenza Virus Vaccine (Fluzone High-Dose Pf) 0.5 ml IM .ONCE ONE Stop: 04/07/18 06:46 Last Admin: 04/08/18 13:20 Dose: Not Given Insulin Aspart (Novolog Flexpen) 0 units SC ACHS [facility] Stop: 05/07/18 07:29 Last Admin: 04/08/18 13:29 Dose: Not Given Admin: 04/08/18 09:46 Dose: Not Given Admin: 04/07/18 20:45 Dose: Not Given Admin: 04/07/18 17:10 Dose: Not Given Admin: 04/07/18 12:31 Dose: Not Given Admin: 04/07/18 07:53 Dose: Not Given Ioversol (Optiray 320 100ml) 94 ml IV ONCE PRN PRN Reason: Interaction Checking Stop: 04/10/18 21:38 Last Admin: 04/06/18 21:39 Dose: 94 ml Levetiracetam (Keppra) 750 mg PO BID [facility] Stop: 05/07/18 20:59 Last Admin: 04/08/18 09:38 Dose: 750 mg Admin: 04/07/18 20:44 Dose: 750 mg Lorazepam (Ativan) Confirm Administered Dose 2 mg .ROUTE .STK-MED ONE Stop: 04/06/18 21:20 Last Admin: 04/06/18 21:45 Dose: Not Given Magnesium Oxide (Mag-Ox) 400 mg PO [facility] Stop: 05/08/18 08:59 Last Admin: 04/08/18 09:37 Dose: 400 mg Metoprolol Tartrate (Lopressor) 25 mg PO BID [facility] Stop: 05/07/18 20:59 Last Admin: 04/08/18 09:36 Dose: 25 mg Admin: 04/07/18 20:45 Dose: 25 mg Montelukast Sodium (Singulair) 10 mg PO [facility] Stop: 05/08/18 08:59 Last Admin: 04/08/18 09:35 Dose: 10 mg Multivitamins/Minerals (Caltrate Plus) 1 tab PO BID [facility] Stop: 05/07/18 20:59 Last Admin: 04/08/18 09:36 Dose: 1 tab Admin: 04/07/18 20:46 Dose: 1 tab Pantoprazole Sodium (Protonix) 40 mg PO [facility]; Protocol Stop: 05/08/18 08:59 Last Admin: 04/08/18 09:33 Dose: 40 mg Phenytoin Sodium (Dilantin Er) 300 mg PO QPM J[facility] Stop: 05/07/18 20:59 Last Admin: 04/07/18 20:43 Dose: 300 mg Phenytoin Sodium (Dilantin Er) 200 mg PO QAM J[facility] Stop: 05/08/18 08:59 Last Admin: 04/08/18 09:47 Dose: 200 mg Fluticasone/Salmeterol (Advair Diskus 500/50) 1 puffs INH QAM J[facility]INO Stop: 05/07/18 08:59 Last Admin: 04/08/18 09:33 Dose: 1 puffs Admin: 04/07/18 09:32 Dose: 1 puffs Sodium Chloride (Sodium Chloride Flush) 20 ml IV ONCE STA Stop: 04/06/18 21:20 Last Admin: 04/06/18 21:45 Dose: 20 ml Medical Decision Making Differential Diagnosis Differential Diagnosis includes but is not limited to dehydration, stroke, anemia, hypoglycemia, hyponatremia, hypernatremia, urinary tract infection, pneumonia, bronchitis, sepsis, gastroenteritis, additional abdominal pathology, metabolic abnormalities and infections. Medical Records Attestation: I reviewed the patient's medical records. Home Medications Current Medication List: was personally reviewed by me Laboratory Data Attestation: I reviewed the patient's lab results. Result diagrams: 04/08/18 06:12 04/08/18 06:12 Lab Results 04/06/18 04/06/18 04/06/18 Range/Units 20:50 20:50 20:50 WBC 7.99 (4.8-10.8) K/uL RBC 4.93 (4.2-5.4) M/uL Hgb 15.5 (12.0-16.0) g/dL Hct 45.6 (37-47) % MCV 92.5 (80-100) fL MCH 31.4 (25-34) pg MCHC 34.0 (32-36) g/dL RDW Std Deviation 46.3 (36.4-46.3) fL RDW Coeff of Felisha 13.7 (11.5-14.5) % Plt Count 179 (130-400) K/uL MPV 9.7 (7.4-10.4) fL Immature Gran % (Auto) 0.1 % Neut % (Auto) 65.1 % Lymph % (Auto) 24.3 % [place] % (Auto) 8.3 % Eos % (Auto) 1.8 % Baso % (Auto) 0.4 % Immature Gran # (Auto) 0.01 (0.00-0.02) K/uL Neut # (Auto) 5.21 (1.4-6.5) K/uL Lymph # (Auto) 1.94 (1.2-3.4) K/uL [place] # (Auto) 0.66 H (0.11-0.59) K/uL Eos # (Auto) 0.14 (0-0.5) K/uL Baso # (Auto) 0.03 (0-0.2) K/uL PT 10.0 (9.0-12.0) Seconds INR 1.0 (0.9-1.1) APTT 24.5 (21.0-31.0) Seconds PTT Ratio 0.9 Sodium 138 (136-145) mmol/L Potassium 3.7 (3.5-5.1) mmol/L Chloride 102 (98-107) mmol/L Carbon Dioxide 29 (21-32) mmol/L Anion Gap 7.0 (3-11) BUN 16 (7-18) mg/dl Creatinine 0.84 (0.6-1.2) mg/dl Est Cr Clr Drug Dosing 52.8 ml/min Est GFR ( Amer) 81.0 Est GFR (Non-Af Amer) 69.9 BUN/Creatinine Ratio 18.4 (10-20) Glucose 94 (70-99) mg/dl POC Glucose (70-99) Estimat Average Glucose mg/dl Hemoglobin A1c (4.5-5.6) % Calcium 9.1 (8.5-10.1) mg/dl Magnesium 1.9 (1.8-2.4) mg/dl Total Bilirubin (0.2-1) mg/dl Direct Bilirubin (0-0.2) mg/dl AST (15-37) U/L ALT (12-78) U/L Alkaline Phosphatase (45-117) U/L CK-MB (CK-2) 1.9 (0.5-3.6) ng/ml Troponin I < 0.015 (0-0.045) ng/ml Total Protein (6.4-8.2) gm/dl Albumin (3.4-5.0) gm/dl Phenytoin (10-20) mcg/ml 04/06/18 04/06/18 04/07/18 Range/Units 20:50 21:17 06:17 WBC (4.8-10.8) K/uL RBC (4.2-5.4) M/uL Hgb (12.0-16.0) g/dL Hct (37-47) % MCV (80-100) fL MCH (25-34) pg MCHC (32-36) g/dL RDW Std Deviation (36.4-46.3) fL RDW Coeff of Felisha (11.5-14.5) % Plt Count (130-400) K/uL MPV (7.4-10.4) fL Immature Gran % (Auto) % Neut % (Auto) % Lymph % (Auto) % [place] % (Auto) % Eos % (Auto) % Baso % (Auto) % Immature Gran # (Auto) (0.00-0.02) K/uL Neut # (Auto) (1.4-6.5) K/uL Lymph # (Auto) (1.2-3.4) K/uL [place] # (Auto) (0.11-0.59) K/uL Eos # (Auto) (0-0.5) K/uL Baso # (Auto) (0-0.2) K/uL PT (9.0-12.0) Seconds INR (0.9-1.1) APTT (21.0-31.0) Seconds PTT Ratio Sodium 139 (136-145) mmol/L Potassium 4.1 (3.5-5.1) mmol/L Chloride 107 (98-107) mmol/L Carbon Dioxide 26 (21-32) mmol/L Anion Gap 6.0 (3-11) BUN 9 D (7-18) mg/dl Creatinine 0.66 (0.6-1.2) mg/dl Est Cr Clr Drug Dosing 70.4 ml/min Est GFR ( Amer) 103.0 Est GFR (Non-Af Amer) 88.9 BUN/Creatinine Ratio 14.4 (10-20) Glucose 84 (70-99) mg/dl POC Glucose 90 (70-99) Estimat Average Glucose mg/dl Hemoglobin A1c (4.5-5.6) % Calcium 8.5 (8.5-10.1) mg/dl Magnesium (1.8-2.4) mg/dl Total Bilirubin 0.2 (0.2-1) mg/dl Direct Bilirubin < 0.1 (0-0.2) mg/dl AST 22 (15-37) U/L ALT 21 (12-78) U/L Alkaline Phosphatase 89 (45-117) U/L CK-MB (CK-2) (0.5-3.6) ng/ml Troponin I (0-0.045) ng/ml Total Protein 6.9 (6.4-8.2) gm/dl Albumin 3.2 L (3.4-5.0) gm/dl Phenytoin 12.8 (10-20) mcg/ml 04/07/18 04/07/18 04/07/18 Range/Units 06:17 06:17 12:28 WBC 7.09 (4.8-10.8) K/uL RBC 4.34 (4.2-5.4) M/uL Hgb 13.7 (12.0-16.0) g/dL Hct 39.9 (37-47) % MCV 91.9 (80-100) fL MCH 31.6 (25-34) pg MCHC 34.3 (32-36) g/dL RDW Std Deviation 45.9 (36.4-46.3) fL RDW Coeff of Felisha 13.6 (11.5-14.5) % Plt Count 148 (130-400) K/uL MPV 9.3 (7.4-10.4) fL Immature Gran % (Auto) 0.1 % Neut % (Auto) 64.5 % Lymph % (Auto) 25.7 % [place] % (Auto) 7.9 % Eos % (Auto) 1.4 % Baso % (Auto) 0.4 % Immature Gran # (Auto) 0.01 (0.00-0.02) K/uL Neut # (Auto) 4.57 (1.4-6.5) K/uL Lymph # (Auto) 1.82 (1.2-3.4) K/uL [place] # (Auto) 0.56 (0.11-0.59) K/uL Eos # (Auto) 0.10 (0-0.5) K/uL Baso # (Auto) 0.03 (0-0.2) K/uL PT (9.0-12.0) Seconds INR (0.9-1.1) APTT (21.0-31.0) Seconds PTT Ratio Sodium (136-145) mmol/L Potassium (3.5-5.1) mmol/L Chloride (98-107) mmol/L Carbon Dioxide (21-32) mmol/L Anion Gap (3-11) BUN (7-18) mg/dl Creatinine (0.6-1.2) mg/dl Est Cr Clr Drug Dosing ml/min Est GFR ( Amer) Est GFR (Non-Af Amer) BUN/Creatinine Ratio (10-20) Glucose (70-99) mg/dl POC Glucose 94 (70-99) Estimat Average Glucose 103 mg/dl Hemoglobin A1c 5.2 (4.5-5.6) % Calcium (8.5-10.1) mg/dl Magnesium (1.8-2.4) mg/dl Total Bilirubin (0.2-1) mg/dl Direct Bilirubin (0-0.2) mg/dl AST (15-37) U/L ALT (12-78) U/L Alkaline Phosphatase (45-117) U/L CK-MB (CK-2) (0.5-3.6) ng/ml Troponin I (0-0.045) ng/ml Total Protein (6.4-8.2) gm/dl Albumin (3.4-5.0) gm/dl Phenytoin (10-20) mcg/ml 04/07/18 04/07/18 04/08/18 Range/Units 16:26 20:38 06:12 WBC 5.31 (4.8-10.8) K/uL RBC 4.35 (4.2-5.4) M/uL Hgb 13.6 (12.0-16.0) g/dL Hct 40.5 (37-47) % MCV 93.1 (80-100) fL MCH 31.3 (25-34) pg MCHC 33.6 (32-36) g/dL RDW Std Deviation 47.2 H (36.4-46.3) fL RDW Coeff of Felisha 13.8 (11.5-14.5) % Plt Count 142 (130-400) K/uL MPV 9.8 (7.4-10.4) fL Immature Gran % (Auto) 0.2 % Neut % (Auto) 60.2 % Lymph % (Auto) 27.5 % [place] % (Auto) 9.8 % Eos % (Auto) 1.9 % Baso % (Auto) 0.4 % Immature Gran # (Auto) 0.01 (0.00-0.02) K/uL Neut # (Auto) 3.20 (1.4-6.5) K/uL Lymph # (Auto) 1.46 (1.2-3.4) K/uL [place] # (Auto) 0.52 (0.11-0.59) K/uL Eos # (Auto) 0.10 (0-0.5) K/uL Baso # (Auto) 0.02 (0-0.2) K/uL PT (9.0-12.0) Seconds INR (0.9-1.1) APTT (21.0-31.0) Seconds PTT Ratio Sodium (136-145) mmol/L Potassium (3.5-5.1) mmol/L Chloride (98-107) mmol/L Carbon Dioxide (21-32) mmol/L Anion Gap (3-11) BUN (7-18) mg/dl Creatinine (0.6-1.2) mg/dl Est Cr Clr Drug Dosing ml/min Est GFR ( Amer) Est GFR (Non-Af Amer) BUN/Creatinine Ratio (10-20) Glucose (70-99) mg/dl POC Glucose 95 101 H (70-99) Estimat Average Glucose mg/dl Hemoglobin A1c (4.5-5.6) % Calcium (8.5-10.1) mg/dl Magnesium (1.8-2.4) mg/dl Total Bilirubin (0.2-1) mg/dl Direct Bilirubin (0-0.2) mg/dl AST (15-37) U/L ALT (12-78) U/L Alkaline Phosphatase (45-117) U/L CK-MB (CK-2) (0.5-3.6) ng/ml Troponin I (0-0.045) ng/ml Total Protein (6.4-8.2) gm/dl Albumin (3.4-5.0) gm/dl Phenytoin (10-20) mcg/ml 04/08/18 04/08/18 04/08/18 Range/Units 06:12 09:31 11:46 WBC (4.8-10.8) K/uL RBC (4.2-5.4) M/uL Hgb (12.0-16.0) g/dL Hct (37-47) % MCV (80-100) fL MCH (25-34) pg MCHC (32-36) g/dL RDW Std Deviation (36.4-46.3) fL RDW Coeff of Felisha (11.5-14.5) % Plt Count (130-400) K/uL MPV (7.4-10.4) fL Immature Gran % (Auto) % Neut % (Auto) % Lymph % (Auto) % [place] % (Auto) % Eos % (Auto) % Baso % (Auto) % Immature Gran # (Auto) (0.00-0.02) K/uL Neut # (Auto) (1.4-6.5) K/uL Lymph # (Auto) (1.2-3.4) K/uL [place] # (Auto) (0.11-0.59) K/uL Eos # (Auto) (0-0.5) K/uL Baso # (Auto) (0-0.2) K/uL PT (9.0-12.0) Seconds INR (0.9-1.1) APTT (21.0-31.0) Seconds PTT Ratio Sodium 139 (136-145) mmol/L Potassium 4.2 (3.5-5.1) mmol/L Chloride 106 (98-107) mmol/L Carbon Dioxide 29 (21-32) mmol/L Anion Gap 4.0 (3-11) BUN 18 D (7-18) mg/dl Creatinine 0.90 (0.6-1.2) mg/dl Est Cr Clr Drug Dosing 51.6 ml/min Est GFR ( Amer) 74.6 Est GFR (Non-Af Amer) 64.3 BUN/Creatinine Ratio 20.4 H (10-20) Glucose 85 (70-99) mg/dl POC Glucose 133 H 89 (70-99) Estimat Average Glucose mg/dl Hemoglobin A1c (4.5-5.6) % Calcium 8.8 (8.5-10.1) mg/dl Magnesium (1.8-2.4) mg/dl Total Bilirubin (0.2-1) mg/dl Direct Bilirubin (0-0.2) mg/dl AST (15-37) U/L ALT (12-78) U/L Alkaline Phosphatase (45-117) U/L CK-MB (CK-2) (0.5-3.6) ng/ml Troponin I (0-0.045) ng/ml Total Protein (6.4-8.2) gm/dl Albumin (3.4-5.0) gm/dl Phenytoin (10-20) mcg/ml Imaging Data Radiologist's Impression: Radiology results as stated below per my review and the radiologist's interpretation: XR chest 1V portable HISTORY: Pt c/o left sided weakness COMPARISON: Chest 09/06/2017. FINDINGS: There are few linear scarlike densities at the left lung base, unchanged. No new focal lung consolidations to suggest pneumonia. No evidence for pulmonary edema. The heart is stable in size. No pleural effusions. No pneumothorax. Prior cholecystectomy. IMPRESSION: No significant change compared to the prior study. No acute process. Electronically signed by: Sherman Hernandez M.D. 04/06/2018 9:[address] CT DOSE: HISTORY: Stroke evaluation TECHNIQUE: Multiaxial CT images of the head were performed without the use of intravenous contrast. Automated exposure control was utilized for this study. A dose lowering technique was utilized adhering to the principles of ALARA. Comparison: Head CT 08/16/2017. Findings: The paranasal sinuses and mastoid air cells are clear. The calvarium and skull base are intact. There is no mass, hematoma, midline shift, acute infarct. White matter hypodensity is nonspecific but suggestive of microvascular ischemic change. The ventricles and sulci demonstrate mild age- related involutional changes. Calcified and atrophic left globe, unchanged. Impression: No acute intracranial abnormality. Atrophy and microvascular ischemic changes. Electronically signed by: Sherman Hernandez M.D. 04/06/2018 9:51 PM HEAD & NECK CTA HISTORY: Symptoms. Pt c/o left sided weakness TECHNIQUE: Multiaxial CT images of the head were performed following the intravenous administration of contrast to evaluate the major cerebral vessels. Multiaxial CT images of the neck were also performed following the intravenous administration of contrast to evaluate the major cervical vessels. Maximum intensity projection images were also obtained. A dose lowering technique was utilized adhering to the principles of ALARA. COMPARISON: Head and neck CTA 08/16/2017. FINDINGS: There is no mass, hematoma, midline shift, or acute infarct. Visualized intracranial internal carotid arteries, distal vertebral arteries, and basilar artery are widely patent. There is no significant stenosis, occlusion, or aneurysm seen within the bilateral ACAs, MCAs, or vending mechanic. Moderate calcified plaque within the bilateral carotid siphons. The aortic arch and proximal great vessels are widely patent. There is an 8 mm groundglass and nodular density within the left upper lobe. This is new from the prior study and therefore likely represents a small focus of inflammatory/ infectious change. There are few additional tiny groundglass nodular densities within the left upper lobe which are similar to the prior study. Stable 1 cm hypodense nodule within the right thyroid lobe. Mild calcified plaque within the bilateral carotid bifurcations. No significant stenosis, occlusion, or dissection within the carotid or vertebral arteries. IMPRESSION: 1. No significant stenosis, occlusion, or aneurysm within the [place]. 2. No significant stenosis, occlusion, or dissection identified within the carotid or vertebral arteries. 3. A few subcentimeter groundglass nodules within the left lung apex. These favor mild inflammatory/infectious change. Electronically signed by: Sherman Hernandez M.D. 04/06/2018 9:58 PM ECG Data Attestation: I personally reviewed and interpreted this ECG as follows: Indication: weakness Rate (beats per minute): 84 Rhythm: normal sinus Findings: no PAC, no PVC, no ST depression and no ST elevation Blood Pressure Blood Pressure Findings: Normal blood pressure Blood Pressure Disposition: further management by hospitalist JESUS Martines This is a 72-year-old female who presents emergency department with left-sided weakness. The patient is tremulous on physical examination. During the physical examination the patient had a full-blown tonic-clonic seizure. She required oxygen after the seizure. She was given 1 mg of Ativan to break the seizure and loaded with both Keppra and phenytoin IV. She had to be frequently reassessed. Due to the somnolence of the patient status post seizure she was discussed with the hospitalist service who agreed to admit the patient. Impression & Plan Seizure Critical Care Time I have personally spent greater than 30 minutes of critical care time in the direct management of this patient. This includes bedside care, interpretation of diagnostic studies, and testing, discussion with consultants, patient, and family members, and other required patient management activities. This 30 minutes is in excess of all separately billable procedures. Discharge Plan Visit Data *Final* Discharge Date/Time: 04/07/18 00:00 Chief Complaint: Stroke/CVA Symptoms Stated Complaint: CVA SX ED Provider: Akira Murray Discharge Problem: Seizure Patient Disposition: Admitted As Inpatient Condition: Good Discharge Instructions Interventions: ED Discharge Assessment Last Done: 04/07/18 00:00 The scribe's documentation has been prepared under my direction and personally reviewed by me in its entirety. I confirm that the note above accurately reflects all work, treatment, procedures, and medical decision making performed by me.
[2018-04-07] MEDS ORDERED: ONDANSETRON INJ 2 MG/ML 2 ML VIAL IV PRN (00:57)
[2018-04-07] MEDS ORDERED: DEXTROSE 50% 50 ML SYRINGE IV PRN (02:00)
[2018-04-07] MEDS ORDERED: GLUCAGON FOR INJ 1 MG VIAL SQ PRN (02:00)
[2018-04-07] MEDS ORDERED: CARBOHYDRATES FOR HYPOGLYCEMIA PO PRN (02:00)
[2018-04-07] MEDS ORDERED: GLUCOSE 10 TABS/TUBE PO PRN (02:00)
[2018-04-07] MEDS ORDERED: GLUCOSE 40% GEL 15 GM TUBE PO PRN (02:00)
[2018-04-07 06:37] LABS: Basophils # (auto) 0.03 K/uL (0-0.2); Basophils % (auto) 0.4 %; Eosinophils % (auto) 1.4 %; Hematocrit (blood only) 39.9 % (37-47); Hemoglobin 13.7 g/dL (12.0-16.0); Immature Granulocytes # (auto) 0.01 K/uL (0.00-0.02); Immature Granulocytes % (auto) 0.1 %; Lymphocytes # (auto) 1.82 K/uL (1.2-3.4); Lymphocytes % (auto) 25.7 %; Mean Corpuscular Hgb Conc 34.3 g/dL (32-36); Mean Corpuscular Volume 91.9 fL (80-100); Mean Platelet Volume 9.3 fL (7.4-10.4); Monocytes # (auto) 0.56 K/uL (0.11-0.59); Monocytes % (auto) 7.9 %; Neutrophils # (auto) 4.57 K/uL (1.4-6.5); Neutrophils % (auto) 64.5 %; Platelet Count 148 K/uL (130-400); RDW Coefficient of Variation 13.6 % (11.5-14.5); RDW Standard Deviation 45.9 fL (36.4-46.3); Red Blood Count 4.34 M/uL (4.2-5.4); White Blood Count 7.09 K/uL (4.8-10.8)
[2018-04-07] MEDS ORDERED: INFLUENZA ADMINISTRATION CHARGE ONE (06:45)
[2018-04-07] MEDS ORDERED: INFLUENZA VACCINE HIGH DOSE 65+ 0.5 ML SYR IM ONE (06:45)
[2018-04-07 07:05] LABS: Estimated Average Glucose 103 mg/dl
[2018-04-07 07:15] LABS: Alanine Aminotransferase 21 U/L (12-78); Albumin Level 3.2 gm/dl (3.4-5.0); Alkaline Phosphatase 89 U/L (45-117); Aspartate Aminotransferase 22 U/L (15-37); BUN Creatinine Ratio 14.4 (10-20); Bilirubin Direct < 0.1 mg/dl (0-0.2); Bilirubin,Total 0.2 mg/dl (0.2-1); Blood Urea Nitrogen 9 mg/dl (7-18); Calcium 8.5 mg/dl (8.5-10.1); Carbon Dioxide 26 mmol/L (21-32); Chloride 107 mmol/L (98-107); Creatinine Clr Calc Pharmacy 70.4 ml/min; Est GFR (Non-African American) 88.9; Glucose 84 mg/dl (70-99); Potassium 4.1 mmol/L (3.5-5.1); Sodium 139 mmol/L (136-145); Total Protein 6.9 gm/dl (6.4-8.2)
[2018-04-07] MEDS: INSULIN ASPART 100 UNITS/ML 3 ML PEN SC SCH ×4 (07:53→20:45)
[2018-04-07] MEDS ORDERED: levETIRAcetam 750 MG in DEXTROSE 5% 100 ML IV SCH (09:00)
[2018-04-07] MEDS ORDERED: PHENYTOIN 200 MG in SYRINGE 0 ML IV SCH (09:00)
[2018-04-07] MEDS ORDERED: 0.9 % SODIUM CHLORIDE FLUSH 20 ML in SYRINGE 0 ML IV SCH (09:00)
[2018-04-07] MEDS: FLUTICASONE/SALMETEROL (ADVAIR) 500/50 INH 14 PUFF INH SCH (09:32)
[2018-04-07] MEDS: HEPARIN SOD 5,000 UNIT/0.5 ML VIAL SQ SCH ×2 (09:33→20:46)
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
[2018-04-07] MEDS ORDERED: PANTOprazole 40 MG in SYRINGE 0 ML IV SCH (11:00)
--- NOTE | 2018-04-07 18:03 | Hospitalist Progress Note ---
Date of Service April 07, 2018 Assessment & Plan (1) Seizure disorder: This patient is a 72 y.o female with history of seizure disorder, Asthma, CVA, diabetes, and GERD admitted for management and treatment of acute seizure. 1. Acute Seizure-sounds like partial complex seizure at home, unclear what exactly was witnessed in the ER after arrival, what but was given Ativan, Keppra and phenytoin loading doses in the ER. -History of seizure disorder -Keppra loading dose, Phenytoin loading dose, and Ativan x2 given in the ED -Phenytoin Level therapeutic at 12.8 -Keppra level pending -Discussed case on the phone with neurology today-her medications from home do not list Keppra, however thinks that she is taking this but is not sure. We will continue Keppra 750 mg p.o. twice daily, restart home phenytoin which was confirmed an increased dose from last year at 200 mg in the morning 3 mg in the evening -Seizure Precautions -Strongly encouraged to make outpatient follow-up with neurology for the future as they have not done this in the past -Difficult social situation it seems -DC Carolina catheter -will likely discharge to home tomorrow (2) Hypercholesteremia: Continue statin (3) Left-sided weakness: With history of prior CVA -left sided weakness on exam is chronic and documented previously, could worsen in the setting of seizure as per neurology -CT head: negative for acute intracranial abnormality. Atrophy and microvascular ischemic changes. -Head CTA: No significant stenosis, occlusion, or aneurysm within the ken[place] of [place]dy. No significant stenosis, occlusion, or dissection identified within the carotid or vertebral arteries. A few subcentimeter groundglass nodules within the left lung apex. - PT/OT evaluations in place -Continue Aspirin and statin daily (4) Emphysema/COPD: Asthma/COPD-stable -Continue home Advair daily -Continue Montelukast (5) Hypertension: Stable -Continue metoprolol (6) Depression: Stable Is not currently on any medications (7) Anemia: Has a history of this but is not currently anemic -Continue ferrous sulfate (8) Diabetes mellitus, type 2: -Holding metformin from home although this was not in her bag of medications from home but was originally listed on her home med rec but I removed it for now -Continue Accuchecks Ac/HS with SSI Hemoglobin A1c here only 5.2%-she does not need any home medications (9) GERD (gastroesophageal reflux disease): Stable -Continue PPI (10) DVT prophylaxis: Heparin SQ Disposition-can transfer off telemetry as has had no cardiac arrhythmias and she did not have a new stroke, this is simply a breakthrough seizure Plan for discharge to home tomorrow if remains stable Subjective Pt feels fine, has no complaints. Reports her left arm was shaking yesterday and confirms she was still awake and talking throughout the episode. reports they have never seen a Neurologist in the office from what he can recall, but willing to go if we schedule the appt. Pt denies headache, nausea, no CP or SOB. She is eating. No BM today. Anxious to get Carolina removed. I spoke with the Pharmacist who has her meds locked up in the pharmacy. Confirmed doses of meds at home, however Keppra was not in her bag of meds locked up in the pharmacy. Neither was omeprazole, metformin, aspirin. thinks she does take Keppra, states "that sounds right," but cannot confirm despite the fact that he gives her the meds daily. For now, will continue Keppra at 750mg bid. Outpt family med [facility] from [facility] reports Keppra 750 bid and Dilantin 200mg qAM and 300mg qPM as an increase in dose last summer. Review of Systems All systems reviewed & are unremarkable except as noted in HPI & below Physical Exam 2 Vital Signs (Past 24 Hours): Last Vital Signs Temp 36.7 C 04/07/18 16:00 Pulse 84 04/07/18 16:00 Resp 18 04/07/18 16:00 BP 124/65 04/07/18 16:00 Pulse Ox 93 04/07/18 16:00 Constitutional: WD/WN, vitals as above Eyes: PERRL, conjunctivae normal, anicteric sclerae ENMT: external ear and nose normal, oropharynx normal Neck: trachea midline, no thyromegaly Respiratory: normal respiratory effort, lungs clear to auscultation Cardiovascular: RRR, no murmur, no edema Gastrointestinal (Abdomen): normal bowel sounds, soft, nontender, no hepatosplenomegaly Musculoskeletal: Extremities: extremities normal to inspection; no cyanosis and no clubbing Skin: no rashes, warm and dry Neurologic: moves all extremities and awake; no focal motor deficits Psychiatric: A+Ox3, euthymic affect Results & Data Laboratory Results 04/07/18 04/07/18 04/07/18 Range/Units 16:26 12:28 06:17 WBC (4.8-10.8) K/uL RBC (4.2-5.4) M/uL Hgb (12.0-16.0) g/dL Hct (37-47) % MCV (80-100) fL MCH (25-34) pg MCHC (32-36) g/dL RDW Std Deviation (36.4-46.3) fL RDW Coeff of Felisha (11.5-14.5) % Plt Count (130-400) K/uL MPV (7.4-10.4) fL Immature Gran % (Auto) % Neut % (Auto) % Lymph % (Auto) % Terrell % (Auto) % Eos % (Auto) % Baso % (Auto) % Immature Gran # (Auto) (0.00-0.02) K/uL Neut # (Auto) (1.4-6.5) K/uL Lymph # (Auto) (1.2-3.4) K/uL Terrell # (Auto) (0.11-0.59) K/uL Eos # (Auto) (0-0.5) K/uL Baso # (Auto) (0-0.2) K/uL PT (9.0-12.0) Seconds INR (0.9-1.1) APTT (21.0-31.0) Seconds PTT Ratio Sodium (136-145) mmol/L Potassium (3.5-5.1) mmol/L Chloride (98-107) mmol/L Carbon Dioxide (21-32) mmol/L Anion Gap (3-11) BUN (7-18) mg/dl Creatinine (0.6-1.2) mg/dl Est Cr Clr Drug Dosing ml/min Est GFR ( Amer) Est GFR (Non-Af Amer) BUN/Creatinine Ratio (10-20) Glucose (70-99) mg/dl POC Glucose 95 94 (70-99) Estimat Average Glucose 103 mg/dl Hemoglobin A1c 5.2 (4.5-5.6) % Calcium (8.5-10.1) mg/dl Magnesium (1.8-2.4) mg/dl Total Bilirubin (0.2-1) mg/dl Direct Bilirubin (0-0.2) mg/dl AST (15-37) U/L ALT (12-78) U/L Alkaline Phosphatase (45-117) U/L CK-MB (CK-2) (0.5-3.6) ng/ml Troponin I (0-0.045) ng/ml Total Protein (6.4-8.2) gm/dl Albumin (3.4-5.0) gm/dl Phenytoin (10-20) mcg/ml Levetiracetam 04/07/18 04/07/18 04/06/18 Range/Units 06:17 06:17 21:17 WBC 7.09 (4.8-10.8) K/uL RBC 4.34 (4.2-5.4) M/uL Hgb 13.7 (12.0-16.0) g/dL Hct 39.9 (37-47) % MCV 91.9 (80-100) fL MCH 31.6 (25-34) pg MCHC 34.3 (32-36) g/dL RDW Std Deviation 45.9 (36.4-46.3) fL RDW Coeff of Felisha 13.6 (11.5-14.5) % Plt Count 148 (130-400) K/uL MPV 9.3 (7.4-10.4) fL Immature Gran % (Auto) 0.1 % Neut % (Auto) 64.5 % Lymph % (Auto) 25.7 % Terrell % (Auto) 7.9 % Eos % (Auto) 1.4 % Baso % (Auto) 0.4 % Immature Gran # (Auto) 0.01 (0.00-0.02) K/uL Neut # (Auto) 4.57 (1.4-6.5) K/uL Lymph # (Auto) 1.82 (1.2-3.4) K/uL Terrell # (Auto) 0.56 (0.11-0.59) K/uL Eos # (Auto) 0.10 (0-0.5) K/uL Baso # (Auto) 0.03 (0-0.2) K/uL PT (9.0-12.0) Seconds INR (0.9-1.1) APTT (21.0-31.0) Seconds PTT Ratio Sodium 139 (136-145) mmol/L Potassium 4.1 (3.5-5.1) mmol/L Chloride 107 (98-107) mmol/L Carbon Dioxide 26 (21-32) mmol/L Anion Gap 6.0 (3-11) BUN 9 D (7-18) mg/dl Creatinine 0.66 (0.6-1.2) mg/dl Est Cr Clr Drug Dosing 70.4 ml/min Est GFR ( Amer) 103.0 Est GFR (Non-Af Amer) 88.9 BUN/Creatinine Ratio 14.4 (10-20) Glucose 84 (70-99) mg/dl POC Glucose 90 (70-99) Estimat Average Glucose mg/dl Hemoglobin A1c (4.5-5.6) % Calcium 8.5 (8.5-10.1) mg/dl Magnesium (1.8-2.4) mg/dl Total Bilirubin 0.2 (0.2-1) mg/dl Direct Bilirubin < 0.1 (0-0.2) mg/dl AST 22 (15-37) U/L ALT 21 (12-78) U/L Alkaline Phosphatase 89 (45-117) U/L CK-MB (CK-2) (0.5-3.6) ng/ml Troponin I (0-0.045) ng/ml Total Protein 6.9 (6.4-8.2) gm/dl Albumin 3.2 L (3.4-5.0) gm/dl Phenytoin (10-20) mcg/ml Levetiracetam 04/06/18 04/06/18 04/06/18 Range/Units 20:50 20:50 20:50 WBC (4.8-10.8) K/uL RBC (4.2-5.4) M/uL Hgb (12.0-16.0) g/dL Hct (37-47) % MCV (80-100) fL MCH (25-34) pg MCHC (32-36) g/dL RDW Std Deviation (36.4-46.3) fL RDW Coeff of Felisha (11.5-14.5) % Plt Count (130-400) K/uL MPV (7.4-10.4) fL Immature Gran % (Auto) % Neut % (Auto) % Lymph % (Auto) % Terrell % (Auto) % Eos % (Auto) % Baso % (Auto) % Immature Gran # (Auto) (0.00-0.02) K/uL Neut # (Auto) (1.4-6.5) K/uL Lymph # (Auto) (1.2-3.4) K/uL Terrell # (Auto) (0.11-0.59) K/uL Eos # (Auto) (0-0.5) K/uL Baso # (Auto) (0-0.2) K/uL PT (9.0-12.0) Seconds INR (0.9-1.1) APTT (21.0-31.0) Seconds PTT Ratio Sodium 138 (136-145) mmol/L Potassium 3.7 (3.5-5.1) mmol/L Chloride 102 (98-107) mmol/L Carbon Dioxide 29 (21-32) mmol/L Anion Gap 7.0 (3-11) BUN 16 (7-18) mg/dl Creatinine 0.84 (0.6-1.2) mg/dl Est Cr Clr Drug Dosing 52.8 ml/min Est GFR ( Amer) 81.0 Est GFR (Non-Af Amer) 69.9 BUN/Creatinine Ratio 18.4 (10-20) Glucose 94 (70-99) mg/dl POC Glucose (70-99) Estimat Average Glucose mg/dl Hemoglobin A1c (4.5-5.6) % Calcium 9.1 (8.5-10.1) mg/dl Magnesium 1.9 (1.8-2.4) mg/dl Total Bilirubin (0.2-1) mg/dl Direct Bilirubin (0-0.2) mg/dl AST (15-37) U/L ALT (12-78) U/L Alkaline Phosphatase (45-117) U/L CK-MB (CK-2) 1.9 (0.5-3.6) ng/ml Troponin I < 0.015 (0-0.045) ng/ml Total Protein (6.4-8.2) gm/dl Albumin (3.4-5.0) gm/dl Phenytoin 12.8 (10-20) mcg/ml Levetiracetam Pending 04/06/18 04/06/18 Range/Units 20:50 20:50 WBC 7.99 (4.8-10.8) K/uL RBC 4.93 (4.2-5.4) M/uL Hgb 15.5 (12.0-16.0) g/dL Hct 45.6 (37-47) % MCV 92.5 (80-100) fL MCH 31.4 (25-34) pg MCHC 34.0 (32-36) g/dL RDW Std Deviation 46.3 (36.4-46.3) fL RDW Coeff of Felisha 13.7 (11.5-14.5) % Plt Count 179 (130-400) K/uL MPV 9.7 (7.4-10.4) fL Immature Gran % (Auto) 0.1 % Neut % (Auto) 65.1 % Lymph % (Auto) 24.3 % Terrell % (Auto) 8.3 % Eos % (Auto) 1.8 % Baso % (Auto) 0.4 % Immature Gran # (Auto) 0.01 (0.00-0.02) K/uL Neut # (Auto) 5.21 (1.4-6.5) K/uL Lymph # (Auto) 1.94 (1.2-3.4) K/uL Terrell # (Auto) 0.66 H (0.11-0.59) K/uL Eos # (Auto) 0.14 (0-0.5) K/uL Baso # (Auto) 0.03 (0-0.2) K/uL PT 10.0 (9.0-12.0) Seconds INR 1.0 (0.9-1.1) APTT 24.5 (21.0-31.0) Seconds PTT Ratio 0.9 Sodium (136-145) mmol/L Potassium (3.5-5.1) mmol/L Chloride (98-107) mmol/L Carbon Dioxide (21-32) mmol/L Anion Gap (3-11) BUN (7-18) mg/dl Creatinine (0.6-1.2) mg/dl Est Cr Clr Drug Dosing ml/min Est GFR ( Amer) Est GFR (Non-Af Amer) BUN/Creatinine Ratio (10-20) Glucose (70-99) mg/dl POC Glucose (70-99) Estimat Average Glucose mg/dl Hemoglobin A1c (4.5-5.6) % Calcium (8.5-10.1) mg/dl Magnesium (1.8-2.4) mg/dl Total Bilirubin (0.2-1) mg/dl Direct Bilirubin (0-0.2) mg/dl AST (15-37) U/L ALT (12-78) U/L Alkaline Phosphatase (45-117) U/L CK-MB (CK-2) (0.5-3.6) ng/ml Troponin I (0-0.045) ng/ml Total Protein (6.4-8.2) gm/dl Albumin (3.4-5.0) gm/dl Phenytoin (10-20) mcg/ml Levetiracetam
[2018-04-07] MEDS: FERROUS SULFATE 325 MG TAB PO SCH (20:43)
[2018-04-07] MEDS: levETIRAcetam 250 MG TAB PO SCH (20:44)
[2018-04-07] MEDS: METOPROLOL TARTRATE 25 MG TAB PO SCH (20:45)
[2018-04-07] MEDS: CALCIUM 600MG + VIT D 400 IU TAB PO SCH (20:46)
[2018-04-07] MEDS ORDERED: SODIUM CHLORIDE 0.9% IV SCH (21:00)
[2018-04-07] MEDS ORDERED: PHENYTOIN SODIUM ER 100 MG CAP PO SCH ×3 (21:00)
[2018-04-07] MEDS ORDERED: PHENYTOIN IV SCH (21:00)
[2018-04-07] MEDS ORDERED: ATORVASTATIN 40 MG TAB PO SCH (21:00)
[2018-04-07] MEDS: ALBUTEROL HFA 8 GM INHALER INH SCH (21:32)
[2018-04-08 07:16] LABS: BUN Creatinine Ratio 20.4 (10-20); Calcium 8.8 mg/dl (8.5-10.1); Creatinine Clr Calc Pharmacy 51.6 ml/min; Est GFR (African American) 74.6; Est GFR (Non-African American) 64.3; Potassium 4.2 mmol/L (3.5-5.1)
[2018-04-08 07:34] LABS: Basophils # (auto) 0.02 K/uL (0-0.2); Basophils % (auto) 0.4 %; Eosinophils % (auto) 1.9 %; Hematocrit (blood only) 40.5 % (37-47); Hemoglobin 13.6 g/dL (12.0-16.0); Immature Granulocytes # (auto) 0.01 K/uL (0.00-0.02); Immature Granulocytes % (auto) 0.2 %; Lymphocytes # (auto) 1.46 K/uL (1.2-3.4); Lymphocytes % (auto) 27.5 %; Mean Corpuscular Hgb Conc 33.6 g/dL (32-36); Mean Corpuscular Volume 93.1 fL (80-100); Mean Platelet Volume 9.8 fL (7.4-10.4); Monocytes # (auto) 0.52 K/uL (0.11-0.59); Monocytes % (auto) 9.8 %; Neutrophils % (auto) 60.2 %; Platelet Count 142 K/uL (130-400); RDW Coefficient of Variation 13.8 % (11.5-14.5); RDW Standard Deviation 47.2 fL (36.4-46.3); Red Blood Count 4.35 M/uL (4.2-5.4); White Blood Count 5.31 K/uL (4.8-10.8)
[2018-04-08] MEDS ORDERED: ASPIRIN 81 MG ECTAB PO SCH (09:00)
[2018-04-08] MEDS ORDERED: PHENYTOIN SODIUM ER 100 MG CAP PO SCH ×2 (09:00)
[2018-04-08] MEDS ORDERED: MAGNESIUM OXIDE 400 MG TAB PO SCH (09:00)
[2018-04-08] MEDS ORDERED: PANTOprazole 40 MG TAB PO SCH (09:00)
[2018-04-08] MEDS ORDERED: MONTELUKAST SODIUM 10 MG TABLET PO SCH (09:00)
[2018-04-08] MEDS: FLUTICASONE/SALMETEROL (ADVAIR) 500/50 INH 14 PUFF INH SCH (09:33)
[2018-04-08] MEDS: METOPROLOL TARTRATE 25 MG TAB PO SCH (09:36)
[2018-04-08] MEDS: CALCIUM 600MG + VIT D 400 IU TAB PO SCH (09:36)
[2018-04-08] MEDS: HEPARIN SOD 5,000 UNIT/0.5 ML VIAL SQ SCH (09:37)
[2018-04-08] MEDS: FERROUS SULFATE 325 MG TAB PO SCH ×2 (09:38→14:03)
[2018-04-08] MEDS: levETIRAcetam 250 MG TAB PO SCH (09:38)
[2018-04-08] MEDS: ALBUTEROL HFA 8 GM INHALER INH SCH (09:40)
[2018-04-08] MEDS: INSULIN ASPART 100 UNITS/ML 3 ML PEN SC SCH ×2 (09:46→13:29)
--- NOTE | 2018-04-08 13:27 | Discharge Summary ---
Date of Service April 08, 2018 Admission HPI Per Admitting Provider Maegan Hood is a 72 y.o female with complex medical history including seizure disorder, diabetes, CVA, Asthma, GERD, HLD, seen in the ED for stroke evaluation. History per RN. Maegan's was sitting with her at home during the evening when she became tremulous and passed out. She was brought to the ED per EMS and had a seizure upon arrival. Mrs. Hood is unable to provide a history but currently denies pain. ED course: Given Ativan x2 , Loading dose of Keppra, Loading dose of Phenytoin. IVF bolus administered. Principal Diagnosis Seizure Discharge Exam Constitutional WD/WN, vitals as above Eyes PERRL, conjunctivae normal, anicteric sclerae ENMT external ear and nose normal, oropharynx normal Neck trachea midline, no thyromegaly Respiratory normal respiratory effort, lungs clear to auscultation Cardiovascular RRR, no murmur, no edema Gastrointestinal (Abdomen) normal bowel sounds, soft, nontender, no hepatosplenomegaly Musculoskeletal Extremities: extremities normal to inspection; no cyanosis and no clubbing Skin no rashes, warm and dry Neurologic moves all extremities and awake; no focal motor deficits Psychiatric A+Ox3, euthymic affect Discharge Data Allergies Allergy/AdvReac Type Severity Reaction Status Date / Time No Known Allergies Allergy Verified 04/06/18 21:47 Consultations Neurology Ordered Studies 04/06/18 21:17 CT head/brain wo con Stat 04/06/18 21:18 CT angio head w con Stat CT angio neck with con Stat Chest x-ray Hospital Course (1) Seizure disorder: This patient is a 72 y.o female with history of seizure disorder, Asthma, CVA, diabetes, and GERD admitted for management and treatment of acute seizure. Seizure-sounds like partial complex seizure at home, unclear what exactly was witnessed in the ER after arrival, what but was given Ativan, Keppra and phenytoin loading doses in the ER. -History of seizure disorder -Was given Keppra loading dose, Phenytoin loading dose, and Ativan x2 given in the ED -Phenytoin Level therapeutic at 12.8 -Keppra level pending at the time of discharge -Discussed case on the phone with neurology-her medications from home do not list Keppra, however thinks that she is taking this but is not sure. The day of discharge, he tells me that there might be a new medication for seizure waiting for him at the pharmacy but he is unsure? We will continue Keppra 750 mg p.o. twice daily, continue phenytoin which was confirmed an increased dose from last year at 200 mg in the morning 300 mg in the evening -Strongly encouraged to make outpatient follow-up with neurology for the future as they have not done this in the past -Difficult social situation it seems Stable for discharge to home with close neurology follow-up -I have also arranged for our pharmacist here to sit down with them later this week and go over all of her medications-she is to bring in all bottles from home. I am greatly appreciative to the pharmacist for doing this for her. (2) Hypercholesteremia: Continue statin (3) Left-sided weakness: With history of prior CVA -left sided weakness on exam is chronic and documented previously, could worsen in the setting of seizure as per neurology -CT head: negative for acute intracranial abnormality. Atrophy and microvascular ischemic changes. -Head CTA: No significant stenosis, occlusion, or aneurysm within the [place] of [place]. No significant stenosis, occlusion, or dissection identified within the carotid or vertebral arteries. A few subcentimeter groundglass nodules within the left lung apex. - PT/OT evaluations in place -Continue Aspirin and statin daily (4) Emphysema/COPD: Asthma/COPD-stable -Continue home Advair daily -Continue Montelukast (5) Hypertension: Stable -Continue metoprolol (6) Depression: Stable Is not currently on any medications (7) Anemia: Has a history of this but is not currently anemic -Continue ferrous sulfate (8) Diabetes mellitus, type 2: -Holding metformin from home although this was not in her bag of medications from home but was originally listed on her home med rec but I removed it for now -Continue Accuchecks Ac/HS with SSI Hemoglobin A1c here only 5.2%-she does not need any home medications (9) GERD (gastroesophageal reflux disease): Stable -Continue PPI (10) DVT prophylaxis: Heparin SQ was provided Disposition-stable for discharge to home Total Time Total Time Spent Total Time Spent (In Minutes): Greater than 30 minutes Total Time Includes: Examination of the Patient, Discharge Planning and Medication Reconciliation Discharge Plan Discharge Items Patient Disposition: Home - Self-Care Reason For Visit: SEIZURE Discharge Diagnosis: Seizure Condition: Good Discharge Goals: Diagnostic testing, Learn about illness and Therapeutic intervention Activity: Resume your previous activity Lifting: Gradually increase as tolerated Bathing: No limitations Exercise/Sports: Gradually increase as tolerated Driving/Machine Use Comment: No driving Non-emergency contact: Primary Care Provider and Neurologist Call non-emergency contact if: you have any medication questions and your symptoms worsen Follow-up/Referrals: [facility] [Outside] - 04/11/18 10:30 am (Please, follow up at [facility] with Dr. Badillo on SaturdayApril 11 at 10:30 am. *If you need to change this appointment, call the office at [phone].) [facility] [Outside] - 04/10/18 1:10 pm (Please, follow up at [facility] Med Office with our outpatient pharmacist on April 10 at 1:10 pm. *The pharmacist will review all of your medications with you and offer instruction. Remember to take all of your medication bottles with you to this appointment. This includes your prescriptions, over the counter medications, herbs, and vitamins. *The office is located in [address] of [facility]. This is the big building next to this [facility]. If you need to change/cancel this appointment, call me at [phone].) Joanna Zheng PA-C [Physician Solution Engineer] - 04/24/18 12:40 pm (Please, follow up at [facility] Neurology Office with Joanna Zheng PA-C on April 24 at 1:00 pm (arrive 12:40 pm). *This office is located at [address] [place] [address] in [place]. If you need to change this appointment, call the office at [phone].) Diet: Heart Healthy Addtl Provider Instructions: You were admitted to the hospital with seizure activity. It is unclear if you were actually taking the medication Keppra at home as you had been in the past. This has been restarted and a prescription will be sent to your pharmacy for you. Please take Keppra (levetiracetam) 750 mg by mouth twice a day. It is very important that you follow-up with the neurologist as scheduled for you. We are also trying to schedule you an appointment with our pharmacist here to go over all of your medications with you to make sure that you are taking the correct medications at home. Please follow-up with your primary care physician as scheduled for you as well. Prescriptions: New levetiracetam 750 mg tablet 750 mg PO BID Qty: 60 RF: 0 Continue meclizine 12.5 mg Tablet 12.5 mg PO TID PRN (Reason: Vertigo) RF: 0 phenytoin sodium extended 100 mg Capsule 200 mg PO QAM RF: 0 aspirin 81 mg Tablet,Delayed Release (Dr/Ec) 81 mg PO QAM RF: 0 magnesium oxide [MagOx] 400 mg (241.3 mg magnesium) Tablet 400 mg PO QAM RF: 0 ferrous sulfate [Iron (ferrous sulfate)] 325 mg (65 mg iron) Tablet 325 mg PO TID RF: 0 fluticasone-salmeterol [Advair Diskus] 500-50 mcg/dose Blister With Device 1 inh INHALATION QAM RF: 0 montelukast 10 mg Tablet 10 mg PO QAM RF: 0 albuterol sulfate 90 mcg/actuation Hfa Aerosol Inhaler 2 puff INHALATION BID RF: 0 metoprolol tartrate 25 mg Tablet 25 mg PO BID RF: 0 omeprazole 20 mg Tablet,Delayed Release (Dr/Ec) 40 mg PO QAM RF: 0 atorvastatin 80 mg Tablet 80 mg PO PM RF: 0 calcium carbonate-vitamin D3 [Calcium 600 + D(3)] 600 mg(1,500mg) -400 unit Tablet 1 tab PO BID RF: 0 phenytoin sodium extended 100 mg Capsule 300 mg PO QPM RF: 0 Visit Report Forms: [facility] Stand-Alone Forms: [facility] Discharge Orders: Discharge Order (Routine); Ordered 04/08/18 Ordered By: Wendy Wu Admission Data Admit Date/Time: 04/06/18 23:31 Attending Provider: Wendy Wu Admit Provider: Aura Veliz Primary Care Provider: Jill Ramey Other Providers: Christian Pan Emile Pierre III Service: Telemetry Medical Other Pending Studies at Discharge: No
== END 2018-04-08 14:54 | disposition home or self-care (01) | DRG 101 ==
LOC: ED 21:12 → 2N 23:31 → SUATTDRO 23:31 → 2N 04-07
DX: J43.9 Emphysema, unspecified; E78.00 Pure hypercholesterolemia, unspecified; I10 Essential (primary) hypertension; Z79.82 Long term (current) use of aspirin; E11.9 Type 2 diabetes mellitus without complications; G40.209 Localization-related (focal) (partial) symptomatic epilepsy and epileptic syndromes with complex partial seizures, not intractable, without status epilepticus; K21.9 Gastro-esophageal reflux disease without esophagitis; I69.354 Hemiplegia and hemiparesis following cerebral infarction affecting left non-dominant side; Z79.899 Other long term (current) drug therapy; F32.9 Major depressive disorder, single episode, unspecified; J45.909 Unspecified asthma, uncomplicated

== ENCOUNTER 2019-04-12 18:07 | Inpatient (IN) ==
--- OUTSIDE RECORDS SUMMARY | 2019-04-12 18:13 | External Medical Summary | Continuity of Care Document ---
:1945 Author Name Louis Rodríguez, Provider Address Unavailable Unavailable , Care Team Providers Name Role Phone Unavailable Unavailable Unavailable CHRISTINA KAUFFMAN Unavailable Unavailable Mary PARMAR Unavailable Unavailable leo Badillo Unavailable Unavailable Unavailable Unavailable Unavailable Assessments Assessment Narrative:Interventions: -MEDICATION RECONCILIATION -MEDICATION EDUCATION -OPTIMAL MEDICATION USE -MEDICATION DOSE/DURATION/INDICATION CLARIFICATION -MEDICATION ADHERENCE CONCERNSAssessed Problems:Encounter for preventive health examinationAnemiaAsthma Problems Asthma (493.90) (J45.909) Anemia (285.9) (D64.9) Aftercare following surgery (V58.89) (Z48.89) Hyperlipidemia (272.4) (E78.5) CHF, acute (428.0) (I50.9) NSTEMI (non-ST elevated myocardial infarction) (410.70) (I21 .4) Seizure disorder (345.90) (G40.909) COPD (chronic obstructive pulmonary disease) (496) (J44.9) Type 2 diabetes mellitus (250.00) (E11.9) Encephalopathy (348.30) (G93.40) CAD (coronary artery disease) (414.00) (I25.10) Cholelithiasis (574.20) (K80.20) Hypertension (401.9) (I10) GERD (gastroesophageal reflux disease) (530.81) (K21.9) Choledocholithiasis (574.50) (K80.50) Allergies and Adverse Reactions No Known Drug Allergies (Allergy) Medications Calcium 600-400 MG-UNIT Oral Tablet Chewable; Take 1 tablet twice daily , M.D. Start: 30-Apr-2018 Refills: 0 Magnesium 400 MG Oral Tablet; Take 1 tablet daily , M.D. Start: 30-Apr-2018 Refills: 0 Ferrous Sulfate 325 (65 Fe) MG Oral Tabl et; TAKE 1 TABLET 3 TIMES DAILY WITH FOOD. , M.D. Start: 30-Apr-2018 Refills: 0 Advair Diskus 500-50 MCG/DOSE Inhalation Aerosol Powder Breath Activated; INHALE 1 PUFF TWICE DAILY. Marcos Start: 30-Apr-2018 Refills: 0 14 Inhaler Pack Atorvastatin Calcium 80 MG Oral Tablet; TAKE 1 TABLET AT BED TIMEMarcos Ayers Start: 12-May-2014 Refills: 0 Phenytoin Sodium Extended 100 MG Oral Ca psule; TAKE 2 CAPSULES IN AM AND 3 CAPSULES IN EVENING (PATIENT TAKES 2 CAPSULES AM AND 1 CAPSULE PM. LAST RX FOR 1 CAPSULE TID FROM PCP) Marcos Start: 12-May-2014 Refills: 0 HYDROcodone-Acetaminophen 10-325 MG Oral Tablet; TAKE 1 TABLET 3 times daily PRN , M.DAndria Refills: 0 Montelukast Sodium 10 MG Oral Tablet; Take 1 tablet daily , M.DAndria Start: 12-May-2014 Refills: 0 Aspirin 81 MG TABS; Take 1 tablet daily , M.DAndria Start: 12-May-2014 Refills: 0 Metoprolol Tartrate 25 MG Oral Tablet; TAKE 1 TABLET TWICE D Marcos SANTOS Start: 12-May-2014 Refills: 0 Procedures History of Laparoscopic Cholecystectomy With Status: Completed 11-Sep-2017 0:00 Cholangiography Immunizations Immunizations not documented Family History Mother No pertinent family history (V49.89) (Z78.9) Status: Active Father No pertinent family history (V49.89) (Z78.9) Status: Active Social History - Smoking Status Never smoker Plan of Treatment Planned Observations Planned Goals not documented Results No Known Results Results not documented Encounters Appointment; Case, LISBETH Marshall 24-Apr-2018 13:00 Encounter Diagnosis: Problem not documented Appointment; Jeison Cao DO 24-Sep-2017 9:10 Encounter Diagnosis: Problem not documented Appointment; Jeison Cao DO 11-Sep-2017 7:00 Encounter Diagnosis: Problem not documented Appointment; Jeison Cao DO 26-Aug-2017 10:00 Encounter Diagnosis: Problem not documented Appointment; Jeiosn Cao DO 25-Jun-2017 10:00 Encounter Diagnosis: Problem not documented
[2019-04-12] MEDS ORDERED: OPTIRAY 320 125ml IV PRN (18:20)
--- NOTE | 2019-04-12 18:25 | CT Scan Report ---
CT head/brain wo con CLINICAL HISTORY: 73 years-old Female presenting with Stroke evaluation, left-sided weakness. TECHNIQUE: Multidetector CT imaging of the head was performed without the use of intravenous contrast . IV contrast: None. One or more dose lowering techniques were used consistent with the principles of ALARA (as low as reasonably achievable), including automatic exposure control, mA or kV adjustment t o individual patient size, and/or use of iterative reconstruction. COMPARISON: 04/06/2018. CT DOSE (mGy.cm): The estimated cumulative dose is 1190.50 mGy.cm. FINDINGS: Breakfast And Room Attendant topogram: Unremarkable. Proportional ventricular and sulcal prominence, likely age-related parenchymal volume loss. No hemorr evonne. Periventricular and subcortical white matter hypoattenuation, nonspecific but likely indicative of chronic small vessel ischemic change. No acute territorial infarct. No mass effect or midline suad ft. No extra-axial fluid collection. Paranasal sinuses and mastoid air cells clear. Calvarium intact. Atrophy of the left eye. IMPRESSION: 1. Chronic small vessel ischemic change. No acute intracranial abnormality. These findings were discussed with Dr. Hughes by Dr. Ghotra on 04/12/2019 6:21 PM. ACT 112: Negative or not required by law. Electronically signed by: Neftali Ghotra M.D. 04/12/2019 6:23 PM
[2019-04-12 18:31] LABS: Basophils # (auto) 0.01 K/uL (0-0.2); Basophils % (auto) 0.1 %; Eosinophils # (auto) 0.09 K/uL (0-0.5); Eosinophils % (auto) 1.1 %; Hematocrit (blood only) 39.4 % (37-47); Hemoglobin 14.1 g/dL (12.0-16.0); Immature Granulocytes # (auto) 0.01 K/uL (0.00-0.02); Immature Granulocytes % (auto) 0.1 %; Lymphocytes # (auto) 1.23 K/uL (1.2-3.4); Lymphocytes % (auto) 14.5 %; Mean Corpuscular Hemoglobin 32.9 pg (25-34); Mean Corpuscular Hgb Conc 35.8 g/dL (32-36); Mean Corpuscular Volume 91.8 fL (80-100); Mean Platelet Volume 9.9 fL (7.4-10.4); Monocytes # (auto) 0.61 K/uL (0.11-0.59); Monocytes % (auto) 7.2 %; Neutrophils # (auto) 6.52 K/uL (1.4-6.5); Platelet Count 168 K/uL (130-400); RDW Coefficient of Variation 12.5 % (11.5-14.5); Red Blood Count 4.29 M/uL (4.2-5.4); White Blood Count 8.47 K/uL (4.8-10.8)
--- NOTE | 2019-04-12 18:40 | CT Scan Report ---
CT angio head w con CLINICAL HISTORY: 73 years-old Female presenting with STROKE, left-sided weakness. TECHNIQUE: Multidetector CT angiography of the head was performed after the administration of intrave nous contrast. 3-D volumetric and/or maximum intensity projection (MIP) images were subsequently gideon nstructed for review. IV contrast: 116 mL of Optiray 320. One or more dose lowering techniques were u sed consistent with the principles of ALARA (as low as reasonably achievable), including automatic ex posure control, mA or kV adjustment to individual patient size, and/or use of iterative reconstructio n. COMPARISON: 04/06/2018. CT DOSE (mGy.cm): The estimated cumulative dose is 1198.50. FINDINGS: Rating Specialist topogram: Unremarkable. Anterior circulation: Atherosclerosis of the cavernous segments of the internal carotid arteries. Int racranial portions of the internal carotid arteries patent to the level of the termini. Anterior cere bral arteries patent. Middle cerebral arteries patent. Anterior communicating artery patent. Posterior circulation: Codominant vertebral arteries. Intradural portions of the vertebral arteries p atent. Posterior inferior cerebellar arteries patent. Basilar artery patent. Anterior inferior cerebe llar arteries poorly visualized. Superior cerebellar arteries patent. Posterior cerebral arteries pat ent. Posterior communicating arteries hypoplastic or aplastic. Dural venous sinuses: Patent. Other: Allowing for the phase of contrast, brain parenchyma within normal limits. Atrophic left eye. Calvarium intact. IMPRESSION: 1. No evidence of aneurysm, focal vessel occlusion, or significant stenosis of the intracranial nikunj lorena. ACT 112: Negative or not required by law. Electronically signed by: Neftali Ghotra M.D. 04/12/2019 6:39 PM
[2019-04-12 18:42] LABS: INR 1.1 (0.9-1.1); Partial Thromboplastin Ratio 0.9; Partial Thromboplastin Time 23.1 Seconds (21.0-31.0); Prothrombin Time 10.8 Seconds (9.0-12.0)
--- NOTE | 2019-04-12 18:47 | CT Scan Report ---
CT angio neck with con CLINICAL HISTORY: 73 years-old Female presenting with STROKE, left-sided weakness. TECHNIQUE: Multidetector CT angiography of the neck was performed after the administration of intrave nous contrast. 3-D volumetric and/or maximum intensity projection (MIP) images were subsequently gideon nstructed for review. IV contrast: 116 mL of Optiray 320. One or more dose lowering techniques were u sed consistent with the principles of ALARA (as low as reasonably achievable), including automatic ex posure control, mA or kV adjustment to individual patient size, and/or use of iterative reconstructio n. Stenosis measurements were based on NASCET-like criteria (distal lumen diameter as the denominator for stenosis measurement). COMPARISON: 04/06/2018. CT DOSE (mGy.cm): The estimated cumulative dose is 1190.50. FINDINGS: Burnishing Machine Operator topogram: Unremarkable. Aortic arch: Atherosclerosis of the three-vessel aortic arch with patent origins of the branch vessel s. Innominate artery: Patent. Right subclavian artery: Patent. Right common carotid artery: Patent. Right internal and external carotid arteries: Right carotid bifurcation with calcified atheroscleroti c plaque that does not significantly narrow the origins of the right internal or external carotid art eries. Focal calcified atherosclerotic plaque also noted in the mid to distal right ICA, again withou t significant narrowing (less than 25% stenosis). Left common carotid artery: Patent. Left internal and external carotid arteries: Left carotid bifurcation with calcified atherosclerotic plaque but does not result in narrowing of the origins of the right internal or external carotid nikunj lorena. Left ICA and ECA widely patent. Left subclavian artery: Patent. Vertebral arteries: Left dominant vertebral artery. Calcified atherosclerotic plaque at the origin of the left vertebral artery without narrowing. Courses of the bilateral vertebral arteries patent. Other: Limited intracranial evaluation within normal limits. Nodule noted in the right lobe of the th yroid measuring less than a centimeter. Degenerative changes of the cervical spine. Punctate bilatera l centrilobular groundglass nodules at the apices. This is overall minimal and similar to prior exam. IMPRESSION: 1. Scattered atherosclerosis. No evidence of dissection, focal vessel occlusion, or significant sten osis of the cervical arteries. 2. Punctate bilateral centrilobular groundglass nodules at the apices may relate to smoking-related lung injury or other minimal inflammatory etiology. ACT 112: Negative or not required by law. Electronically signed by: Neftali Ghotra M.D. 04/12/2019 6:46 PM
[2019-04-12 19:00] LABS: Alanine Aminotransferase 24 U/L (12-78); Albumin Level 3.4 gm/dl (3.4-5.0); Aspartate Aminotransferase 33 U/L (15-37); BUN Creatinine Ratio 13.7 (10-20); Blood Urea Nitrogen 11 mg/dl (7-18); Calcium 8.5 mg/dl (8.5-10.1); Carbon Dioxide 29 mmol/L (21-32); Chloride 105 mmol/L (98-107); Creatinine Clr Calc Pharmacy 58.1 ml/min; Est GFR (African American) 86.7; Est GFR (Non-African American) 74.8; Glucose 169 mg/dl (70-99); Magnesium 1.8 mg/dl (1.8-2.4); Potassium 3.7 mmol/L (3.5-5.1); Sodium 139 mmol/L (136-145)
[2019-04-12 19:05] LABS: Albumin Globulin Ratio 0.9 (0.9-2); Alkaline Phosphatase 82 U/L (45-117); Bilirubin,Total 0.1 mg/dl (0.2-1); Globulin 3.6 gm/dl (2.5-4.0); Troponin I < 0.015 ng/ml (0-0.045)
--- NOTE | 2019-04-12 20:26 | History & Physical Report ---
Date of Service April 12, 2019 Assessment & Plan (1) Left-sided weakness: 73yo C female with history of HTN, HLP, DM, TIA and Seizure disorder. Patient presents with episode of weakness of her head, bilateral UEs, L >R and LLE as well. Symptoms have improved, still with weakness of her LUE. Patient is quite somnolent, having considerable difficulty participating in exam and answering questions. Suspect patient is post-ictal - possible seizure today with Colin's paresis, left sided weakness. She has had multiple episodes of left sided weakness in the past with negative CVA workup. CT head as well as CTA head and neck with no acute findings. -Admit to medical floor with telemetry monitoring, Neuro checks per protocol, NIHSS daily -MRI brain -Echocardiogram -Check lipid panel and HgbAIC -Neurology consultation per protocol - appreciate assistance with this case -Will continue high dose statin - Atorvastatin 80mg -Continue ASA 81mg po daily -Start Plavix 75mg po daily for now. Continue per Neuro recommendations Present on Admission?: Yes (2) Seizure disorder: Patient with known focal epilepsy. Prior EEG wtih left-hemispheric seizures and epileptiform discharges as well as right hemispheric seizures as well. She has been seen by Neuro in the past. She has had multiple workups for CVA as she frequently presents with left sided weakness. -Continue Keppra 750mg po BID. Level pending -Contineu Dilantin 200mg po qAM, 300mg po qPM. Level pending -Ativan as needed for seizure activity -Seizure precautions -Neuro consultation as above Present on Admission?: Yes (3) GERD (gastroesophageal reflux disease): Chronic. Stable -Continue Omeprazole 40mg po daily Present on Admission?: Yes (4) Hypercholesteremia: Chronic -Lipid level ordered for AM -Continue Atorvastatin 80mg po daily Present on Admission?: Yes (5) Hypertension: Chronic. Blood pressure presently 117/82 -Continue metoprolol 25mg po BID -Continue to monitor Present on Admission?: Yes (6) Diabetes mellitus, type 2: Patient with DM listed on problem list. Does not appear to be on any antidiabetic medications. Kod=[id number] today. HgbA1C was 5.2 last year -Check HgbA1c -Will add insulin coverage if needed Present on Admission?: Yes (7) Anemia: Chronic. Hgb=14.1, Hct=39.4 -Continue PO iron supplementation Present on Admission?: Yes (8) Asthma: Chronic. Presently with no cough/wheeze/SOB -Continue Advair -Continue Singulair -Continue Albuterol as needed F/E/N - heplock. Monitor electroltyes and replete as needed. Continue PO magnesium oxide. Heart healthy diet as tolerated after dysphagia screening Ppx - SCDs Code - Full Dispo - Admit to medical floor Present on Admission?: Yes History of Present Illness Chief Complaint: ?seizure vs TIA/CVA Primary Care Provider: Jill Ramey PA-C Patient is somnolent and overall a poor historian. No family at bedside during my encounter. Maegan Hood is a 73yo C female with history of DM/HTN/COPD/TIA and Seizure disorder. She reports laying down to take a nap around 14:30 this afternoon. She slept appx one hour. When she woke up she states she was unable to move. She reports that her head felt "funny" and she was unable to move it. She also reports numbness/weakness in her bilateral upper extremities, L weaker than right as well as some mild LLE weakness as well as a dull headache. Her symptoms lasted until her arrival to the ER around 18:00 when they spontaneously resolved. She reports that she "feels great" at this time. No additional complaints. Specifically patient denies visual changes, speech deficit, chest pain, palpitations, SOB, abdominal pain, nausea, vomiting, diarrhea or constipation. Of note, patient was admitted to [facility] for suspected partial complex seizure in March 2018. She had additional seizure-like activity while in the ER and was given Ativan, loaded with Keppra and Dilantin in the ER at that time. Some confusion over home medications and concern for a difficult social situation at home. ER Course: Code Stroke activated. No tPA administered. Allergies Allergy/AdvReac Type Severity Reaction Status Date / Time No Known Allergies Allergy Verified 04/06/18 21:47 Home Medications Home Medications Medication Instructions Recorded Confirmed Type albuterol sulfate 2 puff INHALATION BID 03/21/18 04/06/18 History aspirin 81 mg PO QAM 03/21/18 04/06/18 History ferrous sulfate [Iron (ferrous 325 mg PO TID 03/21/18 04/06/18 History sulfate)] fluticasone propion-salmeterol 1 inh INHALATION QAM 03/21/18 04/06/18 History [Advair Diskus] magnesium oxide [MagOx] 400 mg PO QAM 03/21/18 04/06/18 History meclizine 12.5 mg PO TID PRN 03/21/18 04/06/18 History metoprolol tartrate 25 mg PO BID 03/21/18 04/06/18 History montelukast 10 mg PO QAM 03/21/18 04/06/18 History omeprazole 40 mg PO QAM 03/21/18 04/07/18 History phenytoin sodium extended 200 mg PO QAM 03/21/18 04/07/18 History atorvastatin 80 mg PO PM 04/06/18 04/06/18 History calcium carbonate-vitamin D3 1 tab PO BID 04/06/18 04/06/18 History [Calcium 600 + D(3)] phenytoin sodium extended 300 mg PO QPM 04/07/18 04/07/18 History levetiracetam 750 mg PO BID #60 tab 04/08/18 Rx Past Med/Surg History Medical History (Updated 04/12/19 @ 20:48 by Mily Crenshaw DO) Depression Diabetes mellitus, type 2 Emphysema/COPD GERD (gastroesophageal reflux disease) Hypercholesteremia (Chronic) Hypertension Seizure disorder (Chronic) "EEG positive in 04/2014" Surgical History History of carpal tunnel surgery of right wrist History of cholecystectomy History of colonoscopy History of esophagogastroduodenoscopy (EGD) Social History Preferred Language: Sinhala Communication Ability: Impaired Admissions Officer Required: Yes Beliefs That Will Affect Care: None Current Living Situation: Spouse Feels Safe at Home: Yes Smoking Status: Former smoker Second Hand Exposure: Yes ( smoked) ; Hx Alcohol Use: No Hx Substance Use: No Review of Systems Review of Systems: All systems reviewed & are unremarkable except as noted in HPI & below Physical Exam Physical Exam: General: patient somnolent, arousable, answers questions then drifts back to sleep, NAD, unkempt Skin: warm, dry, intact, no rashes or lesions HEENT: NC/AT, clouding of left cornea with 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, right pupil round and reactive to light, EOMI, anicteric sclera, conjunctiva without injection, external ear normal to inspection and nontender, nares patent, dry mucus membranes, edentulous, no oropharyngeal lesions, neck supple, trachea midline, no LAD, no thyromegaly, no JVD Heart: +S1/S2, regular, no m/r/g Lungs: equal air entry bilaterally, no rales/rhonchi/wheezes Abd: +BS, soft, NT/ND, no masses/organomegaly/ascites Ext: warm, 2+ pulses in UE/LE bilaterally, no clubbing/cyanosis or edema Neuro: patient somnolent, arousable, oriented to self/location, speech intact, no facial droop although difficult to assess in absence of teeth/dentures, CN II-XII grossly intact, sensation to light touch intact, weakness of LUE 4/5, LLE 4+/5, RUE 5/5, RLE 5/5 Results & Data Vital Signs (Past 12 Hours) Vital Signs Temp Pulse Pulse Resp BP BP Pulse Ox 04/12/19 19:25 85 14 99 04/12/19 19:20 85 19 117/82 99 04/12/19 18:21 37.0 C 87 87 18 161/79 H 145/74 H 98 Laboratory Results Lab Results 04/12/19 04/12/19 04/12/19 Range/Units 17:51 17:51 17:51 WBC 8.47 (4.8-10.8) K/uL RBC 4.29 (4.2-5.4) M/uL Hgb 14.1 (12.0-16.0) g/dL Hct 39.4 (37-47) % MCV 91.8 (80-100) fL MCH 32.9 (25-34) pg MCHC 35.8 (32-36) g/dL RDW Std Deviation 42.0 (36.4-46.3) fL RDW Coeff of Felisha 12.5 (11.5-14.5) % Plt Count 168 (130-400) K/uL MPV 9.9 (7.4-10.4) fL Immature Gran % (Auto) 0.1 % Neut % (Auto) 77.0 % Lymph % (Auto) 14.5 % Rankin % (Auto) 7.2 % Eos % (Auto) 1.1 % Baso % (Auto) 0.1 % Immature Gran # (Auto) 0.01 (0.00-0.02) K/uL Neut # (Auto) 6.52 H (1.4-6.5) K/uL Lymph # (Auto) 1.23 (1.2-3.4) K/uL Rankin # (Auto) 0.61 H (0.11-0.59) K/uL Eos # (Auto) 0.09 (0-0.5) K/uL Baso # (Auto) 0.01 (0-0.2) K/uL PT 10.8 (9.0-12.0) Seconds INR 1.1 (0.9-1.1) APTT 23.1 (21.0-31.0) Seconds PTT Ratio 0.9 Sodium 139 (136-145) mmol/L Potassium 3.7 (3.5-5.1) mmol/L Chloride 105 (98-107) mmol/L Carbon Dioxide 29 (21-32) mmol/L Anion Gap 5.0 (3-11) BUN 11 (7-18) mg/dl Creatinine 0.79 (0.6-1.2) mg/dl Est Cr Clr Drug Dosing 58.1 ml/min Est GFR ( Amer) 86.7 Est GFR (Non-Af Amer) 74.8 BUN/Creatinine Ratio 13.7 (10-20) Glucose 169 H (70-99) mg/dl Calcium 8.5 (8.5-10.1) mg/dl Magnesium 1.8 (1.8-2.4) mg/dl Total Bilirubin 0.1 L (0.2-1) mg/dl AST 33 (15-37) U/L ALT 24 (12-78) U/L Alkaline Phosphatase 82 (45-117) U/L Troponin I < 0.015 (0-0.045) ng/ml Total Protein 7.0 (6.4-8.2) gm/dl Albumin 3.4 (3.4-5.0) gm/dl Globulin 3.6 (2.5-4.0) gm/dl Albumin/Globulin Ratio 0.9 (0.9-2) Phenytoin (10-20) mcg/ml Blood Type Antibody Screen 04/12/19 04/12/19 Range/Units 18:27 18:27 WBC (4.8-10.8) K/uL RBC (4.2-5.4) M/uL Hgb (12.0-16.0) g/dL Hct (37-47) % MCV (80-100) fL MCH (25-34) pg MCHC (32-36) g/dL RDW Std Deviation (36.4-46.3) fL RDW Coeff of Felisha (11.5-14.5) % Plt Count (130-400) K/uL MPV (7.4-10.4) fL Immature Gran % (Auto) % Neut % (Auto) % Lymph % (Auto) % Rankin % (Auto) % Eos % (Auto) % Baso % (Auto) % Immature Gran # (Auto) (0.00-0.02) K/uL Neut # (Auto) (1.4-6.5) K/uL Lymph # (Auto) (1.2-3.4) K/uL Rankin # (Auto) (0.11-0.59) K/uL Eos # (Auto) (0-0.5) K/uL Baso # (Auto) (0-0.2) K/uL PT (9.0-12.0) Seconds INR (0.9-1.1) APTT (21.0-31.0) Seconds PTT Ratio Sodium (136-145) mmol/L Potassium (3.5-5.1) mmol/L Chloride (98-107) mmol/L Carbon Dioxide (21-32) mmol/L Anion Gap (3-11) BUN (7-18) mg/dl Creatinine (0.6-1.2) mg/dl Est Cr Clr Drug Dosing ml/min Est GFR ( Amer) Est GFR (Non-Af Amer) BUN/Creatinine Ratio (10-20) Glucose (70-99) mg/dl Calcium (8.5-10.1) mg/dl Magnesium (1.8-2.4) mg/dl Total Bilirubin (0.2-1) mg/dl AST (15-37) U/L ALT (12-78) U/L Alkaline Phosphatase (45-117) U/L Troponin I (0-0.045) ng/ml Total Protein (6.4-8.2) gm/dl Albumin (3.4-5.0) gm/dl Globulin (2.5-4.0) gm/dl Albumin/Globulin Ratio (0.9-2) Phenytoin 10.2 (10-20) mcg/ml Blood Type A Positive Antibody Screen NEGATIVE Diagnostic Findings CT angio head w con CLINICAL HISTORY: 73 years-old Female presenting with STROKE, left-sided weakness. TECHNIQUE: Multidetector CT angiography of the head was performed after the administration of intravenous contrast. 3-D volumetric and/or maximum intensity projection (MIP) images were subsequently reconstructed for review. IV contrast: 116 mL of Optiray 320. One or more dose lowering techniques were used consistent with the principles of ALARA (as low as reasonably achievable), including automatic exposure control, mA or kV adjustment to individual patient size, and/or use of iterative reconstruction. COMPARISON: 04/06/2018. CT DOSE (mGy.cm): The estimated cumulative dose is 1198.50. FINDINGS: Communications Equipment Supervisor topogram: Unremarkable. Anterior circulation: Atherosclerosis of the cavernous segments of the internal carotid arteries. Intracranial portions of the internal carotid arteries patent to the level of the termini. Anterior cerebral arteries patent. Middle cerebral arteries patent. Anterior communicating artery patent. Posterior circulation: Codominant vertebral arteries. Intradural portions of the vertebral arteries patent. Posterior inferior cerebellar arteries patent. Basilar artery patent. Anterior inferior cerebellar arteries poorly visualized. Superior cerebellar arteries patent. Posterior cerebral arteries patent. Posterior communicating arteries hypoplastic or aplastic. Dural venous sinuses: Patent. Other: Allowing for the phase of contrast, brain parenchyma within normal limits. Atrophic left eye. Calvarium intact. IMPRESSION: 1. No evidence of aneurysm, focal vessel occlusion, or significant stenosis of the intracranial arteries. ACT 112: Negative or not required by law. Electronically signed by: Neftali Ghotra M.D. 04/12/2019 6:39 PM Dictated: 04/12/191834 Transcribed: 04/12/191834 CT angio neck with con CLINICAL HISTORY: 73 years-old Female presenting with STROKE, left-sided weakness. TECHNIQUE: Multidetector CT angiography of the neck was performed after the administration of intravenous contrast. 3-D volumetric and/or maximum intensity projection (MIP) images were subsequently reconstructed for review. IV contrast: 116 mL of Optiray 320. One or more dose lowering techniques were used consistent with the principles of ALARA (as low as reasonably achievable), including automatic exposure control, mA or kV adjustment to individual patient size, and/or use of iterative reconstruction. Stenosis measurements were based on NASCET-like criteria (distal lumen diameter as the denominator for stenosis measurement). COMPARISON: 04/06/2018. CT DOSE (mGy.cm): The estimated cumulative dose is 1190.50. FINDINGS: Communications Equipment Supervisor topogram: Unremarkable. Aortic arch: Atherosclerosis of the three-vessel aortic arch with patent origins of the branch vessels. Innominate artery: Patent. Right subclavian artery: Patent. Right common carotid artery: Patent. Right internal and external carotid arteries: Right carotid bifurcation with calcified atherosclerotic plaque that does not significantly narrow the origins of the right internal or external carotid arteries. Focal calcified atherosclerotic plaque also noted in the mid to distal right ICA, again without significant narrowing (less than 25% stenosis). Left common carotid artery: Patent. Left internal and external carotid arteries: Left carotid bifurcation with calcified atherosclerotic plaque but does not result in narrowing of the origins of the right internal or external carotid arteries. Left ICA and ECA widely patent. Left subclavian artery: Patent. Vertebral arteries: Left dominant vertebral artery. Calcified atherosclerotic p laque at the origin of the left vertebral artery without narrowing. Courses of the bilateral vertebral arteries patent. Other: Limited intracranial evaluation within normal limits. Nodule noted in the right lobe of the thyroid measuring less than a centimeter. Degenerative changes of the cervical spine. Punctate bilateral centrilobular groundglass nodules at the apices. This is overall minimal and similar to prior exam. IMPRESSION: 1. Scattered atherosclerosis. No evidence of dissection, focal vessel occlusion, or significant stenosis of the cervical arteries. 2. Punctate bilateral centrilobular groundglass nodules at the apices may relate to smoking-related lung injury or other minimal inflammatory etiology. ACT 112: Negative or not required by law. Electronically signed by: Neftali Ghotra M.D. 04/12/2019 6:46 PM Dictated: 04/12/191839 Transcribed: 04/12/191839 ----- -- CT head/brain wo con CLINICAL HISTORY: 73 years-old Female presenting with Stroke evaluation, left- sided weakness. TECHNIQUE: Multidetector CT imaging of the head was performed without the use of intravenous contrast. IV contrast: None. One or more dose lowering techniques were used consistent with the principles of ALARA (as low as reasonably achievable), including automatic exposure control, mA or kV adjustment to individual patient size, and/or use of iterative reconstruction. COMPARISON: 04/06/2018. CT DOSE (mGy.cm): The estimated cumulative dose is 1190.50 mGy.cm. FINDINGS: Communications Equipment Supervisor topogram: Unremarkable. Proportional ventricular and sulcal prominence, likely age-related parenchymal volume loss. No hemorrhage. Periventricular and subcortical white matter hypoattenuation, nonspecific but likely indicative of chronic small vessel ischemic change. No acute territorial infarct. No mass effect or midline shift. No extra-axial fluid collection. Paranasal sinuses and mastoid air cells clear. Calvarium intact. Atrophy of the left eye. IMPRESSION: 1. Chronic small vessel ischemic change. No acute intracranial abnormality. These findings were discussed with Dr. Hughes by Dr. Ghotra on 04/12/2019 6: 21 PM. ACT 112: Negative or not required by law. Electronically signed by: Neftali Ghotra M.D. 04/12/2019 6:23 PM Dictated: 04/12/191819 Transcribed: 04/12/191819 ECG Additional Comments: EKG with NSR at 85bpm, normal axis, GW=622, QRS=68, KKx=144, no acute ischemic changes Code Status & VTE Plan Code Status Full per review of prior records VTE Prophylaxis Plan VTE Prophylaxis will be ordered: Yes PG Care Time/CCT Total # of Minutes Spent Total Time Spent with Patient: Total time spent is greater than 50% in coordination of care (as documented) at patient's floor/unit and/or counseling patient: (1) GERD (gastroesophageal reflux disease) Esophagitis presence: esophagitis presence not specified Qualified Code(s): K21.9 - Gastro-esophageal reflux disease without esophagitis (2) Hypertension Hypertension type: essential hypertension Qualified Code(s): I10 - Essential (primary) hypertension (3) Diabetes mellitus, type 2 Diabetes mellitus chcf insulin use: without intermediate frame tender use Diabetes mellitus complication status: without complication Qualified Code(s): E11.9 - Type 2 diabetes mellitus without complications (4) Anemia Anemia type: unspecified type Qualified Code(s): D64.9 - Anemia, unspecified (5) Asthma Asthma severity: moderate Asthma persistence: persistent Asthma complication type: uncomplicated Qualified Code(s): J45.40 - Moderate persistent asthma, uncomplicated
[2019-04-12] MEDS ORDERED: ALBUTEROL HFA 8 GM INHALER INH PRN (21:06)
[2019-04-12] MEDS ORDERED: ACETAMINOPHEN 325 MG TAB PO PRN (21:06)
[2019-04-12] MEDS ORDERED: PHENYTOIN SODIUM ER 100 MG CAP PO SCH (21:06)
[2019-04-12] MEDS ORDERED: METOPROLOL TARTRATE 25 MG TAB PO SCH (21:06)
[2019-04-12] MEDS ORDERED: levETIRAcetam 250 MG TAB PO SCH (21:06)
[2019-04-12] MEDS ORDERED: LORazepam 1 MG/2 ML VIAL IV PRN (21:06)
[2019-04-12] MEDS ORDERED: ATORVASTATIN 40 MG TAB PO SCH (21:06)
[2019-04-12] MEDS ORDERED: PHENYTOIN IV SCH ×2 (23:00)
[2019-04-12] MEDS ORDERED: 0.9 % SODIUM CHLORIDE FLUSH 20 ML in SYRINGE 0 ML IV ONE (23:00)
[2019-04-12] MEDS: FERROUS SULFATE 325 MG TAB PO SCH (23:17)
--- NOTE | 2019-04-12 23:41 | Emergency Department Note ---
Entered by Lisa Hernandez acting as a scribe for Dion Hughes M.D. History of Present Illness General Chief complaint: Stroke Alert Time Seen by Provider: 04/12/19 18:20 Source: patient, family and EMS Mode of arrival: EMS History of Present Illness Onset (ago): hour(s) (4:30PM today ) Location: left (could not move left arm or left leg ) Pain Consistency: + now resolved Associated symptoms: + denies other symptoms (pain) The patient is a 73 year old female who takes ASP daily with a history of seizure disorder, emphysema/COPD, asthma, DM2, HTN, and hypercholesteremia who presents to the Emergency Room for a stroke alert. The patient went to take a nap around 3:00PM today and when she woke up around 4:30PM and began having issues on her left side. The patient explains that she could not move her left arm or her left leg. She states she did not fall and is unsure if she had a sei zure or not. Additionally she admits that she is currently not in any pain and had complete resolution of symptoms in EMS route. The patient offers no further concerns at this time. Home Medications Home Medications Medication Instructions Recorded Confirmed Type albuterol sulfate 2 puff INHALATION BID 03/21/18 04/12/19 History aspirin 81 mg PO QAM 03/21/18 04/12/19 History ferrous sulfate [Iron (ferrous 325 mg PO TID 03/21/18 04/12/19 History sulfate)] fluticasone propion-salmeterol 1 inh INHALATION QAM 03/21/18 04/12/19 History [Advair Diskus] magnesium oxide [MagOx] 400 mg PO QAM 03/21/18 04/12/19 History meclizine 12.5 mg PO TID PRN 03/21/18 04/12/19 History metoprolol tartrate 25 mg PO BID 03/21/18 04/12/19 History montelukast 10 mg PO QAM 03/21/18 04/12/19 History omeprazole 40 mg PO QAM 03/21/18 04/12/19 History phenytoin sodium extended 200 mg PO QAM 03/21/18 04/12/19 History atorvastatin 80 mg PO PM 04/06/18 04/12/19 History calcium carbonate-vitamin D3 1 tab PO BID 04/06/18 04/12/19 History [Calcium 600 + D(3)] phenytoin sodium extended 300 mg PO QPM 04/07/18 04/12/19 History levetiracetam 750 mg PO BID #60 tab 04/08/18 04/12/19 Rx Allergies Allergy/AdvReac Type Severity Reaction Status Date / Time No Known Allergies Allergy Verified 04/06/18 21:47 Past Med/Surg History Medical History (Updated 04/12/19 @ 20:48 by Mily Crenshaw DO) Depression Diabetes mellitus, type 2 Emphysema/COPD GERD (gastroesophageal reflux disease) Hypercholesteremia (Chronic) Hypertension Seizure disorder (Chronic) "EEG positive in 04/2014" Surgical History History of carpal tunnel surgery of right wrist History of cholecystectomy History of colonoscopy History of esophagogastroduodenoscopy (EGD) Social History Preferred Language: Bhutanese Communication Ability: Effective Rn Ostomy Required: No Beliefs That Will Affect Care: None Current Living Situation: Spouse Current Living Situation Comment: pt came in from ER with dirt, feces and urine on feet and groin area. Feels Safe at Home: Yes Smoking Status: Unknown if ever smoked Hx Alcohol Use: No Hx Substance Use: No Review of Systems See HPI for pertinent positives & negatives. and A total of 10 systems reviewed and were otherwise negative Physical Exam Vital Signs Vital Signs - 24 hr 04/12/19 18:21 04/12/19 19:20 04/12/19 19:25 Temperature 37.0 C Temperature Source Oral Pulse Rate 87 85 Pulse Rate [Finger] 87 85 Pulse Rhythm Regular Pulse Rhythm [Finger] Regular Pulse Strength [Finger] Normal Respiratory Rate 18 19 14 Respiratory Effort / Characteristics Non-Labored Spontaneous Respiratory Depth Normal Respiratory Pattern Regular Blood Pressure 161/79 H Blood Pressure [Right Arm] 145/74 H 117/82 Blood Pressure Mean 106 Blood Pressure Mean [Right Arm] 97 93 Blood Pressure Position [Right Arm] Lying Pulse Oximetry 98 99 99 Oxygen Delivery Method Room Air Room Air Room Air Sepsis Recent Fever Within 48 Hours No Sepsis New/Unexplained Change in Mental Status No Sepsis Action Taken by Nursing No Action Required GENERAL: Awake, alert, no slurred speech, in no distress HENT: Normocephalic, atraumatic. Poor dentition. EYES: Normal conjunctiva. Sclera non-icteric. Diminished vision of left eye, pt reports chronic. NECK: Supple. No nuchal rigidity. RESPIRATORY: Clear to auscultation. Normal respiratory effort. CARDIAC: Normal rate. Normal rhythm. Extremities warm and well perfused. GI: Soft, non-distended. No tenderness to palpation. RECTAL: Deferred. MUSCULOSKELETAL: Atraumatic. Chest examination reveals no tenderness. LOWER EXTREMITIES: Calves are equal size bilaterally and non-tender. No edema NEURO: Normal sensorium. No sensory or motor deficits noted. No facial droop. No slurred speech. SKIN: Warm and dry. No rash or jaundice noted. Course Course 1804: Past medical records reviewed. The patient was evaluated in room B01. A complete history and physical exam was performed. 1825: I spoke to Ana Blandon [facility] who recommends a seizure and stroke workup and no TPA. 1914: I spoke to Dr. Crenshaw who will further evaluate the patient. 1916: I checked on the patient and updated her on plan to admit. The patient verbally expressed understanding and agreement of the treatment plan. The patient will be evaluated for further treatment. Administered Medications Atorvastatin Calcium (Lipitor) 80 mg PO PM JUVENTINO Stop: 05/12/19 21:05 Last Admin: 04/12/19 23:17 Dose: Not Given Documented by: [id number] Ferrous Sulfate (Feosol) 325 mg PO TID JUVENTINO Stop: 05/12/19 21:29 Last Admin: 04/12/19 23:17 Dose: Not Given Documented by: [id number] Phenytoin 300 mg/ Syringe 6 mls @ 0.5 mls/min IV QPM JUVENTINO Stop: 05/12/19 22:59 Last Admin: 04/12/19 23:34 Dose: 0.5 mls/min Documented by: [id number] Ioversol (Optiray 320 125ml) 116 ml IV ONCE PRN PRN Reason: Interaction Checking Stop: 04/16/19 18:19 Last Admin: 04/12/19 18:21 Dose: 116 ml Documented by: [id number] Discontinued Medications Sodium Chloride 20 ml/ Syringe 20 mls @ 10 mls/min IV 2300,2301 ONE Stop: 04/12/19 23:01 Last Admin: 04/12/19 23:35 Dose: 10 mls/min Documented by: [id number] Levetiracetam (Keppra) 750 mg PO BID [facility] Stop: 05/12/19 21:05 Last Admin: 04/12/19 23:22 Dose: Not Given Documented by: [id number] Metoprolol Tartrate (Lopressor) 25 mg PO BID J[facility]ENTINO Stop: 05/12/19 21:05 Last Admin: 04/12/19 23:22 Dose: Not Given Documented by: [id number] Phenytoin Sodium (Dilantin Er) 300 mg PO QPM JUVENTINO Stop: 05/12/19 21:05 Last Admin: 04/12/19 23:22 Dose: Not Given Documented by: [id number] Medical Decision Making Differential Diagnosis Differential diagnoses includes but is not limited to toxic, metabolic, infectious, traumatic, cardiac, neurologic, hematologic, psychiatric and inf lammatory etiologies. Medical Records Attestation: I reviewed the patient's medical records. Home Medications Current Medication List: was personally reviewed by me Laboratory Data Attestation: I reviewed the patient's lab results. Result diagrams: 04/12/19 17:51 04/12/19 17:51 Lab Results 04/12/19 04/12/19 04/12/19 Range/Units 17:51 17:51 17:51 WBC 8.47 (4.8-10.8) K/uL RBC 4.29 (4.2-5.4) M/uL Hgb 14.1 (12.0-16.0) g/dL Hct 39.4 (37-47) % MCV 91.8 (80-100) fL MCH 32.9 (25-34) pg MCHC 35.8 (32-36) g/dL RDW Std Deviation 42.0 (36.4-46.3) fL RDW Coeff of Felisha 12.5 (11.5-14.5) % Plt Count 168 (130-400) K/uL MPV 9.9 (7.4-10.4) fL Immature Gran % (Auto) 0.1 % Neut % (Auto) 77.0 % Lymph % (Auto) 14.5 % [place] % (Auto) 7.2 % Eos % (Auto) 1.1 % Baso % (Auto) 0.1 % Immature Gran # (Auto) 0.01 (0.00-0.02) K/uL Neut # (Auto) 6.52 H (1.4-6.5) K/uL Lymph # (Auto) 1.23 (1.2-3.4) K/uL [place] # (Auto) 0.61 H (0.11-0.59) K/uL Eos # (Auto) 0.09 (0-0.5) K/uL Baso # (Auto) 0.01 (0-0.2) K/uL PT 10.8 (9.0-12.0) Seconds INR 1.1 (0.9-1.1) APTT 23.1 (21.0-31.0) Seconds PTT Ratio 0.9 Sodium 139 (136-145) mmol/L Potassium 3.7 (3.5-5.1) mmol/L Chloride 105 (98-107) mmol/L Carbon Dioxide 29 (21-32) mmol/L Anion Gap 5.0 (3-11) BUN 11 (7-18) mg/dl Creatinine 0.79 (0.6-1.2) mg/dl Est Cr Clr Drug Dosing 58.1 ml/min Est GFR ( Amer) 86.7 Est GFR (Non-Af Amer) 74.8 BUN/Creatinine Ratio 13.7 (10-20) Glucose 169 H (70-99) mg/dl Calcium 8.5 (8.5-10.1) mg/dl Magnesium 1.8 (1.8-2.4) mg/dl Total Bilirubin 0.1 L (0.2-1) mg/dl AST 33 (15-37) U/L ALT 24 (12-78) U/L Alkaline Phosphatase 82 (45-117) U/L Troponin I < 0.015 (0-0.045) ng/ml Total Protein 7.0 (6.4-8.2) gm/dl Albumin 3.4 (3.4-5.0) gm/dl Globulin 3.6 (2.5-4.0) gm/dl Albumin/Globulin Ratio 0.9 (0.9-2) Prolactin ng/ml Phenytoin (10-20) mcg/ml Blood Type Antibody Screen 04/12/19 04/12/19 04/12/19 Range/Units 18:27 18:27 19:34 WBC (4.8-10.8) K/uL RBC (4.2-5.4) M/uL Hgb (12.0-16.0) g/dL Hct (37-47) % MCV (80-100) fL MCH (25-34) pg MCHC (32-36) g/dL RDW Std Deviation (36.4-46.3) fL RDW Coeff of Felisha (11.5-14.5) % Plt Count (130-400) K/uL MPV (7.4-10.4) fL Immature Gran % (Auto) % Neut % (Auto) % Lymph % (Auto) % [place] % (Auto) % Eos % (Auto) % Baso % (Auto) % Immature Gran # (Auto) (0.00-0.02) K/uL Neut # (Auto) (1.4-6.5) K/uL Lymph # (Auto) (1.2-3.4) K/uL [place] # (Auto) (0.11-0.59) K/uL Eos # (Auto) (0-0.5) K/uL Baso # (Auto) (0-0.2) K/uL PT (9.0-12.0) Seconds INR (0.9-1.1) APTT (21.0-31.0) Seconds PTT Ratio Sodium (136-145) mmol/L Potassium (3.5-5.1) mmol/L Chloride (98-107) mmol/L Carbon Dioxide (21-32) mmol/L Anion Gap (3-11) BUN (7-18) mg/dl Creatinine (0.6-1.2) mg/dl Est Cr Clr Drug Dosing ml/min Est GFR ( Amer) Est GFR (Non-Af Amer) BUN/Creatinine Ratio (10-20) Glucose (70-99) mg/dl Calcium (8.5-10.1) mg/dl Magnesium (1.8-2.4) mg/dl Total Bilirubin (0.2-1) mg/dl AST (15-37) U/L ALT (12-78) U/L Alkaline Phosphatase (45-117) U/L Troponin I (0-0.045) ng/ml Total Protein (6.4-8.2) gm/dl Albumin (3.4-5.0) gm/dl Globulin (2.5-4.0) gm/dl Albumin/Globulin Ratio (0.9-2) Prolactin 11.80 ng/ml Phenytoin 10.2 (10-20) mcg/ml Blood Type A Positive Antibody Screen NEGATIVE Imaging Data Radiologist's Impression: Radiology results as stated below per my review and the radiologist's interpretation: CT angio head w con CLINICAL HISTORY: 73 years-old Female presenting with STROKE, left-sided weakness. TECHNIQUE: Multidetector CT angiography of the head was performed after the administration of intravenous contrast. 3-D volumetric and/or maximum intensity projection (MIP) images were subsequently reconstructed for review. IV contrast: 116 mL of Optiray 320. One or more dose lowering techniques were used consistent with the principles of ALARA (as low as reasonably achievable), including automatic exposure control, mA or kV adjustment to individual patient size, and/or use of iterative reconstruction. COMPARISON: 04/06/2018. CT DOSE (mGy.cm): The estimated cumulative dose is 1198.50. FINDINGS: Railroad Shop Inspector topogram: Unremarkable. Anterior circulation: Atherosclerosis of the cavernous segments of the internal carotid arteries. Intracranial portions of the internal carotid arteries patent to the level of the termini. Anterior cerebral arteries patent. Middle cerebral arteries patent. Anterior communicating artery patent. Posterior circulation: Codominant vertebral arteries. Intradural portions of the vertebral arteries patent. Posterior inferior cerebellar arteries patent. Basilar artery patent. Anterior inferior cerebellar arteries poorly visualized. Superior cerebellar arteries patent. Posterior cerebral arteries patent. Posterior communicating arteries hypoplastic or aplastic. Dural venous sinuses: Patent. Other: Allowing for the phase of contrast, brain parenchyma within normal limits. Atrophic left eye. Calvarium intact. IMPRESSION: 1. No evidence of aneurysm, focal vessel occlusion, or significant stenosis of the intracranial arteries. ACT 112: Negative or not required by law. Electronically signed by: Neftali Ghotra M.D. 04/12/2019 6:[address] angio neck with con CLINICAL HISTORY: 73 years-old Female presenting with STROKE, left-sided weakness. TECHNIQUE: Multidetector CT angiography of the neck was performed after the administration of intravenous contrast. 3-D volumetric and/or maximum intensity projection (MIP) images were subsequently reconstructed for review. IV contrast: 116 mL of Optiray 320. One or more dose lowering techniques were used consistent with the principles of ALARA (as low as reasonably achievable), including automatic exposure control, mA or kV adjustment to individual patient size, and/or use of iterative reconstruction. Stenosis measurements were based on NASCET-like criteria (distal lumen diameter as the denominator for stenosis measurement). COMPARISON: 04/06/2018. CT DOSE (mGy.cm): The estimated cumulative dose is 1190.50. FINDINGS: Railroad Shop Inspector topogram: Unremarkable. Aortic arch: Atherosclerosis of the three-vessel aortic arch with patent origins of the branch vessels. Innominate artery: Patent. Right subclavian artery: Patent. Right common carotid artery: Patent. Right internal and external carotid arteries: Right carotid bifurcation with calcified atherosclerotic plaque that does not significantly narrow the origins of the right internal or external carotid arteries. Focal calcified atherosclerotic plaque also noted in the mid to distal right ICA, again without significant narrowing (less than 25% stenosis). Left common carotid artery: Patent. Left internal and external carotid arteries: Left carotid bifurcation with calc ified atherosclerotic plaque but does not result in narrowing of the origins of the right internal or external carotid arteries. Left ICA and ECA widely patent. Left subclavian artery: Patent. Vertebral arteries: Left dominant vertebral artery. Calcified atherosclerotic plaque at the origin of the left vertebral artery without narrowing. Courses of the bilateral vertebral arteries patent. Other: Limited intracranial evaluation within normal limits. Nodule noted in the right lobe of the thyroid measuring less than a centimeter. Degenerative changes of the cervical spine. Punctate bilateral centrilobular groundglass nodules at the apices. This is overall minimal and similar to prior exam. IMPRESSION: 1. Scattered atherosclerosis. No evidence of dissection, focal vessel occlusion, or significant stenosis of the cervical arteries. 2. Punctate bilateral centrilobular groundglass nodules at the apices may relate to smoking-related lung injury or other minimal inflammatory etiology. ACT 112: Negative or not required by law. Electronically signed by: Neftali Ghotra M.D. 04/12/2019 6:[address] head/brain wo con CLINICAL HISTORY: 73 years-old Female presenting with Stroke evaluation, left- sided weakness. TECHNIQUE: Multidetector CT imaging of the head was performed without the use of intravenous contrast. IV contrast: None. One or more dose lowering techniques were used consistent with the principles of ALARA (as low as reasonably achievable), including automatic exposure control, mA or kV adjustment to individual patient size, and/or use of iterative reconstruction. COMPARISON: 04/06/2018. CT DOSE (mGy.cm): The estimated cumulative dose is 1190.50 mGy.cm. FINDINGS: Railroad Shop Inspector topogram: Unremarkable. Proportional ventricular and sulcal prominence, likely age-related parenchymal volume loss. No hemorrhage. Periventricular and subcortical white matter hypoattenuation, nonspecific but likely indicative of chronic small vessel ischemic change. No acute territorial infarct. No mass effect or midline shift. No extra-axial fluid collection. Paranasal sinuses and mastoid air cells clear. Calvarium intact. Atrophy of the left eye. IMPRESSION: 1. Chronic small vessel ischemic change. No acute intracranial abnormality. These findings were discussed with Dr. Hughes by Dr. Ghotra on 04/12/2019 6:21 PM. ACT 112: Negative or not required by law. Electronically signed by: Neftali Ghotra M.D. 04/12/2019 6:23 PM ECG Data Attestation: I personally reviewed and interpreted this ECG as follows: Indication: + altered mental status Rate (beats per minute): 85 Rhythm: + normal sinus ECG Intervals/blocks: + Normal QT-c ECG [place]: + Normal ECG ST segments: no ST depression and no ST elevation ECG Findings: no PVCs Blood Pressure Blood Pressure Findings: Elevated blood pressure Blood Pressure Disposition: further management by hospitalist JESUS Martines Patient is a 73-year-old female with a past medical history including diabetes, CVA, asthma, GERD, hyperlipidemia, and seizure disorder presenting via EMS today with concerns for worsening left-sided weakness. Alerted by EMS prior to arrival made a stroke alert. Patient went to sleep around 3 PM and awoke around 430 with left arm and left leg weakness. History of TIAs. In review of medical records available here appears the patient had similar presentation last March it was felt to have a seizure at that time. Patient is alert and verbal at this time. No other traumas reported. Patient had CT and CT angiograms of the head and neck performed here as a stroke alert without acute findings. Upon arrival in my evaluation of the CT scan of the patient had resolution of symptoms and was fully verbal moving all extremities. Patient states she may to have some tremor and possible shaking of her arms and legs earlier. She does have consciousness of this. Unsure if this represents a seizure but given her significant improvement she is not a candidate for TPA. Discussed briefly with stroke neurology from [place]. Patient requires TIA and seizure work-up. Keppra and Dilantin levels were sent. Dilantin therapeutic. No significant le ukocytosis or anemia is noted. I doubt this is acutely cardiac. Given the fact the patient baseline does not make aggressive medication changes. For further evaluation patient was agreeable for admission and discussed with the hospitalist. Patient again seems to have returned to baseline. Impression & Plan TIA (transient ischemic attack), Left-sided weakness Discharge Plan Visit Data *Final* Discharge Date/Time: 04/12/19 20:29 Chief Complaint: Stroke Alert ED Provider: Dion Hughes Discharge Problem: TIA (transient ischemic attack), Left-sided weakness Patient Disposition: Admitted As Inpatient Discharge Instructions Interventions: ED Discharge Assessment Last Done: 04/12/19 20:29 The emibe's documentation has been prepared under my direction and personally reviewed by me in its entirety. I confirm that the note above accurately reflects all work, treatment, procedures, and medical decision making performed by me.
[2019-04-12] MEDS: METOPROLOL TARTRATE 1 MG/ML VIAL IV SCH (23:57)
[2019-04-12] MEDS: levETIRAcetam 750 MG in DEXTROSE 5% 100 ML IV SCH (23:58)
[2019-04-13 05:51] LABS: Basophils # (auto) 0.01 K/uL (0-0.2); Basophils % (auto) 0.2 %; Eosinophils # (auto) 0.12 K/uL (0-0.5); Eosinophils % (auto) 2.2 %; Hematocrit (blood only) 39.9 % (37-47); Hemoglobin 13.8 g/dL (12.0-16.0); Immature Granulocytes # (auto) 0.01 K/uL (0.00-0.02); Immature Granulocytes % (auto) 0.2 %; Lymphocytes # (auto) 1.39 K/uL (1.2-3.4); Lymphocytes % (auto) 25.7 %; Mean Corpuscular Hemoglobin 32.1 pg (25-34); Mean Corpuscular Hgb Conc 34.6 g/dL (32-36); Mean Corpuscular Volume 92.8 fL (80-100); Mean Platelet Volume 9.9 fL (7.4-10.4); Monocytes % (auto) 9.3 %; Neutrophils # (auto) 3.37 K/uL (1.4-6.5); Neutrophils % (auto) 62.4 %; Platelet Count 139 K/uL (130-400); RDW Coefficient of Variation 12.7 % (11.5-14.5); RDW Standard Deviation 42.8 fL (36.4-46.3)
[2019-04-13 06:14] LABS: BUN Creatinine Ratio 12.3 (10-20); Calcium 8.7 mg/dl (8.5-10.1); Creatinine Clr Calc Pharmacy 63.6 ml/min; Est GFR (Non-African American) 83.7; Potassium 4.2 mmol/L (3.5-5.1)
[2019-04-13] MEDS: METOPROLOL TARTRATE 1 MG/ML VIAL IV SCH ×2 (06:23→13:22)
[2019-04-13 07:13] LABS: Estimated Average Glucose 100 mg/dl; Hemoglobin A1C 5.1 % (4.5-5.6)
[2019-04-13] MEDS ORDERED: INFLUENZA VACCINE HIGH DOSE 65+ 0.5 ML SYR IM ONE (08:00)
[2019-04-13] MEDS ORDERED: INFLUENZA ADMINISTRATION CHARGE ONE (08:00)
[2019-04-13] MEDS: levETIRAcetam 750 MG in DEXTROSE 5% 100 ML IV SCH (08:55)
[2019-04-13] MEDS ORDERED: PHENYTOIN SODIUM ER 100 MG CAP PO SCH (09:00)
[2019-04-13] MEDS ORDERED: 0.9 % SODIUM CHLORIDE FLUSH 20 ML in SYRINGE 0 ML IV SCH (09:00)
[2019-04-13] MEDS: FERROUS SULFATE 325 MG TAB PO SCH ×2 (09:00→13:26)
[2019-04-13] MEDS ORDERED: ASPIRIN 81 MG ECTAB PO SCH (09:00)
[2019-04-13] MEDS ORDERED: MAGNESIUM OXIDE 400 MG TAB PO SCH (09:00)
[2019-04-13] MEDS ORDERED: FLUTICASONE/VILANTEROL 200/25MCG 14 PUFFS/INHALER INH SCH (09:00)
[2019-04-13] MEDS ORDERED: PHENYTOIN 200 MG in SYRINGE 0 ML IV SCH (09:00)
[2019-04-13] MEDS ORDERED: PANTOprazole 40 MG TAB PO SCH (09:00)
[2019-04-13] MEDS ORDERED: CLOPIDOGREL BISULFATE 75 MG TAB PO SCH (09:00)
[2019-04-13] MEDS ORDERED: MONTELUKAST SODIUM 10 MG TABLET PO SCH (09:00)
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
--- NOTE | 2019-04-13 16:40 | Discharge Summary ---
Date of Service April 13, 2019 Admission HPI Per Admitting Provider Patient is somnolent and overall a poor historian. No family at bedside during my encounter. Maegan Hood is a 73yo C female with history of DM/HTN/COPD/TIA and Seizure disorder. She reports laying down to take a nap around 14:30 this afternoon. She slept appx one hour. When she woke up she states she was unable to move. She reports that her head felt "funny" and she was unable to move it. She also reports numbness/weakness in her bilateral upper extremities, L weaker than right as well as some mild LLE weakness as well as a dull headache. Her symptoms lasted until her arrival to the ER around 18:00 when they spontaneously resolved. She reports that she "feels great" at this time. No additional complaints. Specifically patient denies visual changes, speech deficit, chest pain, palpitations, SOB, abdominal pain, nausea, vomiting, diarrhea or constipation. Of note, patient was admitted to [facility] for suspected partial complex seizure in March 2018. She had additional seizure-like activity while in the ER and was given Ativan, loaded with Keppra and Dilantin in the ER at that time. Some confusion over home medications and concern for a difficult social situation at home. ER Course: Code Stroke activated. No tPA administered. Principal Diagnosis Seizure Discharge Exam Constitutional WD/WN, vitals as above Eyes EOM intact bilaterally; no conjunctival abnormality ENMT external ear and nose normal, oropharynx normal Neck trachea midline, no thyromegaly normal visual inspection Respiratory normal respiratory effort, lungs clear to auscultation no respiratory distress Cardiovascular RRR, no murmur, no edema Gastrointestinal (Abdomen) Inspection/Auscultation: abdomen normal to inspection; abdomen not distended Musculoskeletal no cyanosis or clubbing, extremities motor strength 5/5 Skin no rashes, warm and dry Neurologic moves all extremities and awake Psychiatric Orientation: alert, oriented to person and cooperative Discharge Data Allergies Allergy/AdvReac Type Severity Reaction Status Date / Time No Known Allergies Allergy Verified 04/06/18 21:47 Consultations 04/12/19 19:14 ED Decision to Admit Stat 04/12/19 21:06 Consult Case Management - Discharge Planning Routine Consult Neurology Routine Ordered Studies 04/12/19 CT angio head w con Stat CT angio neck with con Stat 04/12/19 18:02 CT head/brain wo con Stat Hospital Course (1) Seizure disorder: Patient with known focal epilepsy. Prior EEG wtih left-hemispheric seizures and epileptiform discharges as well as right hemispheric seizures as well. She has been seen by neuro in the past. She has had multiple workups for CVA as she frequently presents with left sided weakness. - Phenytoin level was 10.2 -> Neurology saw her and increased her phenytoin to 300 mg PO BID. Would ideally get a check of her trough level in 2-3 weeks. She should follow up with neurologist, though she has not follow up in the past. This was encourage in person to the patient and her . 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 - Returned to entirely normal by discharge. (3) GERD (gastroesophageal reflux disease): Chronic. Stable. - Continue Omeprazole 40mg po daily (4) Hypercholesteremia: Chronic - Continue Atorvastatin 80mg po daily (5) Hypertension: Chronic. Blood pressure presently 117/82. - Continue metoprolol 25mg po BID (6) Diabetes mellitus, type 2: Patient with DM listed on problem list. Does not appear to be on any antidiabetic medications. - HgbA1C was 5.2 last year & 5.1% this admission. (7) Anemia: Chronic. Hgb=14.1, Hct=39.4 - Continue PO iron supplementation (8) Asthma: Chronic. Presently with no cough/wheeze/SOB. - Continue Advair - Continue Singulair - Continue Albuterol as needed Total Time Total Time Spent Total Time Spent (In Minutes): 35 Discharge Plan Discharge Items Patient Disposition: Home - Home Health Services Reason For Visit: Weakness on the left side Discharge Diagnosis: Likely seizure Activity: Resume your previous activity Non-emergency contact: Primary Care Provider Call non-emergency contact if: your symptoms worsen Follow-up/Referrals: Kristian Estes III, MD [Physician] - (Please see Dr. Estes in 2-3 weeks in his office.) Jill Ramey PA-C [Primary Care Provider] - Diet: Heart Healthy Addtl Attending Provider Instructions: You were admitted after a spell that then caused left-sided weakness. This morning, you are completely back to baseline. Dr. Estes saw you in the hospital and felt that we should increase your anti- seizure medications. We have changed your phenytoin (Dilantin) from 200 mg in the morning and 300 mg at night to 300 mg in the morning and night. Dr. Estes would love to see you in the clinic in 2-3 weeks to re-test your Dilantin level. If you cannot make it to Dr. Estes's office, please have Ms. Ramey check the level. We are also arranging some home help to make sure your medications are arranged with this new episode. Pending Studies at Discharge: No Stand-Alone Forms: My [facility], Smoking Cessation Medications and DC Order Prescriptions: Continued meclizine 12.5 mg Tablet 12.5 mg PO TID PRN (Reason: Vertigo) RF: 0 aspirin 81 mg Tablet,Delayed Release (Dr/Ec) 81 mg PO QAM RF: 0 magnesium oxide [MagOx] 400 mg (241.3 mg magnesium) Tablet 400 mg PO QAM RF: 0 ferrous sulfate [Iron (ferrous sulfate)] 325 mg (65 mg iron) Tablet 325 mg PO TID RF: 0 fluticasone propion-salmeterol [Advair Diskus] 500-50 mcg/dose Blister With Device 1 inh INHALATION QAM RF: 0 montelukast 10 mg Tablet 10 mg PO QAM RF: 0 albuterol sulfate 90 mcg/actuation Hfa Aerosol Inhaler 2 puff INHALATION BID RF: 0 metoprolol tartrate 25 mg Tablet 25 mg PO BID RF: 0 omeprazole 20 mg Tablet,Delayed Release (Dr/Ec) 40 mg PO QAM RF: 0 atorvastatin 80 mg Tablet 80 mg PO PM RF: 0 calcium carbonate-vitamin D3 [Calcium 600 + D(3)] 600 mg(1,500mg) -400 unit Tablet 1 tab PO BID RF: 0 levetiracetam 750 mg tablet 750 mg PO BID Qty: 60 RF: 0 Changed phenytoin sodium extended 100 mg Capsule 300 mg PO BID Qty: 0 RF: 0 Discontinued phenytoin sodium extended 100 mg Capsule 200 mg PO QAM RF: 0 Discharge Orders: Discharge Order (Routine); Ordered 04/13/19 Ordered By: Dayo Ramey Admission Data Admit Date/Time: 04/12/19 20:04 Attending Provider: Dayo Ramey Admit Provider: Mily Crenshaw Primary Care Provider: Jill Ramey Other Providers: Rashad Ash ; Dayo Ramey Other Interventions: Discharge Summary Assessment (RN) Last Done: 04/13/19 14:25 DC Date/Time DO NOT enter until pt leaves facility: 04/13/19 15:00
--- NOTE | 2019-04-13 21:44 | Electrocardiogram Report ---
Test Reason : Blood Pressure : / mmHG Vent. Rate : 085 BPM Atrial Rate : 085 BPM P-R Int : 166 ms QRS Dur : 068 ms QT Int : 346 ms P-R-T Axes : 070 020 042 degrees QTc Int : 411 ms Normal sinus rhythm Low voltage QRS Septal infarct , age undetermined Abnormal ECG When compared with ECG of 06-APR-2018 21:53, Septal infarct is now Present Confirmed by Luis Beatty ([id number]) on 04/13/2019 9:44:45 PM Referred By: REFERRED SELF Confirmed By:Luis Beatty
== END 2019-04-13 15:00 | disposition home health service (06) | DRG 101 ==
LOC: ED 18:07 → SUATTDRO 20:04 → 2N 20:04